=== PATIENT | female | born 1955 | race Caucasian/White ===

== ENCOUNTER 2018-07-23 07:28 | Day surgery (SDC) | payer OTHER, SELFPAY ==
[2018-07-15 13:06] VITALS: BMI 28.9
[2018-07-23 07:45] VITALS: BP 131/91; PULSE 66; RESP 18; TEMP 36.4; O2SAT 100; BMI 28.3
[2018-07-23 08:30] VITALS: BP 131/91; BP 84/48; PULSE 91; RESP 16; TEMP 36.7; O2SAT 98
--- NOTE | 2018-07-23 08:30 | IMM_PTH ---
PATIENT: MANSOOR OSMAN LOC: EN U#:[id number] AGE/SX: 63/F ROOM: RE07/23/[address]: Dr. Theresa Maurice MD : 1955 BED: DIS: 07/23/2018 SPEC #: [id number] RECD: 07/23/18 13:10 STATUS: MYRIAM REQ #: [id number] VITO: 07/23/18 08:[address]: Theresa Maurice DEPT: IMMUNOHISTOCHEMISTRY RECD BY: Rachell Bliss ENTERED: 07/23/18 13:10 SP TYPE: IMMUNO OTHR DR: WOLF Garcia Tissues: A - Stomach, NOS Procedures: H Pylori (initial) PHYSICIAN & INSTITUTION [place] [id number] SPECIMEN INFORMATION: Tissue Source: A - Antral biopsy Clinical Info: Epigastric pain Specimen Number: [id number] CPT code: 38333 METHODOLOGY: Deparaffinized sections of prefer/formalin-fixed tissue or PAP/DQ stained slides are incubated with monoclonal/polyclonal antibodies/oligonucleotide probes. Localization is made via biotin free immunoperoxidase method. Appropriate controls are performed and reacted as expected. Results on target cell population are indicated in the following table: RESULTS: ANTIBODY / CLONE RESULT Block A H Pylori (polyclonal) negative These tests were developed and their performance characteristics determined by [facility]. They may not have been cleared or approved by the [place]. Food and Drug Administration. The FDA has determined that such clearance or approval is not necessary. INTERPRETATION: A. Antral biopsy: Negative for Helicobacter pylori organisms. SJ:bronson 07/24/18
--- NOTE | 2018-07-23 08:30 | OP.ENDO_ITS ---
Patient Name: Evelyn Calle Procedure Date: 07/23/2018 8:05 AM Date of : 1955 Age: 63 Procedure: Upper GI endoscopy Indications: Dyspepsia Providers: Theresa Maurice MD Referring MD: Maddy Yao Medicines: Monitored Anesthesia Care Patient Profile: This is a 63 year old female. Patient has symptoms of chronic dyspepsia. Complications: No immediate complications. Procedure: Pre-Anesthesia Assessment: - Prior to the procedure, a History and Physical was performed, and patient medications and allergies were reviewed. The patient's tolerance of previous anesthesia was also reviewed. The risks and benefits of the procedure and the sedation options and risks were discussed with the patient. All questions were answered, and informed consent was obtained. Prior Anticoagulants: The patient has taken no previous anticoagulant or antiplatelet agents. ASA Grade Assessment: II - A patient with mild systemic disease. After reviewing the risks and benefits, the patient was deemed in satisfactory condition to undergo the procedure. After obtaining informed consent, the endoscope was passed under direct vision. Throughout the procedure, the patient's blood pressure, pulse, and oxygen saturations were monitored continuously. The gastroscope was introduced through the mouth, and advanced to the second part of duodenum. The upper GI endoscopy was accomplished without difficulty. The patient tolerated the procedure well. Scope In: 8:16:38 AM Scope Out: 8:24:18 AM Total Procedure Duration Time 0 hours 7 minutes 40 seconds Findings: The Z-line was irregular. Biopsies were taken with a cold forceps for histology. Mild inflammation characterized by erythema was found in the gastric antrum. Biopsies were taken with a cold forceps for histology. Biopsies were taken with a cold forceps for Helicobacter pylori cultures. The examined duodenum was normal. Impression: - Z-line irregular. Biopsied. - Gastritis. Biopsied. - Normal examined duodenum. Recommendation: - Await pathology results. - Discharge patient to home. - Continue present medications, including protonix 40 mg PO Qday. Procedure Code(s): --- Professional --- 52435, Esophagogastroduodenoscopy, flexible, transoral; with biopsy, single or multiple Diagnosis Code(s): --- Professional --- K22.8, Other specified diseases of esophagus K29.70, Gastritis, unspecified, without bleeding R10.13, Epigastric pain CPT copyright 2017 [employer]. All rights reserved. The codes documented in this report are preliminary and upon hims coder review may be revised to meet current compliance requirements. MD Theresa Costa MD 07/23/2018 8:29:43 AM This report has been signed electronically. Number of Addenda: 0 Note Initiated On: 07/23/2018 8:05 AM
--- NOTE | 2018-07-23 08:30 | EGD_PTH ---
PATIENT: MANSOOR OSMAN LOC: EN U#:[id number] AGE/SX: 63/F ROOM: RE07/23/[address]: Dr. Theresa Maurice MD : 1955 BED: DIS: 07/23/2018 SPEC #: [id number] RECD: 07/23/18 10:42 STATUS: MYRIAM ZEINA #: [id number] VITO: 07/23/18 08:[address]: Theresa Maurice DEPT: SURGICAL PATHOLOGY RECD BY: Michel Velasquez ENTERED: 07/23/18 11:25 SP TYPE: EGD BIOPSY ANIKA DR: WOLF Garcia Tissues: A - Gastric mucous membrane B - Gastric mucous membrane Procedures: Special Stain Group II Surgery Specimen Level IV Alcian Blue/PAS (control) HEADER OPERATION: [place] [place] PRE[place]OP DIAGNOSIS: Epigastric pain TISSUE SUBMITTED: A - Antral biopsy for histo and H. pylori, B - GE junction biopsy MICROSCOPIC DIAGNOSIS A. Antral biopsy: Mild gastritis. See microscopic description and comment. B. GE junction, biopsy: Fragments of gastroesophageal mucosa with chronic inflammation. Intestinal metaplasia (goblet cell metaplasia) is not identified. See comment. SJ:bronson 07/24/18 COMMENT A. The results of immunohistochemistry for Helicobacter pylori will be reported separately ([id number]). B. Alcian blue/PAS stain with matched control is used in the evaluation of the specimen. MICROSCOPIC DESCRIPTION Slides are reviewed. A. The specimen shows fragments of gastric mucosa with chronic inflammatory cell infiltrates in the lamina propria consisting of lymphocytes and plasma cells, consistent with mild chronic gastritis. GROSS DESCRIPTION A - Received in fixative is one container labeled with the patient's name and designated antral biopsy. The specimen consists of one irregular fragment of light carter soft tissue that measures 0.3 x 0.3 x 0.1 cm. The specimen is totally submitted in one cassette. B - Received in fixative is one container labeled with the patient's name and designated GE junction biopsy. The specimen consists of two irregular fragments of light carter soft tissue that in aggregate measure 0.4 x 0.2 x 0.1 cm. The specimen is totally submitted in one cassette. / RUTHY:bronson 07/23/18 TC:3 CPT: 97232 x2, 99929
[2018-07-23 08:35] VITALS: BP 131/91; BP 97/56; PULSE 82; RESP 16; O2SAT 96
[2018-07-23 08:40] VITALS: BP 102/64; BP 131/91; PULSE 75; RESP 16; O2SAT 99
[2018-07-23 08:46] VITALS: BP 112/69; BP 131/91; PULSE 67; RESP 16; TEMP 36.9; O2SAT 99
[2018-07-23 09:24] VITALS: BP 131/91
--- OUTSIDE RECORDS SUMMARY | 2018-09-08 02:32 | XMS RPT_ITS ---
:1955 Author Organization OHIP Support Name Relationship Address Phone [employer] Unavailable [address] + [place] [address] [place] Unavailable [address] + [place] [address] [employer] Unavailable [address] + [place] [address] [place] Unavailable [address] + [place] [address] [employer] Unavailable . + [place] [address] [place] Unavailable [address] + [place], [place] [phone] [place] Unavailable [address] Unavailable [place], [place] [phone] NOT GIVEN Unavailable Unavailable Unavailable [place] Unavailable [address] + [place], [place] [phone] [place] Unavailable [address] Unavailable [place], [place] [phone] NOT GIVEN Unavailable Unavailable Unavailable [place] Unavailable [address] + [place], [place] [phone] [place] Unavailable [address] Unavailable [place], [place] [phone] NOT GIVEN Unavailable Unavailable Unavailable NOT GIVEN Unavailable Unavailable Unavailable NOT GIVEN Unavailable Unavailable Unavailable NOT GIVEN Unavailable Unavailable Unavailable Care Team Providers Name Role Phone Robotham, Theresa Attending Unavailable YAO, SUNNY Referring Unavailable Robotham, Theresa Attending Unavailable Robotham, Theresa Referring Unavailable YAO, SUNNY Primary Care Unavailable Robotham, Theresa Attending Unavailable YAO, SUNNY J Admitting Unavailable YAO, SUNNY J Attending Unavailable YAO, SUNNY J Primary Care Unavailable YAO, SUNNY J Admitting Unavailable YAO, SUNNY J Attending Unavailable YAO, SUNNY J Primary Care Unavailable YAO, SUNNY J Admitting Unavailable YAO, SUNNY J Attending Unavailable YAO, SUNNY J Primary Care Unavailable YAO, SUNNY J Consulting Unavailable PROVIDER, UNKNOWN Consulting Unavailable LOPEZ, PARISH E Admitting Unavailable LOPEZ, PARISH E Attending Unavailable LOPEZ, PARISH E Primary Care Unavailable YAO, SUNNY J Consulting Unavailable PROVIDER, UNKNOWN Consulting Unavailable VILLA GARZA Admitting Unavailable VILLA GARZA Attending Unavailable VILLA GARZA Primary Care Unavailable YAO, SUNNY J Consulting Unavailable PROVIDER, UNKNOWN Consulting Unavailable YAO, SUNNY J Admitting Unavailable YAO, SUNNY J Attending Unavailable YAO, SUNNY J Primary Care Unavailable YAO, SUNNY J Consulting Unavailable PROVIDER, UNKNOWN Consulting Unavailable JOSELUIS RICCI M.D. Attending Unavailable VILLA GARZA Attending Unavailable VILLA GARAZ Attending Unavailable JOSELUIS RICCI M.D. Attending Unavailable PROBLEMS PROBLEMS DATE TYPE CONDITION / CODE ATTENDING STATUS SOURCE 07/31/2018 Unknown R10.13 - Epigastric Robotham, Active [facility] / [facility] R10.13(ICD-10) Hospital Repository 07/31/2018 Unknown K22.8 - Other Robotham, Active Denise specified diseases [facility] of esophagus / Hospital K22.8(ICD-10) Repository 07/31/2018 Unknown K29.70 - Gastritis, Robotham, Active Denise unspecified, without [facility] Community bleeding / Hospital K29.70(ICD-10) Repository 05/22/2018 Admitting Other specified LOPEZ, Active Zack[facility] Diagnosis hypothyroidism / PARISH E [facility] E038(ICD-10) Hospital Repository 05/22/2018 Principle Other specified LOPEZ, Active [facility] Diagnosis hypothyroidism / PARISH E [facility] E038(ICD-10) Hospital Repository 02/27/2018 Principle Unspecified symptoms YAO, Active [facility] Diagnosis and signs involving SUNNY [facility] Rep[facility] R399(ICD-10) 10/08/2017 Admitting Unknown / ORAFU, Active [facility] diagnosis UNK(Unknown) JOSELUIS [facility] Repository PROCEDURES PROCEDURES No Procedure Records FoundRESULTS RESULTS OPERATIVE REPORT - Observed: 07/23/2018 Status: F Source: [place] [facility] 8:30 AM [facility] [place] [facility] Medical Records Department [address] [place] [address] [place] [address] Operative Report - Endoscopy MR#: [id number] Acct: [id number] Name: EVELYN CALLE Rep #: [id number] : 1955 63 From: Theresa Maurice MD PCP: WOLF ARSHAD Status: [facility] Patient Name: Evelyn Calle Procedure Date: 07/23/2018 8:05 AM Date of : 1955 Age: 63 Procedure: Upper GI endoscopy Indications: Dyspepsia Providers: Theresa Maurice MD Referring MD: Sunny Yao Medicines: Monitored Anesthesia Care Patient Profile: This is a 63 year old female. Patient has symptoms of chronic dyspepsia. Complications: No immediate complications. Procedure: Pre-Anesthesia Assessment: - Prior to the procedure, a History and Physical was performed, and patient medications and allergies were reviewed. The patient's tolerance of previous anesthesia was also reviewed. The risks and benefits of the procedure and the sedation options and risks were discussed with the patient. All questions were answered, and informed consent was obtained. Prior Anticoagulants: The patient has taken no previous anticoagulant or antiplatelet agents. ASA Grade Assessment: II - A patient with mild systemic disease. After reviewing the risks and benefits, the patient was deemed in satisfactory condition to undergo the procedure. After obtaining informed consent, the endoscope was passed under direct vision. Throughout the procedure, the patient's blood pressure, pulse, and oxygen saturations were monitored continuously. The gastroscope was introduced through the mouth, and advanced to the second part of duodenum. The upper GI endoscopy was accomplished without difficulty. The patient tolerated the procedure well. Scope In: 8:16:38 AM Scope Out: 8:24:18 AM Total Procedure Duration Time 0 hours 7 minutes 40 seconds Findings: The Z-line was irregular. Biopsies were taken with a cold forceps for histology. Mild inflammation characterized by erythema was found in the gastric antrum. Biopsies were taken with a cold forceps for histology. Biopsies were taken with a cold forceps for Helicobacter pylori cultures. The examined duodenum was normal. Impression: - Z-line irregular. Biopsied. - Gastritis. Biopsied. - Normal examined duodenum. Recommendation: - Await pathology results. - Discharge patient to home. - Continue present medications, including protonix 40 mg PO Qday. Procedure Code(s): --- Professional --- 17468, Esophagogastroduodenoscopy, flexible, transoral; with biopsy, single or multiple Diagnosis Code(s): --- Professional --- K22.8, Other specified diseases of esophagus K29.70, Gastritis, unspecified, without bleeding R10.13, Epigastric pain CPT copyright 2017 [employer]. All rights reserved. The codes documented in this report are preliminary and upon community relations assistant review may be revised to meet current compliance requirements. MD Theresa Costa MD 07/23/2018 8:29:43 AM This report has been signed electronically. Number of Addenda: 0 Note Initiated On: 07/23/2018 8:05 AM 07/23/18828 Date Theresa Maurice MD Cosigner Signature: Date (if indicated) CC: WOLF YAO; Theresa Maurice MD Date Dictated: 07/23/18804 Date Transcribed: Boat Carpenter Mechanic: ALYX Signed EGD ([facility] SITE) Observed: 07/23/2018 Status: F Source: [place] 8:30 AM [facility] [place] Patient: EVELYN CALLE : 1955 (63/F) Acct Num: [id number] Phys: Theresa Maurice MD Unit Num: [id number] Loc: EN Specimen: [id number] Received: 07/23/18 - 1042 Spec Type: EGD BIOPSY TISSUES 1 TISSUES: A. Gastric mucous membrane B. Gastric mucous membrane COMMENT A. The results of immunohistochemistry for Helicobacter pylori will be reported separately ([id number]). B. Alcian blue/PAS stain with matched control is used in the evaluation of the specimen. GROSS DESCRIPTION A - Received in fixative is one container labeled with the patient's name and designated antral biopsy. The specimen consists of one irregular fragment of light cartre soft tissue that measures 0.3 x 0.3 x 0.1 cm. The specimen is totally submitted in one cassette. B - Received in fixative is one container labeled with the patient's name and designated GE junction biopsy. The specimen consists of two irregular fragments of light carter soft tissue that in aggregate measure 0.4 x 0.2 x 0.1 cm. The specimen is totally submitted in one cassette. / RUTHY:bronson 07/23/18 TC:3 CPT: 82315 x2, 48239 HEADER OPERATION: EGD ([facility]) PRE-OP DIAGNOSIS: Epigastric pain TISSUE SUBMITTED: A - Antral biopsy for histo and H. pylori, B - GE junction biopsy MICROSCOPIC DESCRIPTION Slides are reviewed. A. The specimen shows fragments of gastric mucosa with chronic inflammatory cell infiltrates in the lamina propria consisting of lymphocytes and plasma cells, consistent with mild chronic gastritis. MICROSCOPIC DIAGNOSIS A. Antral biopsy: Mild gastritis. See microscopic description and comment. B. GE junction, biopsy: Fragments of gastroesophageal mucosa with chronic inflammation. Intestinal metaplasia (goblet cell metaplasia) is not identified. See comment. SJ:bronson 07/24/18 Signed Alvarez Clements 07/24/18 <signature on file> Performed By: #### PEGD #### [facility] [address] [place] [address]. [place], [address] IMMUNOHISTOCHEMISTRY Observed: 07/23/2018 Status: F Source: [place] 8:30 AM [facility] [place] [place] Patient: EVELYN CALLE : 1955 (63/F) Acct Num: [id number] Phys: Kaylene BERGER,Theresa Unit Num: [id number] Loc: EN Specimen: [id number] Received: 07/23/18 - 1309 Spec Type: IMMUNO TISSUES 1 TISSUES: A. Stomach, NOS SPECIMEN INFORMATION: Tissue Source: A - Antral biopsy Clinical Info: Epigastric pain Specimen Number: [id number] CPT code: 28461 METHODOLOGY: Deparaffinized sections of prefer/formalin-fixed tissue or PAP/DQ stained slides are incubated with monoclonal/polyclonal antibodies/oligonucleotide probes. Localization is made via biotin free immunoperoxidase method. Appropriate controls are performed and reacted as expected. Results on target cell population are indicated in the following table: RESULTS: ANTIBODY / CLONE RESULT Block A H Pylori (polyclonal) negative These tests were developed and their performance characteristics determined by [facility]. They may not have been cleared or approved by the U.S. Food and Drug Administration. The FDA has determined that such clearance or approval is not necessary. INTERPRETATION: A. Antral biopsy: Negative for Helicobacter pylori organisms. SJ:bronson 07/24/18 PHYSICIAN AND INSTITUTION [address] [address] Signed Alvarez Clements 07/24/18 <signature on file> Performed By: #### PIMM #### [facility] [address] [place] [address]. [place], [place], [id number] PAP(LB),RFLX HI Collected: 07/22/2018 Status: F Source: [place] 7:54 AM [facility] [place] [place] Order Comment: Specimen Comment: [id number] Specimen Comment: Source.............Cervix Specimen Comment: Other..............Post Menopausal Specimen Comment: No. of containers..01 ThinPrep Vial TYPE CODE TESTS RESULT OUT OF RANGE REFERENCE UNITS LAB L801.4020 Test Normal Ordered Pap(Lb), rflx HPV LAB L801.4024 Normal DIAGNOSIS Result Comment: NEGATIVE FOR INTRAEPITHELIAL LESION AND MALIGNANCY. LAB L801.4028 Normal Spec Adequacy Result Comment: Satisfactory for evaluation. Endocervical and/or squamous metaplastic cells (endocervical component) are present. LAB L801.4046 Normal Performed By Result Comment: Queta Najera, Director Cardiology (ASCP) LAB L801.4060 . Normal . . LAB L801.4074 Normal Note Result Comment: The Pap smear is a screening test designed to aid in the detection of premalignant and malignant conditions of the uterine cervix. It is not a diagnostic procedure and should not be used as the sole means of detecting cervical cancer. Both false-positive and false-negative reports do occur. LAB L801.4076 Normal . Result Comment: The HPV DNA reflex criteria were not met with this specimen result therefore, no HPV testing was performed. Performed at: [facility] [place] [id number] Green Chainer: Radha Odonnell MD, Phone: [phone] Performed By: #### L801.4000 #### [place] [address] SURGERY VISIT REPORT Observed: 07/15/2018 Status: F Source: [place] 1:50 PM [facility] [place] [place] [facility] [address] [place] [address] OFFICE VISIT Date of Service: 07/15/18 MR#: [id number] Acct: [id number] Name: EVELYN CALLE Rep #: [id number] : 1955 Provider: Theresa Maurice MD Age/Sex: 63/F Location: 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 Required: No Is patient in pain?: No Allergies No Known Allergies Allergy (Unverified 07/15/18 13:07) Medications estradiol 0.01% (0.1 mg/gram) vaginal cream 1 g VAGINAL 2XW 07/15/18 [History Confirmed 07/15/18] levothyroxine 88 mcg capsule 88 mcg PO DAILY 07/15/18 [History Confirmed 07/15/18] omeprazole 20 mg capsule,delayed release 20 mg PO DAILY 07/15/18 [History Confirmed 07/15/18] pantoprazole 40 mg tablet,delayed release 40 mg PO DAILY #30 tab 07/15/18 [Rx Confirmed 07/15/18] PENDING SALE TO [facility] Medical History Acid reflux (Acute) Arthritis (Acute) Nausea (Acute) Thyroid disease (Acute) Surgical History History of esophagogastroduodenoscopy (EGD) (Acute 08/2014) History of laparoscopic cholecystectomy (Acute 2014) history c-scope (Acute 08/2014) Family History Grandfather Diabetes Grandmother Heart disease Mother Hypertension Social History Smoking Status: Former smoker alcohol intake: never substance use type: does not use HPI HPI HPI: EVELYN CALLE, is a 63 F who presents to the office today for nausea and epigastric discomfort. Patient states that she does not really feel like she is going to vomit that she may not really be having nausea and may be more of an upset stomach. She also denies pain at her epigastric region but does feel some discomfort or upset stomach in that region. She states she has had it for about a month. Patient had previously been on Prilosec 20 mg p.o. daily for about 6 years due to heartburn with symptoms of burning in her esophagus. Her EGD was in 2013 which per the report did show some gastritis but no biopsies were done in [place]. Patient states about 7 months ago she came off the Prilosec due to having osteopenia however about a month ago the symptoms began. Patient did initially try to be on Pepcid twice daily for 1 week but denies any changes in her symptoms which she had daily. Currently she is on Prilosec 20 mg p.o. daily and she states that about every other day she may not have the discomfort or she may have it all day. Patient states she is eating okay and her appetite is also okay, and she has bowel movements daily denies any blood. Her last colonoscopy was also in 2013 in June. ROS General General: No weight change, appetite, fatigue, colon cancer, breast cancer or weakness HEENT HEENT: No difficulty swallowing, eye injury, eye surgery, swollen glands or hoarseness Endo Endocrine: Yes thyroid disease; no diabetes mellitus, thyroid cancer, Hair loss, heat intolerance or cold intolerance Skin Skin: No rash or changing moles Breast Breast: No left breast lump, right breast lump, nipple discharge, breast pain, abnormal mammogram, abnormal US or breast enlargement Musc Musculoskeletal: Yes arthritis; no back problems, rheumatoid arthritis, gout or joint pain Cardio Cardiovascular: No murmur, pacemaker, heart disease, atrial fibrillation, high blood pressure, heart attack, heart stent, palpitations, shortness of breat with exertion or chest pain Psych Psychiatric: No depression, anxiety or hearing voices Resp Respiratory: No shortness of breath, No sleep apnea, No cough, No COPD, No asthma, No emphysema, No wheezing Gastro Gastrointestinal: No abdominal pain, Yes nausea or vomiting, No diarrhea, No constipation, No blood in stool, Yes acid reflux, No hemorrhoids, No ulcers, Yes gallbladder problem, No black,tarry stools Franc Hematologic: No blood thinners, No blood disorders, No bleeding, No anemia, No blood clots Neuro Neurologic: No system reviewed and no additional complaints, except as docu, No as per HPI, No abnormal walking, No abnormal hearing, No abnormal movements, No abnormal speech, No behavioral changes, No burning sensations, No confusion, No seizure-like activity, No unsteadiness, No dizziness, No localized weakness, No frequent falls, No headache(s), No lack of coordination, No loss of vision, No memory loss, No numbness, No other visual disturbances, No radiating pain, No restless legs, No sensory deficit, No fainting, No tingling, No tremor(s), No weakness, No other Exam Const General: cooperative, comfortable, no acute distress Chest Breast Palpation: No nipple discharge Resp Effort AND Inspection: normal respiratory effort Cardio Heart Sounds: no murmurs GI Inspection: non-distended, scar (Well-healed infraumbilical, epigastric, bilateral lower quadrant incisions) Palpation: soft, tender (Minimal in the LLQ, none on palp of epigastric/LUQ/RUQ), no guarding Psych Appearance: well kempt Affect: normal affect Assessment AND Plan Problems 1. Epigastric discomfort R10.13 Plan Patient does state that the Prilosec 20 mg p.o. daily did help with her symptoms and she had no symptoms about every other day. Patient did try Pepcid twice daily however she still had symptoms daily. Patient has been on Prilosec for about 6 years however her symptoms previous to this were more heartburn/burning her esophagus. Currently she initially stated it was nausea however she also stated she does not feel like she is going to vomit and may be it is more of an upset stomach/discomfort in her epigastric region. Recommend trying Protonix 40 mg p.o. daily times 1 month to see if that improves and may be she can then cut back to the 20 mg. I also recommended that she get an EGD done as her last one was in June 2014 at that time no biopsies were done but it did show some gastritis. I have discussed the above with the patient. I have offered the patient EGD for evaluation. I have explained the risks/benefits of the procedure and described the procedure. I have discussed the risks with the patient, including but not limited to: infection, bleeding, perforation of the GI tract requiring emergency surgery, inability to complete the procedure, injury to any internal organs, complications of anesthesia, etc. - the patient understands and agrees to proceed. I have answered all the patient's questions to the patient's satisfaction and the patient has no further questions. Theresa Maurice M.D. Pager: [phone] [facility] [address] [place] [address], [facility], [address] [place] [address] Office: [phone] range left message at their office know when he is 1 back number left message for them to ask her to call patient is normal but a slight getting up anxiety this is what she she only she is she has urine biopsies and is no biopsies of like what you know he was out was not was okay Orders Orders: Medications New: Plan Detail Follow Up Will schedule EGD Coding Level of Care Code Off vis,new,level 3 Diagnoses Epigastric discomfort R10.13 07/15/18 1350 <Electronically signed by Theresa Maurice MD> Date Theresa Bernstein Signature: Date (if applicable) CC: WOLF YAO LIPID PROFILE Collected: 06/05/2018 Status: F Source: [facility] 9:09 [facility] REPOSITORY TYPE CODE TESTS RESULT OUT OF REFERENCE UNITS RANGE LAB LIPID PROFILE(LOIN C) LIPID PROFILE Result Comment: LIPID PROFILE LAB TRIGLYCERIDE(LOINC) 0 - 150 mg/dl TRIGLYCERIDE 94 LAB CHOLESTEROL(LOINC) 0 - 200 mg/dl CHOLESTEROL High 239 LAB HDL(LOINC) 40 - 60 mg/dl HDL High 65 LAB CHOL/HDL(LOINC) 0.0 - 5.0 CHOL/HDL 3.7 LAB LDL(LOINC) 0 - 129 mg/dl LDL High 155 Performed By: #### [id number] #### [facility],[address] [place] [address] RUQ (GB/PANCREAS) Observed: 06/05/2018 Status: F [facility] REPOSITORY [place] [address] Patient: EVELYN CALLE Phone#: : 1955 Age: 63 Gender: F Pt. Type: Out Account: [id number] Location: Ordering: VILLA GARZA Exam Date: 06/05/2018/8:02 Family Phys: SUNNY YAO Charge Code: 809848 Physician: Green Order #: [id number] DLP Dose#: PROCEDURE: RUQ (GB) ULTRASOUND COMPARISON: [facility], , RUQ (GB), 07/15/2014, 7:48. INDICATIONS: Abnormal liver enzymes FINDINGS: LIVER: Normal. Normal size and echotexture. No significant masses. BILIARY: The gallbladder is absent. The common bile duct is 6.4 mm. PANCREAS: The pancreas is obscured by bowel gas. RIGHT KIDNEY: Normal. No mass or obstruction. OTHER: Negative. CONCLUSION: 1. Unremarkable right upper quadrant ultrasound post cholecystectomy. DICTATED BY: KENNETH CARRASCO MD ON 06/05/2018 AT 9:11 APPROVED BY: KENNETH CARRASCO MD ON 06/05/2018 AT 9:11 CMP WITH EGFR Collected: 05/22/2018 Status: F Source: [facility] 2:26 PM [facility] REPOSITORY TYPE CODE TESTS RESULT OUT OF RANGE REFERENCE UNITS LAB CMP with eGFR(LOINC) CMP with eGFR Result Comment: COMPREHENSIVE METABOLIC PANEL LAB SODIUM(LOINC) 136 - 145 mmol/l SODIUM 138 LAB POTASSIUM(LOINC) 3.5 - 5.1 mmol/L POTASSIUM 4.1 LAB CHLORIDE(LOINC) 98 - 107 mmol/L CHLORIDE 104 LAB CO2(LOINC) 21.0 - mmol/L 31.0 CO2 26.5 LAB GLUCOSE(LOINC) 74 - 106 mg/dl GLUCOSE 96 LAB BUN(LOINC) 6 - 20 mg/dl BUN 18 LAB CREATININE(LOINC) 0.6 - 1.2 mg/dl CREATININE 1.0 LAB AST/SGOT(LOINC) 13 - 39 U/L AST/SGOT 30 LAB ALK PHOS(LOINC) 38 - 126 U/L ALK PHOS 88 LAB CALCIUM(LOINC) 8.6 - mg/dl 10.2 CALCIUM 10.1 LAB TOTAL 6.4 - 8.3 g/dl PROTEIN(LOINC) TOTAL PROTEIN 7.5 LAB ALBUMIN(LOINC) 3.4 - 4.8 g/dL ALBUMIN 4.6 LAB GLOBULIN(LOINC) 1.5 - 3.8 G/DL GLOBULIN 2.9 LAB A/G RATIO(LOINC) 0.9 - 1.6 A/G RATIO 1.6 LAB TOTAL BILI(LOINC) 0.0 - 1.5 mg/dl TOTAL BILI 0.5 LAB B/C RATIO(LOINC) 0 - 30 ratio B/C RATIO 18 LAB ALT/SGPT(LOINC) 8 - 35 U/L ALT/SGPT High 46 LAB ANION GAP(LOINC) 10 - 20 mmol/L ANION GAP 12 LAB AGE(LOINC) years AGE 63 LAB eGFR(LOINC) 60 - 999 ML/MINUTE eGFR Low 56 LAB eGFR(AA)(LOINC) 60 - 999 ML/MINUTE eGFR(AA) >60 Result Comment: ACCORDING TO THE NATIONAL KIDNEY DISEASE EDUCATION PROGRAM(NKDE), A NORMAL eGFR IS A VALUE GREATER THAN OR EQUAL TO 60 ML/MIN/1.73 SQ METERS. CHRONIC KIDNEY DISEASE: <60mL/MIN/1.73 SQ METERS KIDNEY FAILURE: <15mL/MIN/1.73 SQ METERS THIS TEST SHOULD ONLY BE USED FOR PATIENTS 18 YEARS OF AGE AND OLDER. Performed By: #### [id number] #### [facility],[address] [place], [place] [id number] CMP Collected: 05/13/2018 Status: F Source: [facility] 1:53 PM HOSPITAL REPOSITORY TYPE CODE TESTS RESULT OUT OF RANGE REFERENCE UNITS LAB L100.0060 82-115 mg/dL GLUCOSE Normal 88 LAB L100.0110 8-23 mg/dL BUN Normal 18 LAB L100.0131 0.50-0.90 mg/dL Normal CREATININE 0.81 LAB L100.0140 8.8-10.2 mg/dL High CALCIUM 10.4 LAB L100.0150 135-145 mmol/L SODIUM Normal 141 LAB L100.0160 3.5-5.0 mmol/L Normal POTASSIUM 4.6 LAB L100.0170 98-107 mmol/L CHLORIDE Normal 102 LAB L100.0180 22-29 mmol/L TCO2 Normal 26 LAB L100.0185 15-22 mmol/L ANION Normal GAP 17.6 LAB L100.0200 6.4-8.3 g/dL TOTAL Normal PROTEIN 7.7 LAB L100.0210 3.5-5.2 g/dL ALBUMIN Normal 4.6 LAB L100.0220 0.2-1.2 mg/dL TOTAL Normal BILIRUBIN 0.5 LAB L100.0240 5-32 U/L High AST 47 LAB L100.0250 5-33 U/L High ALT 79 LAB L100.0260 35-105 U/L High ALK. PHOS 111 LAB L100.0262 1.5-4.5 g/dL Normal GLOBULIN,CALC 3.1 LAB L100.0264 1.1-2.5 A:G Normal RATIO 1.48 LAB L100.0274 eGFR Normal nonAFR Edilia > 60 ml/Min/1.73m 2 LAB L100.0275 eGFR if Normal AFR EDILIA > 60 ml/min/1.73m 2 Result Comment: eGFR >= 60 Indicates normal kidney function. * eGFR IS AN ESTIMATE * (AFR EDILIA = ) (non-AFR AM = NON-) MDRD calculation used in the eGFR should not be used to dose medications. For further limitations of the eGFR please refer to the Physician Website or the National Kidney Disease Education Program website (www.nkdep.nih.gov). Performed By: #### L100.0005, L304.0140, L304.0470 #### [facility] [address] [place] [address] 22158 TSH Collected: 05/13/2018 Status: F Source: [facility] 1:53 PM [facility] REPOSITORY TYPE CODE TESTS RESULT OUT OF RANGE REFERENCE UNITS LAB L304.0140 0.45-4.50 uIU/mL Low TSH 0.27 Performed By: #### L100.0005, L304.0140, L304.0470 #### [facility] - [facility] [address] [place] [address] 04993 VITAMIN D Collected: 05/13/2018 Status: F Source: [place] 1:53 [facility] REPOSITORY TYPE CODE TESTS RESULT OUT OF RANGE REFERENCE UNITS LAB L304.0470 30-100 ng/mL Normal VITAMIN D 53.8 Performed By: #### L100.0005, L304.0140, L304.0470 #### [facility] - [facility] [address] [place] [address] 30085 PTH Collected: 05/13/2018 Status: F Source: [facility] 1:53 [facility] REPOSITORY TYPE CODE TESTS RESULT OUT OF RANGE REFERENCE UNITS LAB L304.0135 15-65 pg/mL Normal PTH 36.8 Performed By: #### L304.0135 #### [facility] - [facility] [address] [place] [address] 32121 Observed: 02/27/2018 Status: F Source: [facility] CULTURE URINE 2:16 PM [facility] REPOSITORY CULTURE URINE _URINE CULTURE_ M I C R O B I O L O G Y R E P O R T FINAL Antimicrobial Susceptibility and Organism Identification Report Specimen Number : [id number] Requested : 02/27/18 Specimen Source : URINE Collected : 02/27/18 14:16 [place] : OUTPATIENT Received : 02/27/18 14:16 Requesting Physician : RUFINO Patient/Specimen Tests and Comments Specimen Comments FINAL REPORT: NO GROWTH AT 48 HOURS Tech : Source : URINE ID # : [id number] FINAL Report Date : / / : Collected : 02/27/18 14:16 03/03/18.1100.KLS. 03/02/18.0923.ABELINOO. 03/03/18.1100.KLS.COMPLETE Performed By: #### [id number] #### [facility],[address] [place] [address] Observed: 02/20/2018 Status: F Source: [facility] CULTURE URINE 3:08 PM [facility] REPOSITORY CULTURE URINE _URINE CULTURE_ M I C R O B I O L O G Y R E P O R T FINAL Antimicrobial Susceptibility and Organism Identification Report Specimen Number : [id number] Requested : 02/20/18 Specimen Source : URINE Collected : 02/20/18 15:08 [place] : OUTPATIENT Received : 02/20/18 15:08 Requesting Physician : RUFINO Patient/Specimen Tests and Comments Specimen Comments FINAL REPORT: URINE COLONY COUNT: > THAN 100,000 CFU/CC GRAM NEGATIVE RODS GRAM POSITIVE COCCI Organisms Identified -------- * 01 Klebsiella pneumoniae 02/22/18 Comments <100,000 CFU -------- * 02 Enterococcus faecalis 02/22/18 Comments 10-50,000 CFU Tech : Source : URINE ID # : [id number] FINAL Report Date : / / : Collected : 02/20/18 15:08 Continued on Next Page Taylor Skinner R Klaudia B I O Eric O G Y R E P O R T FINAL Antimicrobial Susceptibility and Organism Identification Report Isolate 01 Klebsiella pneumoniae Isolate 02 Enterococcus faecalis Klebsiella pneumoniae Enterococcus faecalis DRUG MOSES Sys. Urine MOSES Sys. Urine --- ----- ----- --- ----- ----- Amp/Sulbactam <=8/4 S S --- Ampicillin >16 R R <=2 S S Ceftriaxone <=8 S S --- Cephalothin <=8 S --- Ciprofloxacin <=1 S S <=1 S S Cefuroxime <=4 S S --- Ertapenem <=1 S S --- Nitrofurantoin 64 I <=32 S Imipenem <=1 S S --- Levofloxacin <=2 S S <=1 S S Meropenem <=1 S S --- Pip/Tazo <=16 S S --- Trimeth/Sulfa <=2/38 S S --- Tetracycline <=4 S S >8 R R Tobramycin <=4 S S --- Clindamycin --- >4 Daptomycin --- 2 S S Linezolid --- 2 S S Moxifloxacin --- <=0.5 Penicillin --- 2 S S Vancomycin --- 2 S S +, ++, +++, or S = Susceptible N/R = Not Reported Mekhi = Beta Lactamase Positive I = Intermediate CC = Cost Code TFG = Thymidine-dependent Strain R = Resistant MOSES = mcg/ml (mg/L) Blank = Data not available, or drug not advisable or tested For Blood and CSF Isolates, a Beta-Lactamase test is recommended for Enterococus species. IB appears in place of S, I (S), +, ++, or +++ with species known to possess inducible B-lactamases; potentially they may become resistant to all B-lactam drugs. Monitoring of patients during/after therapy is recommended. Avoid other/combined B-lactam drugs. (a) Use maximum doses of drug with an aminoglycoside for P. aeruginosa in patients with granulocytopenia or serious infections. (b) Breakpoints based on parenteral dose. For cefuroxime Axetil (PO) use <8=S, 8-16=I, >16=R. (c) For non-enterococcal streptococci, Micrococcus species, and Listeria species, refer to the Ampicillin interpretation. * Interpretations based on approx. adult attainable systemic/urine levels, except drugs with <3 dilutions, which print NCCLS. Doses are guidelines; consider weight and renal/hepatic function. Urine interpretation for lower UTI only. Interpretations based on NCCLS M7-A2. Ticar/K Clav'ate for gram positives based on stack supervisor's breakpoints. Tech : Source : URINE ID # : [id number] FINAL Report Date : / / : Collected : 02/20/18 15:08 02/22/18.1451.JORDONN. 02/21/18.1415.KLS. 02/22/18.1451.JLN.COMPLETE Performed By: #### [id number] #### [facility],[address] [place] [address] Observed: 01/15/2018 Status: F Source: [facility] CULTURE URINE 10:50 [facility] REPOSITORY CULTURE URINE _URINE CULTURE_ M I C R O B I O L O G Y R E P O R T FINAL Antimicrobial Susceptibility and Organism Identification Report Specimen Number : [id number] Requested : 01/15/18 Specimen Source : URINE Collected : 01/15/18 10:50 [place] [facility] [place] : OUTPATIENT Received : 01/15/18 10:50 Requesting Physician : RUFINO Patient/Specimen Tests and Comments Specimen Comments FINAL REPORT: URINE COLONY COUNT: [id number] CFU/CC GROUP B STREPTOCOCCUS Tech : Source : URINE ID # : [id number] FINAL Report Date : / / : Collected : 01/15/18 10:50 01/17/18.914.DEBK. 01/16/18.1152.KLS. 01/17/18.915.WKK.COMPLETE Performed By: #### [id number] #### [facility]ackery [facility],[address] [place] [address] Collected: 12/10/2017 Status: F Source: [facility] 9:22 AM HOSPITAL REPOSITORY TYPE CODE TESTS RESULT OUT OF RANGE REFERENCE UNITS LAB L100.0060 82-115 mg/dL GLUCOSE Normal 91 LAB L100.0110 8-23 mg/dL BUN Normal 17 LAB L100.0131 0.50-0.90 mg/dL Normal CREATININE 0.84 LAB L100.0140 8.8-10.2 mg/dL CALCIUM Normal 10.0 LAB L100.0150 135-145 mmol/L SODIUM Normal 141 LAB L100.0160 3.5-5.0 mmol/L Normal POTASSIUM 5.0 LAB L100.0170 98-107 mmol/L CHLORIDE Normal 103 LAB L100.0180 22-29 mmol/L TCO2 Normal 25 LAB L100.0185 15-22 mmol/L ANION Normal GAP 18.0 LAB L100.0200 6.4-8.3 g/dL TOTAL Normal PROTEIN 7.7 LAB L100.0210 3.5-5.2 g/dL ALBUMIN Normal 4.5 LAB L100.0220 0.2-1.2 mg/dL TOTAL Normal BILIRUBIN 0.5 LAB L100.0240 5-32 U/L AST Normal 24 LAB L100.0250 5-33 U/L ALT Normal 21 LAB L100.0260 35-105 U/L ALK. Normal PHOS 100 LAB L100.0262 1.5-4.5 g/dL Normal GLOBULIN,CALC 3.2 LAB L100.0264 1.1-2.5 A:G Normal RATIO 1.40 LAB L100.0274 eGFR Normal nonAFR Edilia > 60 ml/Min/1.73m 2 LAB L100.0275 eGFR if Normal AFR EDILIA > 60 ml/min/1.73m 2 Result Comment: eGFR >= 60 Indicates normal kidney function. * eGFR IS AN ESTIMATE * (AFR EDILIA = ) (non-AFR AM = NON-) MDRD calculation used in the eGFR should not be used to dose medications. For further limitations of the eGFR please refer to the Physician Website or the National Kidney Disease Education Program website (www.nkdep.nih.gov). Performed By: #### L100.0005, L304.0140, L304.0470 #### [facility] - [facility] [address] [place] [address] 27599 TSH Collected: 12/10/2017 Status: F Source: [facility] 9:22 AM HOSPITAL REPOSITORY TYPE CODE TESTS RESULT OUT OF RANGE REFERENCE UNITS LAB L304.0140 0.45-4.50 uIU/mL Normal TSH 1.39 Performed By: #### L100.0005, L304.0140, L304.0470 #### [facility] - [facility] [address] [place] [address] 67441 VITAMIN D Collected: 12/10/2017 Status: F Source: [place] 9:22 AM [facility] [place]POSITORY TYPE CODE TESTS RESULT OUT OF RANGE REFERENCE UNITS LAB L304.0470 30-100 ng/mL Normal VITAMIN D 37.0 Performed By: #### L100.0005, L304.0140, L304.0470 #### [facility] - [facility] [address] [place] [address] 81905 ALLERGIES ALLERGIES DATE TYPE / CODE NAME / CODE REACTION SEVERITY SOURCE 07/21/2018 Drug No Known Unknown [place] Allergy/698602614([facility] [place] [address] Repository Miscellaneous No Known Drug Moderate Zackery [place]ome[place] Allergy/458446175(S Allergies (Severity [facility] NOMED CT) Modifier) Hospital (Qualifier Repository Value) ENCOUNTERS ENCOUNTERS ADMIT/DISCHARGE ACCOUNT ADMITTING ENCOUNTER LOCATION SOURCE NUMBER CLASS 07/23/2018/ [id number] Ambulatory [place] 8 6 [facility] ing:ENRoom: Repository AC12 07/23/2018/ [id number] Ambulatory BMSBuilding:B Denise 8 5 [place].CF.[facility] Repository 07/22/2018 [id number] Ambulatory [place] [address] ing:[facility] Repository 07/15/2018/ [id number] Ambulatory BMSBuilding:B [place] 8 1 MS.[facility] Repository 06/05/2018/ [id number] YAO, Ambulatory Zackery [place] 8 [facility] Repository 06/05/2018/ [id number] BHARTICHA, Ambulatory Zackery [place] 8 [facility] Repository 05/22/2018/ [id number] LOPEZ, Ambulatory Zackery [place] 8 [facility] Repository 05/13/2018 [id number] Ambulatory UNIBuilding:L [address] Repository 02/27/2018/ [id number] YAO, Ambulatory Zackery [place] 8 [facility] Repository 02/20/2018/ [id number] YAO, Ambulatory Zackery [place] 8 [facility] Repository 01/15/2018/ [id number] YAO, Ambulatory Zackery [place] 8 [facility] Repository 12/10/2017 [id number] Ambulatory UNIBuilding:L [address] Repository 10/08/2017 [id number] Ambulatory UNIBuilding:R [place] [address] [place] [address] Repository PAYERS PAYERS ENCOUNTER GUARANTOR PAYER SUBSCRIBER SOURCE 07/23/2018 EVELYN A [place] KINGDOB: Denisemariann [id number] ALUTIIQ Insurance:[employer] [id number] [place] Number: [facility] [address]Pkc: [id number] Repository Date:1900-91-73[address] (QC) [address] [address]VL: 07/23/2018 Secondary NOT GIVENUNK [place] Insurance:SELF PAY [facility] Number: Effective Repository Date:2018-07-16 07/23/2018 EVELYN A [place] KINGDOB: Denise [id number] ALUTIIQ Insurance:[employer] [id number] [place] Number: [facility] [address]Oyu: [id number] Repository Date:8400-14-85EF BOX (UH) [address] [address]AP: 07/23/2018 Secondary NOT GIVENUNK [place] Insurance:SELF PAY [facility] Number: Effective Repository Date:2018-07-23 07/22/2018 EVELYN A Primary RIVER Jose Armando MANN [place] [id number] [place] Insurance:[facility] [place] Number: Repository [place] [address]Myy: [id number] Date:2013-12-10 () 07/15/2018 EVELYN A Primary RIVER KINGDOB: [place] [id number] ALUTIIQ Insurance:[facility] [id number] [place] Number: [facility] [address]Eiz: [id number] Repository Date:3531-47-20FK [address] () [address] [address]DL: 07/15/2018 Secondary NOT GIVENUNK [place] Insurance:SELF PAY [facility] Number: Effective Repository Date:2018-07-02 06/05/2018 EVELYN A Primary RIVER A KINGDOB: Zackery [facility] MIFFLINDOB: Insurance:[employer] [id number] [facility] [address] Number: ANNE MARIERADHASCOTT, Repository JUAN MANUEL, [id number] [place] [id number] [place] [address]Uqs: Date:Plan Name:A2 () 06/05/2018 EVELYN A Primary R[place] A KINGDOB: Zackery [facility] MIFFLINDOB: Insurance:[employer] [id number] [facility] [address] Number: JUAN MANUEL, Repository FLJORGE LBANNER, [id number] [place] [id number] [place] [address]Gjz: Date:Plan Name:A2 () 05/22/2018 EVELYN A Primary R[place] A DOB: [facility] DOB: Insurance:[employer] [id number] [facility] OUTPATIENT[address] [place] Number: [facility], Repository [facility], [id number] [place] [id number] [place] [address]Kwc: Date:Plan Name:A2 () 05/13/2018 EVELYN A Primary [place] A [place] [id number] [place] Insurance:[facility] [place] Number: Repository [place] [address]Poz: [id number] Date:2013-12-10 () 02/27/2018 EVELYN A Primary RIVER A [facility] [id number] [facility] cy Number: 2 [facility] [id number] [facility], Repository [facility], Date:7368-57-64[place] [address] [place] [address]Uio: Name:PI () 02/20/2018 EVELYN A Primary RIVER A KINGDOB: [facility]: Insurance:[facility] [id number] [facility] [place] Number: 2 [facility] [id number] [facility], Repository [facility], Date:8020-60-50[place] [address] [place] [address]Fdv: Name:A2 () 01/15/2018 EVELYN A Primary [place] A [facility]INGDOB: [facility]: Insurance:[facility] [id number] [facility] [place] Number: 2 [facility] [id number] [facility], Repository [facility], Date:7874-90-78[place] [address] [place] [address]Qhr: Name:PI () 12/10/2017 EVELYN A Primary RIVER A [facility] [place] Insurance:[facility], [place] Number: Repository [place] [address]Isw: [id number] Date:2013-12-10 () 10/08/2017 EVELYN Suárez [address] Insurance:[facility] Number: [facility] [address]Dqh: [id number] Date:2013-12-10 ()
== END 2018-07-23 09:25 | disposition home or self-care (01) ==
LOC: EN 07:28 → AC 07:30
PROVIDERS: Family Provider Physician Assistant; PCP Physician Assistant; Referring Provider Surgery; Visit Provider Surgery
PROC: 0DJ08ZZ Inspection of Upper Intestinal Tract, Via Natural or Artificial Opening Endoscopic (ICD-10-PCS; CPT 43235; principal; 2018-07-23 08:25)
DX: K29.70 Gastritis, unspecified, without bleeding (principal); K22.8 Other specified diseases of esophagus; K21.9 Gastro-esophageal reflux disease without esophagitis; R10.13 Epigastric pain; E06.9 Thyroiditis, unspecified; M19.90 Unspecified osteoarthritis, unspecified site; Z79.899 Other long term (current) drug therapy; Z87.891 Personal history of nicotine dependence
CPT/HCPCS: 43239; 88305; 88313; 88342; J7120

== ENCOUNTER → 2019-03-26 16:12 | Outpatient (CLI) | payer OTHER, SELFPAY ==
--- NOTE | 2019-03-26 | LES_PTH ---
PATIENT: MANSOOR OSMAN LOC: [facility] U#:[id number] AGE/SX: 70/F ROOM: RE03/26/[address]: Dr. Abundio Luna MD : 1955 BED: DIS: SPEC #: [id number] RECD: 03/26/19 15:40 STATUS: MYRIAM ZEINA #: [id number] VITO: 03/26/19 00:[address]: Abundio Luna DEPT: SURGICAL PATHOLOGY RECD BY: Michel Velasquez ENTERED: 03/27/19 08:59 SP TYPE: Lesion OTHR DR: WOLF Garcia Tissues: Skin of face, NOS Procedures: Surgery Specimen Level IV HEADER OPERATION: Intradermal excision lesion right chin PRE-OP DIAGNOSIS: Enlarging lesion right chin TISSUE SUBMITTED: Right chin MICROSCOPIC DIAGNOSIS Right chin lesion, biopsy: Intradermal nevus. RUTHY:bronson 03/30/19 MICROSCOPIC DESCRIPTION Slides are reviewed. GROSS DESCRIPTION Received in fixative is one container labeled with the patient's name and designated right chin. The specimen consists of a round piece of carter-white skin measuring 0.4 x 0.4 x 0.2 cm. The entire specimen is submitted in one cassette. / SJ:rbonson 03/27/19 TC:1 CPT: 84812
[2019-03-26 14:10] VITALS: BMI 28.3
== END ==
PROVIDERS: Family Provider Physician Assistant; PCP Physician Assistant; Referring Provider Surgery; Visit Provider Surgery
DX: L98.9 Disorder of the skin and subcutaneous tissue, unspecified (principal)
CPT/HCPCS: 88305

== ENCOUNTER 2025-06-23 06:55 | Day surgery (SDC) | payer MEDICARE, OTHER, SELFPAY ==
[2025-06-23] VITALS (8 sets, daily range): BP systolic 97–127; BP diastolic 55–78; PULSE 57–78; RESP 16; TEMP 36–37.2; O2SAT 95–100; BMI 28.3
--- OUTSIDE RECORDS SUMMARY | 2025-06-23 07:01 | XMS RPT_ITS | CCD ---
Author Organization [facility] Care Team Providers Care Professional Organizer Name Role Phone Unavailable Primary Care Provider UnavailJOSELUIS Morales M.D. Attending Unavailable Unavailable Primary Care Provider Unavailabl e Unavailable Primary Care Provider Unavailabl e Maximilian ROWLEY, Maddy Perales Unavailable Maddy Yao PA-C Unavailable ENT Provider Unavailable Unavailable General Surgery Provider Unavailable Unavail able and Reconstructive Surgery, [place] [facility] Unavailable Eldon BREGER, Dr. Stout Unavailable Tracy BERGER, Dr. Rossi Unavailable [phone] Dermatology Provider Unavailable Unavailable Ana Rosa Das MD Unavailable Wendy HOME HEALTH CARE WORKER, Angela Unavailable Suzanne Min PA-C Unavailable Amadeo BERGER, Alvaro Ceballos Unavailable Day HOME HEALTH CARE WORKER, Jenna Unavailable Unavailable Flaco HOME HEALTH CARE WORKER, Jaqui E Unavailable Unavailable Ramón HOME HEALTH CARE WORKER, Desiree Unavailable Unavailable Rashida Voss Unavailable Unavailable Bipin RN, Rossi L Unavailable Unavail able Farzad HOME HEALTH CARE WORKER, Zarina Unavailable Unavailable King RILEY-C, Delta Iverson Unavailable Karlene BRADY, Livia Suárez Unavailable Unavaila ble Jose HOME HEALTH CARE WORKER, Filipe Unavailable Unavailable Margarita Colón RN Unavailable Pablo BRADY, Ambar Thomas Unavailable Unavailable Mutersbaugh HOME HEALTH CARE WORKER, Nichol K Unavailable Unavai javier Casiano, Rhona L Unavailable Sujatha HOME HEALTH CARE WORKER, Ana Rosa M Unavailable Unavailab Zarina Sauceda MA Unavailable Unavailable Vess HOME HEALTH CARE WORKER, Neilee L Unavailable Unavailable Wengerd HOME HEALTH CARE WORKER, Gisella Unavailable Unavailabl e Zamarge HOME HEALTH CARE WORKERLachelle Unavailable Unavailable Unavailable Unavailable Gonzalez HOME HEALTH CARE WORKERNuris Unavailable Unavailabl e BrayanChari Unavailable Unavailable Unavailable Unavailable Brayan Chari PITTS Unavailable Unavailable ALBERTA MARTINEZE Referring Unavailable Physical Therapy Provider Unavailable Unavai javier Molina MD, Dr. Rossi Unavailable Carmela Olivarez Unavailable Unavailabl e YAO, MADDY J Attending Unavailable YAO, MADDY J Consulting Unavailable YAO, MADDY J Primary Care Unavailable YAO, MADDY J Admitting Unavailable PROVIDER, UNKNOWN Consulting Unavailable YAO, MADDY J Attending Unavailable YAO, MADDY J Consulting Unavailable YAO, MADDY J Primary Care Unavailable YAO, MADDY J Admitting Unavailable PROVIDER, UNKNOWN Consulting Unavailable YAO, MADDY J Attending Unavailable YAO, MADDY J Consulting Unavailable YAO, MADDY J Primary Care Unavailable YAO, MADDY J Admitting Unavailable PROVIDER, UNKNOWN Consulting Unavailable YAO, MADDY J Consulting Unavailable YAO, MADDY J Primary Care Unavailable YAO, MADDY J Admitting Unavailable YAO, MADDY J Attending Unavailable PROVIDER, UNKNOWN Consulting Unavailable YAO, MADDY J Consulting Unavailable YAO, MADDY J Primary Care Unavailable YAO, MADDY J Admitting Unavailable YAO, MADDY J Attending Unavailable PROVIDER, UNKNOWN Consulting Unavailable Yao Betty BLOOMissa Primary Care Physician Maddy Corrales Referring Provider Kaylene BERGER, Dr. Cardenas Attending Physician [phone] Maddy Corrales Referring Unavailable Theresa Maurice Attending Unavailable Yao PA, Maddy Primary Care Unavailable Yao Maddy BLOOM Referring Unavailable Theresa Maurice Attending Unavailable Yao WOLF, Maddy Primary Care Unavailable Medications Current Medications Medication Drug Class(es) Dates Sig (Normalized) Sig (Original) ascorbic acid 1000 mg extended release oral tablet (1 source) Vitamin C Start: 07-21-2018 take 1 tablet by mouth once daily calcium carbonate 1250 mg oral tablet (1 source) Start: 07-21-2018 take 1 tablet by mouth once daily cholecalciferol 0.025 mg oral tablet (20 sources) Vitamin D Start: 07-21-2018 take 2 tablets by mouth once daily estrogens, conjugated (care home) 0.3 mg oral tablet (20 sources) Estrogen Start: 05-04-2025 Start: 09-04-2013 End: 04-14-2015 Start: 09-04-2013 End: 04-14-2015 PREMARIN, 0.625MG/GM (Vagina l Cream) ; 1 (one) gram(s) per vagina qhs for 2 weeks, then taper to 1/2 gram 1-3 times per week as tolerated for 0 days Quantity: 42.5 {Gram} Refills: 3 Ordered: 14-Apr-2015 JOSE ANTONIO Soler Start: 04-Sep-2013 End: 14-Apr-2015 Status: Inactive Premarin ; twice a month Comments: pt says 0.5 Comment on above: pt says 0.5 famotidine 20 mg oral tablet (20 sources) Histamine-2 Receptor Antagonist Start: 08-16-2024 Start: 07-08-2023 levothyroxine sodium 0.088 m g oral tablet (20 sources) l-Thyroxine Start: 08-16-2024 Start: 06-18-2024 Start: 07-08-2023 Synthroid 88 m cg tablet ; 1 Tablet daily for 0 days Quantity: 90 {Tablet} Refills: 3 Ordered: 08-Jul-2023 HALLEY Yao Start: 08-Jul-2023 Start: 07-15-2018 take 1 capsule by mo [facility] once daily nitrofurantoin, macrocrystal s 25 mg / nitrofurantoin, monohydrate 75 mg oral capsule (1 source) Nitrofuran Antibacterial Start: 03-17-2025 Start: 03-17-2025 pantoprazole 40 mg delayed release oral tablet (20 sources) Proton Pump Inhibitor Start: 07-15-2018 End: 05-04-2025 take 1 tablet by mouth once daily red yeast rice 600 mg oral capsule (11 sources) Start: 05-04-2025 take 1 capsule by mouth once daily sucralfate 1000 mg oral tablet (20 sources) Aluminum Complex Start: 05-04-2025 take 1 tablet by valdo once at bedtime Start: 11-09-2014 End: 04-14-2015 Start: 11-09-2014 End: 04-14-2015 take 1 tablet by mouth at bedtime CARAFATE, 1GM (Oral Tablet) ; 1 (one) Tablet AC and HS for 0 days Quantity: 40 {Tablet} Refills: 0 Ordered: 14-Apr-2015 JOSE ANTONIO Soler Start: 09-Nov-2014 End: 14-Apr-2015 Status: Inactive Vitamin K2 45 mcg capsule (1 source) Start: 05-04-2025 Completed/Discontinued Medications Medication Drug Class(es) Dates Sig (Normalized) Sig (Original) amoxicillin 500 mg oral tablet (20 sources) Penicillin-class Antibacterial Start: 02-20-2018 End: 02-23-2018 Start: 04-23-2011 End: 05-03-2011 amoxicillin 875 mg / clavula dagoberto 125 mg oral tablet (20 sources) Penicillin-class Antibacterial Start: 11-03-2021 End: 11-13-2021 Start: 11-03-2021 End: 11-13-2021 take 1 tablet by mouth twice daily Amoxicillin-Pot Clavulanate 875-125 MG Oral Tablet ; 1 (one) Tablet bid for 10 days Quantity: 20 {Tablet} Refills: 0 Ordered: 03-Nov-2021 HALLEY Yao Start: 03-Nov-2021 End: 13-Nov-2021 Status: Inactive Start: 10-10-2016 End: 10-20-2016 Start: 10-10-2016 End: 10-20-2016 take 1 tablet by mouth twice daily at mealtime Augmentin 875-125 MG Oral Tablet ; 1 Tab two times daily for 10 days Quantity: 20 {Tablet} Refills: 0 Ordered: 10-Oct-2016 CLAYTON Calle Start: 10-Oct-2016 End: 20-Oct-2016 Status: Inactive Comments: Take with food Start: 05-14-2011 End: 05-24-2011 Start: 05-14-2011 End: 05-24-2011 take 1 tablet by mouth twice daily AMOXICILLIN-POT CLAVULANATE, 875-125MG (Oral Tablet) ; 1 Tablet two times daily for 10 days Quantity: 20 {Tablet} Refills: 0 Ordered: 14-May-2011 MD Ana Rosa Das Start: 14-May-2011 End: 24-May-2011 Status: Inactive Comment on above: Take with food Azithromycin (20 sources) Macrolide Antimicrobial Start: 06-14-2010 End: 08-24-2010 Start: 06-14-2010 End: 08-24-2010 ZITHROMAX Z-ANTHONY, 250MG (Oral Tablet) ; 2 (two) Tabs day one, then one daily for 4 days for 0 days Quantity: 1 {Z-pack} Refills: 0 Ordered: 24-Aug-2010 MD Ana Rosa Das Start: 14-Jun-2010 End: 24-Aug-2010 Status: Inactive Black cohosh root extract (20 sources) Black Cohosh Sta tus: Inactive Calcium Carbonate / Cholecal ciferol / Vitamin K (20 sources) Vitamin D Viactiv ; 2 time s per week Status: Inactive cefuroxime 250 mg oral table t (20 sources) Cephalosporin Antibacterial Start: 03-25-2017 End: 04-01-2017 ciprofloxacin 250 mg oral ta blet (20 sources) Quinolone Antimicrobial Start: 02-27-2018 End: 03-04-2018 Start: 07-31-2012 End: 08-03-2012 Comment on above: take if needed clindamycin 300 mg oral capsule (1 source) Lincosamide Antibacterial Start: 03-26-20 End: 04-16-20 take 1 capsule by mouth three times daily Clindamycin Hcl 300 mg capsule Discontinued 300 mg PO THREE TIMES A DAY 9 March 26, 2019 12:00am April 16, 2019 1:59pm cyclobenzaprine hydrochloride 10 mg oral tablet (20 sources) Muscle Relaxant Start: 08-17-19 End: 08-24-19 Start: 11-21-2022 End: 11-28-2022 Start: 04-14-2015 End: 08-23-2015 Start: 04-14-2015 End: 08-23-2015 take 1 tablet by mouth every eight hours as needed CYCLOBENZAPRINE HCL, 10MG (Oral Tablet) ; 1 (one) Tablet every eight hours as needed for muscle spasms for 0 days Quantity: 15 {Tablet} Refills: 0 Ordered: 23-Aug-2015 JOSE ANTONIO Soler Start: 14-Apr-2015 End: 23-Aug-2015 Status: Inactive Comments: Medication taken as needed. may cause drowsiness Comment on above: Medication taken as needed. may cause drowsiness estradiol 0.1 mg/ml vaginal cream (20 sources) Estrogen Start: 07-15-2018 End: 05-04-2025 Estradiol (Estrace) 0.01 % (0.1 mg/gram) cream Discontinued 1 g VAGINAL TWICE A WEEK July 15, 2018 1:00am May 04, 2025 9:20am Estrace 0.5 MG O ral Tablet ; 3 x a week (0.5 MG) Status: Inactive Estrace 0.1 MG/G M Vaginal Cream ; 1 application twice a wk (0.1 MG/GM) Status: Inactive gabapentin 300 mg oral capsule (20 sources) Anti-epileptic Agent Start: 08-28-2011 End: 07-01-2012 take 1 capsule by mouth three times daily GABAPENTIN, 300MG (Oral Capsule) ; 1 Capsule three times daily for 0 days Quantity: 90 {Capsule} Refills: 5 Ordered: 28-Aug-2011 MD Ana Rosa Das Start: 28-Aug-2011 End: 01-Jul-2012 Status: Discontinued Comment on above: resumed 1 week ago hydrocortisone acetate 25 mg rectal suppository (20 sources) Corticosteroid Start: 12-18-2013 End: 12-24-2013 lansoprazole 30 mg delayed release oral capsule (20 sources) Proton Pump Inhibitor Start: 06-14-2014 End: 11-09-2014 lidocaine hydrochloride 20 mg/ml mucous membrane topical solution (20 sources) Antiarrhythmic, Amide Local Anesthetic Start: 03-26-2016 End: 06-07-2016 Multivitamin preparation (20 sources) take 1 tablet by mouth once marci y MULTIVITAMIN (PO Tab) ; 1 daily Status: Inactive [place]-3 Fatty Acids-Fish Oil 1 EACH capsule (1 source) Start: 07-21-2018 End: 05-04-2025 [place]-3 Fatty Acids-Fish Oil 1 EACH capsule Discontinued 1 NMA PO DAILY July 21, 2018 1:00am May 04, 2025 9:19am omeprazole 40 mg delayed release oral capsule (20 sources) Proton Pump Inhibitor Start: 10-11-2022 End: 07-08-2023 OMEPRAZOLE, 20MG (Oral Tablet Delayed Release) ; as needed (20 MG) Status: Inactive Comments: Medication taken as needed. Comment on above: Medication taken as needed. predniSONE 20 mg oral tablet (20 sources) Start: 05-09-2022 End: 08-24-2022 Comment on above: Take 3tabs qd for 3 days thenTake 2tabs qd for 3 days thenTake 1tab qd for 3 days thenTake 1/2tab qd for 4 days. raloxifene hydrochloride 60 mg oral tablet (20 sources) Estrogen Agonist/Antagonist sulfamethoxazole 800 mg / trimethoprim 160 mg oral tablet (20 sources) Dihydrofolate Reductase Inhibitor Antibacterial, Sulfonamide Antimicrobial Start: 03-30-2020 End: 04-02-2020 Start: 03-30-2020 End: 04-02-2020 take 1 tablet by mouth twice daily Sulfamethoxazole-Trimethoprim 800-160 MG Oral Tablet ; 1 (one) Tablet two times daily for 3 days Quantity: 6 {Tablet} Refills: 0 Ordered: 30-Mar-2020 HALLEY Min Start: 30-Mar-2020 End: 02-Apr-2020 Status: Inactive Start: 01-15-2018 End: 01-20-2018 Start: 01-15-2018 End: 01-20-2018 take 1 tablet by mouth twice daily Bactrim DS 800-160 MG Oral Tablet ; 1 Ta b two times daily for 5 days Quantity: 10 {Tablet} Refills: 0 Ordered: 15-Jan-2018 HALLEY Yao Start: 15-Jan-2018 End: 20-Jan-2018 Status: Inactive Start: 08-28-2013 End: 09-02-2013 Start: 08-28-2013 End: 09-02-2013 take 1 tablet by mouth twice daily SULFAMETHOXAZOLE-TMP DS, 800-160MG (Oral Tablet) ; 1 (one) Tablet two times daily for 5 days Quantity: 10 {Tablet} Refills: 0 Ordered: 28-Aug-2013 MD Ana Rosa Das Start: 28-Aug-2013 End: 02-Sep-2013 Status: Inactive Start: 08-24-2010 End: 08-29-2010 Start: 08-24-2010 End: 08-29-2010 take 1 tablet by mouth twice daily BACTRIM DS, 800-160MG (Oral Tablet) ; 1 Tablet two times daily for 5 days Quantity: 10 {Tablet} Refills: 0 Ordered: 24-Aug-2010 MD Ana Rosa Das Start: 24-Aug-2010 End: 29-Aug-2010 Status: Inactive triamcinolone acetonide 1 mg /ml topical cream (20 sources) Corticosteroid Start: 04-22-2017 End: 01-15-2018 Start: 04-22-2017 End: 01-15-2018 Triamcinolone Acetonide 0.1 % External Cream ; AAA Cream three times daily for up to 2 weeks for 0 days Quantity: 80 {Gram} Refills: 0 Ordered: 15-Jan-2018 DEVEN Olmedo Start: 22-Apr-2017 End: 15-Jan-2018 Status: Inactive Problems Active Problems Problem Classification Problem Date Documented Da te Episodic/Chronic Abdominal pain (20 sources) Epigastric discomfort; Translations: [Epigastric pain] 06-13-2018 Episodic Acute and chronic tonsillitis (20 sources) Cyst of tonsil; Translations: [Other chronic diseases of tonsils and adenoids] 01-29-2019 Chronic Allergic reactions (20 sources) Contact dermatitis and other eczema, unspecified cause 04-15-2012 Episodic Anal and rectal conditions (20 sources) Painful spasm of anus; Translations: [Anal spasm] 04-15-2012 Episodic Bacterial infection; unspecified site (20 sources) Bacteria present; Translations: [Streptococcus, group B, as the cause of diseases classified elsewhere] 03-30-2020 Episodic Cardiac dysrhythmias (20 sources) Cardiac arrhythmia; Translations: [Cardiac arrhythmia, unspecified] 07-08-2023 Chronic Coagulation and hemorrhagic disorders (20 sources) Petechiae; Translations: [Spontaneous ecchymoses] 07-08-2023 Episodic Disorders of lipid metabolism (20 sources) Hyperlipidemia; Translations: [Hyperlipidemia, unspecified] 06-01-2024 Chronic Esophageal disorders (20 sources) Gastroesophageal reflux disease; Translations: [Gastro-esophageal reflux disease without esophagitis] 07-08-2023 Chronic Comment on above: Endoscopy UTD. Gastritis and duodenitis (1 source) Duodenitis without bleeding; Translations: [Duodenitis without bleeding] Onset: Episodic Genitourinary symptoms and ill-defined conditions (20 sources) Dysuria; Translations: [Dysuria] 03-22-2017 Episodic Headache; including migraine (20 sources) Headache; Translations: [Headache] 07-08-2023 Episodic Hemorrhoids (20 sources) Residual hemorrhoidal skin tags; Translations: [Residual hemorrhoidal skin tags] 08-28-2011 Episodic Immunizations and screening for infectious disease (20 sources) Needs influenza immunization; Translations: [Encounter for immunization] 06-07-2016 Episodic Lymphadenitis (20 sources) Lymphadenopathy; Translations: [Enlarged lymph nodes, unspecified] 10-13-2015 Episodic Malaise and fatigue (3 sources) Other fatigue; Translations: [Other fatigue] Onset: 5 Episodic Menopausal disorders (20 sources) Atrophic vaginitis; Translations: [Postmenopausal atrophic vaginitis] 07-08-2023 Chronic Nausea and vomiting (2 sources) Nausea; Translations: [Nausea] Onset: 5 Episodic Neoplasms of unspecified nature or uncertain behavior (1 source) Neoplasm of skin of chin; Translations: [Neoplasm of unspecified behavior of bone, soft tissue, and skin] 03-26-2019 Episodic Comment on above: 5 mm lesion right ch in Nonspecific chest pain (20 sources) Chest wall pain; Translations: [Other chest pain] 07-08-2023 Episodic Nutritional deficiencies (20 sources) Vitamin D deficiency; Translations: [Vitamin D deficiency, unspecified] 07-08-2023 Chronic Osteoporosis (20 sources) Osteoporosis; Translations: [Age-related osteoporosis without current pathological fracture] 07-08-2023 Chronic Other aftercare (20 sources) Long-term (current) use of other medications 05-14-2011 Episodic Other and unspecified benign neoplasm (1 source) Dermal cellular nevus ; Translations: [Other benign neoplasm of skin of unspecified part of face] 04-18-2019 Episodic Comment on above: 5 mm intradermal nev us chin Other bone disease and musculoskeletal deformities (20 sources) Osteopenia; Translations: [Other specified disorders of bone density and structure, unspecified site] 03-30-2020 Episodic Comment on above: started Boniva this past winter and didn't tolerate; now on Evista Other connective tissue disease (20 sources) Muscle spasm of cervical muscle of neck; Translations: [Other muscle spasm] 07-08-2023 Episodic Other connective tissue disease (20 sources) Pain in upper limb; Translations: [Pain in right arm] 08-23-2015 Episodic Other endocrine disorders (20 sources) Disorder of parathyroid gland; Translations: [Disorder of parathyroid gland, unspecified] 03-30-2020 Chronic Other gastrointestinal disorders (20 sources) Constipation; Translations: [Constipation, unspecified] 07-01-2012 Episodic Other liver diseases (20 sources) Elevated liver enzymes level; Translations: [Abnormal levels of other serum enzymes] 07-08-2023 Episodic Other lower respiratory disease (20 sources) Rib pain; Translations: [Pleurodynia] 08-17-2024 Episodic Other non-traumatic joint disorders (20 sources) Pain in left knee; Translations: [Pain in joint, lower leg] 08-23-2015 Episodic Other non-traumatic joint disorders (20 sources) Pain in right knee; Translations: [Pain in joint, lower leg] 07-22-2024 Episodic Other nutritional; endocrine; and metabolic disorders (20 sources) Overweight in adulthood with body mass index of 25 or more but less than 30; Translations: [Body mass index (BMI) 29.0-29.9, adult] 01-15-2018 Episodic Other screening for suspected conditions (not mental disorders or infectious disease) (20 sources) Patient encounter status; Translations: [Encounter for other screening for malignant neoplasm of breast] Onset: 05-07-2022 Episodic Other skin disorders (20 sources) Lesion of skin of face; Translations: [Disorder of the skin and subcutaneous tissue, unspecified] 03-09-2020 Episodic Other skin disorders (20 sources) Mass of skin of right lower limb; Translations: [Disorder of the skin and subcutaneous tissue, unspecified] 03-30-2020 Episodic Other skin disorders (20 sources) Skin lesion; Translations: [Disorder of the skin and subcutaneous tissue, unspecified] 05-24-2022 Episodic Other skin disorders (20 sources) Actinic keratosis; Translations: [Actinic keratosis] 02-27-2018 Episodic Other skin disorders (20 sources) Skin tag; Translations: [Other hypertrophic disorders of the skin] 08-23-2015 Episodic Other skin disorders (20 sources) Papule of skin; Translations: [Other skin changes] 08-23-2015 Episodic Other upper respiratory disease (20 sources) Hoarse; Translations: [Dysphonia] 03-30-2020 Episodic Other upper respiratory disease (20 sources) Pain of nose; Translations: [Other specified disorders of nose and nasal sinuses] 10-10-2016 Episodic Other upper respiratory infections (20 sources) Pharyngitis; Translations: [Acute pharyngitis, unspecified] 03-26-2016 Episodic Residual codes; unclassified (20 sources) Throat symptom; Translations: [Other general symptoms and signs] 11-03-2021 Episodic Residual codes; unclassified (20 sources) Influenza vaccination declined; Translations: [Immunization not carried out because of patient refusal] 05-31-2018 Episodic Residual codes; unclassified (20 sources) Other specified conditions influencing health status 12-11-2012 Episodic Spondylosis; intervertebral disc disorders; other back problems (20 sources) Low back pain; Translations: [Radiculopathy, lumbar region] 07-08-2023 Episodic Sprains and strains (20 sources) Strain of neck muscle; Translations: [Strain of muscle, fascia and tendon at neck level, initial encounter] 01-28-2019 Episodic Thyroid disorders (20 sources) Hypothyroidism; Translations: [Other specified hypothyroidism] 06-01-2024 Chronic Unclassified (3 sources) Number of Children 07-08-2023 Comment on above: 2. Unclassified (3 sources) Number of Pregnancies 07-08-2023 Comment on above: 2. Unclassified (3 sources) Vaginal deliveries 07-08-2023 Comment on above: 2. Unclassified (1 source) Well adult female - The patient feels well with no complaints, has good energy level and is sleeping well. The first day of the last menstrual period was : (10 yrs ago- around 53 yrs of age). The current method of contraception is: partner had vasectomy. The patient has a balanced diet and takes supplemental vitamins. The patient exercises 3 - 4 times per week. The patient sleeps 6 hours per night. 03-10-2020 Unclassified (1 source) [ADDITIONAL REASON] Follow up for multiple chronic conditions - The patient is here for follow-up of GERD (well), hyperlipidemia, hypothyroidism and other condition(s) (Vitamin D deficiency, porosis, elevated liver enzymes). The patient always takes the prescribed medications. No side effects noted. The patient engages in regular exercise program 3-5 times per week. The patient's dietary compliance is fairly good usually adhering to recommendations. The patient states that breathing effort is stable, there is no recent angina or dyspnea, there are no vision changes or weakness (Last eye appointment was 2018.), pain is generally stable (none), sleep patterns have improved and they do not have headaches. Note for "Multiple chronic conditions follow-up": No concerns today. 03-10-2020 Unclassified (3 sources) dry and scratchy throat - Patient is here with complaints that she has a dry and scratchy throat. Said she was sick (cold symptoms about a month ago x 2-3 days) and got better but then started with the scratchy throat. Feels like she has to clear her throat all the time now. No fever or cough. No medications taken. Worse after talks a lot. Hoarseness. Some PND. No pain but raw feeling. No trouble swallowing. No heartburn. She also wants to discuss a breast reduction referral. Chronic neck pain and questioning if it could be related. Has been going to chiro which helps some. Has never done PT. 04-14-2019 Unclassified (3 sources) Follow up for multiple chronic conditions - The patient is here for follow-up of GERD, hyperlipidemia, hypothyroidism and other condition(s) (vit D deficiency, osteoporosis, elevated liver enzymes). The patient always takes the prescribed medications. No side effects noted. The patient has an active lifestyle but no regular exercise program. The patient's dietary compliance is fairly good usually adhering to recommendations. The patient states that breathing effort is stable, there is no recent angina or dyspnea, there are no vision changes or weakness (last eye appointment about 2 yrs ago.), pain is generally stable (none), they are still having trouble sleeping (depends on day) and they do not have headaches. Note for "Multiple chronic conditions follow-up": Last office visit 10/23/18.Has a spot on right lower leg that needs checked. 01-29-2019 Unclassified (3 sources) Abdominal pain - The onset of the abdominal pain has been sudden and has been occurring in a persistent pattern for 1 week. The course has been constant. The pain is described as a moderate dull ache. The pain is located in the epigastrium and does not radiate. The symptoms have no aggravating factors but are relieved by antacids (has taken occasional pepcid which does help temporarily). The symptoms have been associated with nausea, while the symptoms have not been associated with constipation, diarrhea or vomiting. Note for "Abdominal pain": Patient states she suffered from acid reflux previously and was on Omeprazole but has been off of that since February.She had labs done by endocrinology in early May and liver enzymes were elevated. They had her repeat them last week - they had improved and only one was still elevated. They ordered a liver US to be done next week.She has been burping some. Does sometimes feel something in her thoat.Had changed to ketogenic diet. 05-31-2018 Unclassified (3 sources) UTI Chronic/Recurrent - The last clinic visit was 2 week(s) ago. Management changes made at the last visit include adding medication. The patient is not currently being treated for this problem. Symptoms include dysuria, but do not include abdominal pain or back pain. Associated symptoms do not include fever, chills or nausea. Note for UTI Chronic/Recurrent": Pt was seen 2wks ago and put on antibiotics. Culture was negative, she states sx never really went away. Currently notes two set of sx: burning tingling after urination; then at other times feels like there is something there (pressure). Had been improved for a few days but now is recurring, not as bad as last visit. Better at night. Doesn't keep her awake. Has some vaginal dryness and some perineal itching (some relief with vagisil). No discharge. 09-07-2010 Unclassified (2 sources) Follow up for multiple chronic conditions - The patient is here for follow-up of GERD (well), hyperlipidemia, hypothyroidism and other condition(s) (Vitamin D deficiency, porosis, elevated liver enzymes). The patient always takes the prescribed medications. No side effects noted. The patient engages in regular exercise program 3-5 times per week. The patient's dietary compliance is fairly good usually adhering to recommendations. The patient states that breathing effort is stable, there is no recent angina or dyspnea, there are no vision changes or weakness (Last eye appointment was 2018.), pain is generally stable (none), sleep patterns have improved and they do not have headaches. Note for "Multiple chronic conditions follow-up": No concerns today. 03-10-2020 Unclassified (2 sources) [ADDITIONAL REASON] Well adult female - The patient feels well with no complaints, has good energy level and is sleeping well. The first day of the last menstrual period was : (10 yrs ago- around 53 yrs of age). The current method of contraception is: partner had vasectomy. The patient has a balanced diet and takes supplemental vitamins. The patient exercises 3 - 4 times per week. The patient sleeps 6 hours per night. 03-10-2020 Unclassified (20 sources) 07-08-2023 Unclassified (20 sources) 07-08-2023 Unclassified (20 sources) 07-08-2023 Urinary tract infections (20 sources) Urinary tract infectious disease; Translations: [Urinary tract infection, site not specified] 03-30-2020 Episodic Past or Other Problems Problem Classification Problem Date Documented Date Episodic/Chronic Unclassified (3 sources) MCR Well Adult - In general the patient feels well with minor complaints (pt has been having trouble with her eyes, is seeing eye doctor for that and is having some headaches - twice a month just above her eyes - no other symptoms with it; dull and doesn't require medication to resolve), has decreased energy level (has had a lot of stress this year) and is sleeping well. The patient has a balanced diet and takes supplemental vitamins. The patient exercises 3 - 4 times per week and sleeps 6 hours per night. The patient denies having trouble with bathing, dressing/grooming, toileting, preparing meals and ambulating. The patient denies having trouble with grocery shopping, driving, use of telephone, housework, laundry, preparing/taking medications and finances. 07-08-2023 Unclassified (3 sources) Breast pain - The breast pain is in the left breast. The onset of the breast pain has been acute and has been occurring in a persistent pattern for 2 weeks. The course has been increasing. The breast pain is described as moderate. Note for "Breast pain": Pt felt it when she was laying on her stomach at chiro to get adjusted, now it is a constant ache.Has been going to the chiropractor and then one time she noticed she had the pain when she leaned forward.Feels it all the time but is worse when she hiccups, when lying flat on back and goes to sit up, if takes a really deep breath, and when lying on chest.Woke up in the middle of the night coughing last night and almost went to the ER. Doesn't have a cold. No exertional symptoms.No SOB or dizziness.Did ibuprofen and heat x 4 days last week - no improvement with that.Did push mow the yard twice yesterday.Mammograms are UTD - last was March 2022 and normal per patient. 12-21-2022 Unclassified (3 sources) Neck pain - The onset of the neck pain has been acute and has been occurring in a persistent pattern for 4 days. The course has been constant. The neck pain is described as a moderate dull aching and shooting (when she turns her head). The neck pain is described as being located in the right lateral neck and left lateral neck and radiating no where. The pain is relieved by medication. Associated features include neck stiffness. There have been no previous diagnostic tests. There have been no previous evaluations. Note for "Neck pain": No improvement. Woke up with it on Saturday morning. Alternates between left and right side. Has tried ibuprofen and a pain cream. Doing stretches. Did go to chiropractor but hasn't since this started. 11-21-2022 Unclassified (3 sources) Re check throat - Saw RICHARD in August. Was changed from pepcid to PPI and symptoms resolved at that time when on the PPI --- although after 2 weeks she did start to have some mild symptoms again. Did take the med x 4 weeks and then started taking pepcid again. Can go a couple of days without symptoms. Taking pepcid BID recently. + late night eating. Has been under a lot of stress the past 3 months. C/O "thickness" feeling in back of throat that comes and goes. Lots of throat clearing. No c/o burning in throat or feeling palpitations. No exertional or other symptoms.Wants rash checked on chest, area is red/purple in color, unraised. Just noticed it this morning. 10-11-2022 Unclassified (3 sources) Chest pain - The onset of the pain has been acute and has been occurring in a recurrent pattern for 3 weeks (Was previously taking Famotidine as needed and was doing well. Her has had multiple surgeries lately and she has been under more stress lately, she has not been eating as well as usual. Around , she started to have epigastric pain, this went away but then she ate pasta with red sauce and drank wine and the pain returned and she has the pain for a few days. She will have the epigastric pain for a few days then will get better and come back. Since , she has been taking the famotidine two times daily and she does not feel this medication is helping. She fell about 2 months ago, has taken more ibuprofen (took for about 4-5 days) and Aleve more than she usually does.). The pain is described as a mild to moderate burning (at times, she will feel like something is stuck in her throat, also her throat will feel thick). The pain is described as being located in the epigastrium and does not radiate. The pain is precipitated by eating (spicy or acidic foods). The symptoms are relieved by nothing (did take Tums but did not help when she was having the pain). The symptoms have been associated with nausea, but have not been associated with abdominal pain, blurred vision, breast pain, cough, dizziness, dyspnea, fever, headache, neck pain, palpitations, shoulder pain, syncope or vomiting. 08-24-2022 Unclassified (3 sources) MCR Well Adult - In general the patient feels well with no complaints, has good energy level and is sleeping well. The patient has a balanced diet and takes supplemental vitamins. The patient does not exercise and sleeps 6 hours per night. The patient denies having trouble with bathing, dressing/grooming, toileting, preparing meals and ambulating. The patient denies having trouble with grocery shopping, driving, use of telephone, housework, laundry, preparing/taking medications and finances. Note for "MCR Well Adult": Back is doing much better. 05-24-2022 Unclassified (3 sources) Back pain - The onset of the back pain has been acute and has been occurring in a persistent pattern for 2 weeks. The pain is characterized as a dull ache and stabbing. The pain is located in the lower back and does not radiate. There are no precipitating factors. Note for "Back pain": Pt will sometimes get tingling in her right ankle - intermittent.No history of injury - was walking and took a step and felt a pull in right low back.Hasn't done any consistent treatment but has done some ice/heat application and took ibuprofen x 2 days. Has been applying oils. 05-07-2022 Unclassified (3 sources) UTI - Symptoms include dysuria. Onset was gradual 1 week(s) ago. There is no known event that preceded symptom onset. The symptoms occur constantly. The patient describes this as moderate in severity and worsening. Associated symptoms do not include fever or nausea. Note for "UTI": Burning is more after urinating. Took AZO which has been helping.Does have some suprapubic bloating/pain.BMs have been regular - maybe a little softer. Some urine odor but no blood or cloudiness.No vaginal discharge or sores. 11-03-2021 Unclassified (3 sources) bump on tonsil - Pt has a bump on her left tonsil that she noticed 2 weeks ago. Pt denies any pain.No recent illness.Taking pepcid regularly and no heartburn. 10-20-2021 Unclassified (3 sources) Well adult female - The patient feels well with no complaints, has good energy level and is sleeping poorly (not always; trouble falling asleep and staying asleep). The patient has a balanced diet. The patient exercises 3 - 4 times per week (walking a few times a week). The patient sleeps 5 (4-5) hours per night. Note for "Well adult female": No concerns today. 04-21-2021 Unclassified (3 sources) buttocks pain - pt fell January 26 and she went to put the mower away and tripped over something laying on the ground and fell backwards, and landed on her lower back/ buttocks areanot bruised, not swollendoes not bug her when laying downachy pain, and when it hits a certain spot it radiates out to her whole buttocks-- does not go up back or down legs bending is the worst, when she goes forward it is not bad, but when she comes back up it hurtshad tried ice and heat and ibuprofen--this helped someDenies any numbness, tingling, weakness, or incontinence. 02-14-2021 Unclassified (3 sources) UTI - Symptoms include dysuria, urinary frequency, urinary urgency and abdominal pain, but do not include hematuria, dark urine, flank pain or back pain. The pain is located in the suprapubic area. There is no radiation. The patient describes the pain as aching. Onset was 6 day(s) ago. There is no known event that preceded symptom onset. The symptoms occur constantly. The patient describes this as worsening. Symptoms are not relieved by phenazopyridine, urinary anesthetics or cranberry juice. Associated symptoms do not include fever, chills, nausea, vomiting, urinary incontinence, urinary retention, urinary hesitancy or vaginal discharge. Note for "UTI": Patient states that she hasn't had a UTI in the past few years, but she has been taking baths lately and she knows that she gets UTIs after taking baths. She describes a burning at the end of urination. 03-30-2020 Unclassified (3 sources) lesion removal - Patient is here to have a lesion removed on right posterior leg that has been for 1 month; persistent. Not painful or itchy. 02-05-2019 Unclassified (3 sources) Back pain - The onset of the back pain has been gradual and has been occurring in an intermittent pattern for 2 weeks. The course has been recurrent. The pain is characterized as a dull ache. The pain is located in the lower back (right) and does not radiate. There are no precipitating factors. The symptoms are aggravated by prolonged sitting and are relieved by stretching. There has been no associated abdominal pain, dysuria or fever. Note for "Back pain": Woke up with the pain one morning.No history of injury. Notices the pain with movements - feels like a pulling.No leg pain, numbness, tingling. Normal bowel/bladder function. Is wondering if she could come here instead for manage for thyroid condition, etc rather than going to [facility]. Saw general surgeon - EGD done and was started on protonix 40mg. Did well on it - has been out for a bit and doing well - has taken some OTC nexium/prilosec here and there. 10-23-2018 Unclassified (3 sources) Well adult female - The patient feels well with minor complaints (still is having some buring and tingling from her uti; finished cipro (3 days worth)), has good energy level and is sleeping well. The first day of the last menstrual period was : (2011). The patient has a balanced diet and takes supplemental vitamins. The patient does not exercise. The patient sleeps 7 hours per night. 02-27-2018 Unclassified (3 sources) UTI - Symptoms include dysuria, urinary frequency and urinary urgency, but do not include hematuria, abdominal pain or back pain. Onset was sudden 1 day(s) ago. The symptoms occur constantly. The patient describes this as unchanged. Associated symptoms do not include fever, chills, nausea or vomiting. Note for "UTI": Was trying a natural product - uline.Has been taking a probiotic and using premarin regularly since end of January.Was treated in January for UTI - symptoms resolved with augmentin. 02-20-2018 Unclassified (3 sources) UTI - Symptoms include dysuria (after she urinates), urinary frequency and urinary urgency, but do not include hematuria, abdominal pain or back pain. There is no assiciated pain. Onset was gradual (week and half; not improving; tried OTC AZO). The symptoms occur constantly. The patient describes this as moderate in severity and unchanged. Symptoms are not relieved by phenazopyridine. Associated symptoms do not include fever, chills, nausea or vomiting. 01-15-2018 Unclassified (3 sources) New skin lesions - The onset of the skin lesions has been rapid and they have been occurring for 1 week (first noticed 1 week ago, unsure on when it started). The skin lesions have been unchanging in size. The skin lesions are characterized as red, brown and raised above the skin and are located in the lower extremity (posterior left leg (calf)). There has been associated pain (a little sore at times), while there has been no associated chills, fever or itching. 04-04-2017 Unclassified (3 sources) UTI - Symptoms include dysuria, but do not include urinary frequency, urinary urgency, abdominal pain or back pain. Onset was gradual 2 week(s) ago. The symptoms occur constantly (hurts in area of urethra all the time but is worse around urination). The patient describes this as unchanged. Symptoms are not relieved by phenazopyridine. Associated symptoms do not include fever, chills, nausea or vomiting. Note for "UTI": Did see [facility] last week and was told there was some mild erythema around the urethra but no other abnormalities. Apparently testing for yeast, etc was normal. She was given premarin sample and then rx for estrace which she was been using - no improvement noted yet with this. Had been taking baths a lot so quit doing that yesterday. 03-22-2017 Unclassified (3 sources) Facial pain - The facial pain is located in the right nasal region. The pain radiates to the right forehead (headaches). Symptoms are exacerbated by direct pressure. Symptoms include facial pain. The patient describes the pain as dull. Onset was gradual 1 week(s) ago. The symptoms occur constantly. The patient describes this as moderate in severity and worsening. Associated symptoms include headaches. Note for "Facial pain": Reviewed by ARTUR. 10-10-2016 Unclassified (3 sources) Neck pain - The onset of the neck pain has been gradual (was seen October of this year for a neck strain. Her neck pain resolved and returned about 6 weeks ago. Is not increasing in frequency. This time appears to have started after working in her garden. ) and has been occurring in an intermittent pattern for 6 weeks. The course has been constant. The neck pain is described as a catching (when turning her neck sometimes, will feel it pull) and dull aching. The neck pain is described as being located in the right lateral neck (will radiate down her right shoulder blade, does not happen very often). Aggravating factors include rotating to the left and flexion. The pain is relieved by medication (ibuprofen). There are no associated features neck stiffness. There have been no previous diagnostic tests. There has been no previous physical therapy. There has been no previous neck surgery. Note for "Neck pain": Reports that she had a terrible headache yesterday when she woke up as well as the neck pain and the headache did not resolve until 6pm last night. Is fasting this morning and would like to have bloodwork done. Reviewed by ARTUR. 06-07-2016 Unclassified (3 sources) Cold Symptoms - Symptoms include nasal congestion, sore throat and scratchy throat, but do not include ear pain, dry cough or fever. The onset was sudden 1 day(s) ago. The symptoms occur constantly. The patient describes this as moderate in severity and worsening. The patient is not currently being treated for this problem. Risk factors do not include child in daycare or smoking. The patient has not been exposed to an individual with a cough, an individual with an upper respiratory infection, an individual with similar symptoms or an individual with strep. Note for Upper respiratory infection": leaving for [place] tomorrow morning and wants to be feeling better before then. Reviewed by ARTUR. 03-26-2016 Unclassified (3 sources) Neck pain - The neck pain has been occurring for 2 weeks. Note for "Neck pain": -Neck stiffness with no known cause. She notes a "knot" on the right side of the neck for a week. Started after she started lifiting weights. It is slightly improved today. Does also have cold symptoms (these started after she noticed area); she also had some skin tags removed from her right posterior neck a few weeks ago and they were mildly inflammed as they healed. 10-13-2015 Unclassified (3 sources) Complaint - Patient is here today with multiple complaints. Would like to have two skin tags removed on posterior neck. Is also having pain of her left knee that is describing as being a sharp pain. Been occurring for about 4-5 months. Will only have the pain when kneeling on both knees then she sits back on legs (pain pulls medially). Is not in this position much. No recent or remote trauma. No AM stiffness.Is having pain of the right upper arm between her elbow and shoulder. Occurs when lifting, pushing, pulling or raising her arm up. Been occurring for about 4-5 months. Is a sharp pain. Tried applying Ice that did not help. Applied a Muscle cream that did help some to relieve. No numbness, tingling, or burning. 08-23-2015 Unclassified (3 sources) Back pain - The onset of the back pain has been sudden and has been occurring in an intermittent pattern for 6 days. The course has been constant. The pain is characterized as stabbing (sharp). The pain is located in the lower back (on the left side and sometimes will be in the middle of the lower back) and does not radiate. There are no precipitating factors. The symptoms are aggravated by weight lifting (and when turning, getting up from a chair or a sitting position) and are relieved by ice (relieved some). There has been no associated back stiffness, flank pain, hip pain, history of back surgery, history of disc prolapse, leg weakness, paresthesias in leg or trauma. Note for "Back pain": Has been taking ibprofen 600mg every 6 hours, applied aspercreme, and a pain patch that did not help relieve the pain. Denies having any injury to cause the back pain. First noticed a slight pain in her back. Back pain worsened with lifting with weight (putting boxes away at home).No radicular painIs able to function but is slower at her tasks and tries to protect back. No night pain. Has had flares in the past but none that persist like this. 04-14-2015 Unclassified (3 sources) Cold Symptoms - Symptoms include nasal congestion, runny nose, ear fullness, sore throat (left side on occasion.), hoarseness, dry cough and headache, but do not include ear pain, fever, chills or general malaise. The onset was sudden 4 day(s) ago. The symptoms occur constantly. The patient describes this as moderate in severity and improving. The patient is not currently being treated for this problem. Note for Upper respiratory infection": Also complains of epigastric pain and nausea. Was awake most of the night due to pain.She has had colonosocpy, EGD and GB out within the past 6 months. She is on 40mg omperazole 11-09-2014 Unclassified (3 sources) follow up gerd - Patient is currently taking lansoprazole 30mg daily. She states that this has helped her pain/symptoms immensely (estimates >50% improvement). She still has some pain in her middle chest, right chest and middle of her back. Not exertional. Exercises regularly without symptoms. It comes and goes, at different places at different times. She does not have left sided chest pain, no headache, no shortness of breath. Sometimes has a feeling of something being in her throat when she eats. No dysphagia, altho at times feels food going down). No hoarseness. 06-14-2014 Unclassified (3 sources) Abdominal pain - The onset of the abdominal pain has been gradual and has been occurring in a persistent pattern for 3 weeks. The course has been increasing. The pain is described as a moderate burning, dull ache and pressure sensation. The pain is located in the epigastrium and radiates to the back. The symptoms have no relieving factors. Note for "Abdominal pain": -Started herself on OTC Zantac. It was not effective and when she noted a cough and more burning, she bought Nexium. She has been on Nexium for 14 days and is not improving. Eating does not change symptoms. She did recently start a diet plan that includes drinking water with lemon juice. Occ uses NSAIDs but has not been taking regularly.Symptoms startes as heartburn but this is worse. Has little appetite this AM. Normal BMs. No dysphagiaHas been to ER twice in past for similar sx; one ER visit for GERD and the other was deemed anxiety; has been under stress and wonders if that could contribute; has had normal cardiac stress test in the last 3 years.Willing to have flu vaccine. 05-11-2014 Unclassified (3 sources) Heartburn - The onset of the heartburn has been acute and has been occurring in an intermittent pattern for months. The course has been recurrent. The heartburn is characterized as burning and pain. The heartburn is described as being located in the epigastrium and xiphisternum. The heartburn does not radiate. The symptoms are aggravated by large meals, lying down and stooping. The symptoms have been associated with abdominal pain, flatulence and indigestion. Note for "Heartburn": Patient has not had any nausea or vomiting, no fever. She has tried prilosec and zantac. Zantac seems to help the best, but as soon as she stops taking it, the symptoms return. Notes a sour stomach and then occ GERD. Not using NSAIDs regularly. No melena or hematochezia. Appetite is ok but she only really wants bland CHO foods that don't upset her stomach. Sx started when she tried to eat a higher protein diet. Occ feels food go all the way down; no dysphagia. 10-02-2013 Unclassified (3 sources) continued symptoms - Patient was here on 08/28/13 and treated with bactrim for acute cystitis. She finished antibiotic and is still having symptoms. She complains of a tingling sensation, not really pain (vaginal area). No dysuria, frequency or urgency. No vagina d/c or itching. No fever, no abdominal pain or back pain. Symtoms occur randomly thru the day.No culture done for recent UTI. 09-04-2013 Unclassified (3 sources) UTI - Symptoms include dysuria (tingling and pressure when has to pee), urinary frequency and abdominal pain (describes as a pressure), but do not include urinary urgency, hematuria or back pain. The pain is located in the suprapubic area. There is no radiation. Onset was sudden 5 day(s) ago (started saturday, was better saturday, returned Sat and has had ever since). There is no known event that preceded symptom onset. The symptoms occur constantly. The patient describes this as moderate in severity and worsening. Symptoms are relieved by urinary anesthetics. Associated symptoms do not include fever, chills, nausea or vomiting. Note for "UTI": tried azo with some relief 08-28-2013 Unclassified (3 sources) Leg swelling - The onset of the leg swelling has been gradual and has been occurring in a persistent pattern for 1 month. The course has been constant. The leg swelling is described as moderate. The leg swelling is described as being located in the right calf. The symptoms have been associated with pain (dull ache), while the symptoms have not been associated with erythema or decreased range of motion. Note for "Leg swelling": -Reports similar swelling last fall that resolved spontaneously.Descri bes a tingly tight feeling in calf; intermittent and not progressing; often worse as day goes on (on feet). Did travel by plane to [facility] a few weeks ago (2 hour flight) but had sx prior to that.Is using a natural estrogen product prescribed per a physician in [place] but was on this prior to sx starting.Has been doing some exercises recently (including jumping)Reports remote h/o blood clot in when injured her leg but does not remember details of how it was treated. 12-11-2012 Unclassified (3 sources) several things - -1) In August planning mission trip to [facility]. Plans to stay in hot. Asking about possibility of taking cipro along incase of food poisoning. Asked about tdap, she had one in 2010. For mission trip, will be feeding kids and playing/interacting with kids. Will also meet a child they have sponsored.2) Has some new onset low back pain on left side. Planning to travel out of state tomorrow and wants to know what to expect. Started 4 days ago; worse with moving or sitting on alejandro surface. No dysuria or urinary frequency/urgency. No radiation of pain. No apparent trigger or injury. Tried ibuprofen. Symptoms are worse with position changes.3) Asking for flu vaccine. 07-31-2012 Unclassified (3 sources) Constipation - The onset of the constipation has been gradual and has been occurring in a persistent pattern for 2 weeks. The amount of stool per bowel movement is small (hard stool). The frequency of bowel movements has been 1 per day. Note for "Constipation": Took one laxative and one stool softener.No change in diet or exercise pattern. Did start melatonin recently. Was recently taking a magnesium supplement; limits calcium use since it tends to constipate her. Was taking Tums more recently and eating more bananas. 07-01-2012 Unclassified (3 sources) hemorrhoids - Patient states for the last several months she has noticed that she has hemorrhoids. Has tag that she feels. They are not painful and are not bleeding but they itch terribly. She has tried preparation h, and several other otc remedies but nothing really seems to help. Bowels are moving okay, did also try otc oral witch richardson, which didn't really help either. States sometimes she will go several days and have no sx and then they will return. Also has perineal itching as well. 04-15-2012 Unclassified (3 sources) Follow up consultation - The patient is here to follow-up after Emergency Room/Urgent Care (Was seen in ER for upper chest heaviness she had since Saturday. She did start a new job, has been under alot of stress and had been trying to just tell herself it was that. Some shortness of breath noted. Was given 4 baby aspirin, 2mg IV morphine and 1 sublingual nitroglycerin which completely alleviated her sx. Then was transferred to [place] via squad. At [place] had cxr, stress test and bloodwork all of which was normal. ) on : (10/20/11). Current symptoms include chest pain (pt states that she is feeling much better than when she went into the ER. She still has some chest discomfort, states it is completely midline and that it almost feels like a heaviness rather than a pain. Has the symptoms more than she doesn't but not exertional. Started when she started her new job last week, she subsequently resigned. Has had GERD before and tried some antacid helped lower pain but she continued to have chest pressure.). 10-23-2011 Unclassified (3 sources) Cold Symptoms - Symptoms include nasal congestion (watery drainage), sore throat (worse in evenings, some PND), general malaise, headache and facial pain (bilateral), but do not include ear pain, dry cough or fever. The onset was sudden 5 day(s) ago. The symptoms occur constantly. The patient describes this as moderate in severity and worsening. Current treatment includes non-prescription cold medication. Risk factors do not include smoking. The patient has not been exposed to an individual with similar symptoms. 10-12-2011 Unclassified (3 sources) f/u urinary frequency - Pt last seen 08/28/11 and put on gabapentin 300mg for her rectal pain and frequency of stools. She states that the sx are not completely gone and still flare sometimes but overall is much better. Symptoms only noticeable if sitting for prolonged period. Did have some dizziness after initially on gabapentin but that has resolved. Normal BMs. 09-25-2011 Unclassified (3 sources) rectal pain - History of nerve injury 5 or 6 years ago that happened after landing hard on a saddle while riding a horse. She had testing done and saw neurosurgeon who gave her gabapentin. That helped for awhile. She was seen here in for pain and had a course of gabapentin which seemed to help pain resolve. She had not taken anything for about 2 years. Approximately 4 weeks ago, pain began to return (after long car trip). She had one bottle of gabapentin left from old rx and began taking it again. It is not as effective as it was the other times. She would like to confirm that she is having the same problem again; symptoms are exactly the same (rectal pressure and fecal urgency, no pain yet but has progressed to that in past). 08-28-2011 Unclassified (3 sources) Well Adult, female - The patient feels well with minor complaints (tightness in her right leg (now resolved) and an itchy spot on her back that started [place] being in the [place]. Wonders if its ok to use premarin as needed with the evista? ), has good energy level and is sleeping well. Most recent Pap smear: : (03/2010). The patient has a balanced diet and takes no supplemental vitamins & iron. Patient exercises weekly. 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 05-08-2011 Unclassified (3 sources) Cold Symptoms - Symptoms include nasal congestion, purulent discharge, sore throat, dry cough (slight in the last day), general malaise, headache and facial pain (especially over her teeth, bilateral), but do not include ear pain or fever. The onset was sudden 4 day(s) ago. The patient describes this as moderate in severity and worsening. Current treatment includes non-prescription cold medication, NSAIDs and saline nasal spray/drops. The patient has not been exposed to an individual with similar symptoms. Medical History dose not include seasonal allergies or recurrent sinusitis. 04-23-2011 Unclassified (3 sources) UTI - Symptoms include dysuria. The pain is located in the suprapubic area. The patient describes the pain as dull. Onset was sudden 4 day(s) ago. The patient describes this as unchanged (intermittent). Associated symptoms do not include fever or chills. Note for "UTI": also has a skin tag on her back she wants checked 08-24-2010 Unclassified (3 sources) Cold Symptoms - Symptoms include fever (Saturday night 100.2), chills, general malaise, headache and facial pain, but do not include nasal congestion. The onset was sudden 3 day(s) ago. The symptoms occur constantly. The patient describes this as moderate in severity and unchanged. Current treatment includes NSAIDs. Note for "Cold Symptoms": c/o nausea 06-14-2010 Unclassified (3 sources) Skin Lesion - The skin lesion appeared gradually and has been occurring for 2 weeks. It has been unchanging in size. The skin lesion is located on the back. 05-18-2010 Unclassified (1 source) history c-scope Onset: 08-12-2014 03-12-2022 Results Test Name Value Interpretation Reference Range Facility Surgery Visit Reporton 05-04 Surgery Visit Report [facility] [address] [place] [address] OFFICE VISIT Date of Service: 05/04/25 MR#: [id number] Acct: [id number] Name: VEELYN CALLE Rep #: [id number] : 1955 Provider: Dr. Theresa johnson MD Age/Sex: 70/F Location: [facility] Status: Signed Intake Vital Signs 03/26/19 14:02 05/04/25 09:17 Height 5 ft 1 in 5 ft 1 in Weight: 156 lb BMI 29.5 BP 148/79 H Blood Pressure Location Rt brachial Position Sitting Respiration 17 Pulse 69 Pulse Source Monitor Pulse Oximetry (%) 100 Oxygen Delivery Method room air Intake Visit Reasons: Esophagogastroduodenoscopy Chief Complaint: egd Is patient in pain?: No Allergies No Known Allergies Allergy (Unverified 05/04/25 09:19) Medications ???Medication ???Instructions ???Recorded ???Confirmed ???Type levothyroxine 88 mcg capsule 88 mcg PO DAILY 07/15/18 05/04/25 History ascorbic acid (vitamin C) 1,000 mg 1,000 mg PO DAILY 07/21/1805/04 History tablet,extended release calcium carbonate 500 mg PO DAILY@0800 07/21/1804/13 History cholecalciferol (vitamin D3) 25 2,000 unit PO DAILY 07/21/1805/04 History mcg (1,000 unit) tablet conjugated estrogens 0.3 mg tablet 0.05 mg PO .2x/w 05/04/25 History (Premarin) pantoprazole 40 mg tablet,delayed 40 mg PO QDAY #30 tabs 05/04/25 0 05/04/25 Rx release red yeast rice 600 mg capsule 600 mg PO QDAY 05/04/25 05/04/25 H istory sucralfate 1 gram tablet 1 g PO QACHS #21 tabs 05/04/25 Rx vitamin K2 45 mcg capsule 45 mcg PO QDAY 05/04/25 05/04/25 H istory Have you fallen in the past year?: No PFSH Medical History (Updated 05/04/25 @ 09:17 by Larisa Wolfe) Osteoporosis IBS (irritable bowel syndrome) Arthritis Thyroid disease Acid reflux Nausea Surgical History history c-scope ( 08/2014) History of esophagogastroduodenoscopy (EGD) ( 08/2014) History of laparoscopic cholecystectomy ( 2014) Family History Grandfather Diabetes Heart disease Grandmother Heart disease Mother Hypertension Cancer lung Social History Smoking Status: Former smoker alcohol intake: never substance use type: does not use additional social history: DOES NOT USE ASPIRIN DOES NOT USE IBUPROFEN HPI HPI HPI: 70-year-old female presents due to worsening reflux symptoms. Patient states she was on Prevacid but she was having a lot more nausea on and off throughout the day patient has been on Protonix 40 mg p.o. daily for the last 2 weeks states that it is much improved but does still have occasional nausea that is tolerable. Patient states she can get this on and off throughout the day. It did get worse over the last 3 weeks. Patient denies any abdominal pain with this. Patient's last colonoscopy was in 2014 negative per patient. Patient has bowel movements daily denies any blood denies any family history of colon cancer. Patient did have EGD previously with me July 2018???biopsy showed mild gastritis and some chronic inflammation of the GE junction, the patient was on pantoprazole for about a month around this time. ROS General General: Yes fatigue; No weight change, appetite, colon cancer, breast cancer or weakness HEENT HEENT: No difficulty swallowing, eye injury, eye surgery, swollen glands or hoarseness Endo Endocrine: Yes thyroid disease; No diabetes mellitus, thyroid cancer, Hair loss, heat intolerance or cold intolerance Skin Skin: No rash or changing moles Musc Musculoskeletal: No back problems, arthritis, rheumatoid arthritis, gout or joint pain Cardio Cardiovascular: No murmur, pacemaker, heart disease, atrial fibrillation, high blood pressure, heart attack, heart stent, palpitations, shortness of breath with exertion or chest pain Psych Psychiatric: No depression, anxiety or hearing voices Resp Respiratory: No shortness of breath, No sleep apnea, No cough, No COPD, No asthma, No emphysema and No wheezing Gastro Gastrointestinal: No abdominal pain, Yes nausea or vomiting, No diarrhea, No constipation, No blood in stool, Yes acid reflux, No hemorrhoids, No ulcers, No gallbladder problem and No black,tarry stools Franc Hematologic: No blood thinners, No blood disorders, No bleeding, No anemia and No blood clots Neuro Neurologic: No system reviewed and no additional complaints, except as documented, No as per HPI, No abnormal gait, No abnormal hearing, No abnormal movements, No abnormal speech, No behavioral changes, No burning sensations, No confusion, No convulsions, No disequilibrium, No dizziness, No localized weakness, No frequent falls, (more content not included)... Normal [facility] H PYLORI AG BY EIA, STOOL [C CL]on 04-28-2025 EIA Test See Below Normal Negative for H. Pylori an [facility] Comment on above: Result Comment: H.PY SHAINA EIA RESULT Negative for Helicobacter pylori antigen by EIA SOURCE: Stool [facility] [employer] [address] [place] [id number] Theron Rodriguez III, M.D. [id number] Performed By: #### 2 [id number] #### [facility],[address] [place] [id number] ABDOMEN/PELVIS [facility] [address] CT ABDOMEN/PELVIS [address] [address] Patient: EVELYN CALLE Phone#: : 1955 Age: 70 Gender: F Pt. Type: Out Account: [id number] Location: Ordering: [facility] Exam Date: 04/22/2025/8:35 Family Phys: Charge Code: [id number] Physician: Kerr Order #: [id number] Dose#: 12.00 mGy PROCEDURE: CT ABDOMEN/PELVIS WITH CONTRAST COMPARISON: None. INDICATIONS: Nausea. TECHNIQUE: After obtaining the patient's consent, CT images were created with non-ionic intravenous contrast and oral contrast material. All CT scans at this facility use dose modulation, iterative reconstruction, and/or weight based dosing when appropriate to reduce radiation dose to as low as reasonably achievable. IV CONTRAST: Omnipaque 350,80ml TOTAL DOSE: 12.00 CTDIvol(mGy) FINDINGS: LIVER: Normal. No enlargement, atrophy, abnormal density, or significant focal lesion. BILIARY: Normal. No visible dilatation or calcification. PANCREAS: Normal. No lesion, fluid collection, ductal dilatation, or atrophy. SPLEEN: Normal. No enlargement or focal lesion. KIDNEYS: Normal. No mass, obstruction, or calcification. ADRENALS: Normal. No mass or enlargement. AORTA/VASCULAR: Normal. No aneurysm or dissection. RETROPERITONEUM: Normal. No mass or adenopathy. BOWEL/MESENTERY: There is thickening of the mucosa at the duodenum consistent with duodenitis. Projecting posteriorly is accumulation of barium. Etiologies include diverticulum versus ulcer. There is moderate stool retention. ABDOMINAL WALL: Normal. No mass or hernia. URINARY BLADDER: Normal. No visible focal wall thickening, lesion, or calculus. PELVIC NODES: Normal. No adenopathy. PELVIC ORGANS: Normal. No visible mass. Pelvic organs appropriate for patient age. BONES: Normal. No bony lesion or fracture. LUNG BASES: Normal. No visible pulmonary or pleural disease. OTHER: Negative. Continued Report - Page 2 of 2 Patient: EVELYN CALLE Phone#: : 1955 Age: 70 Gender: F Pt. Type: Out Account: [id number] Location: Ordering: [facility] Exam Date: 04/22/2025/8:35 Family Phys: Charge Code: [id number] Physician: Kerr Order #: [id number] Dose#: 12.00 mGy CONCLUSION: 1. Thickening of the duodenum consistent with duodenitis. There is a posteriorly projection with barium is raising possibility of diverticulum versus ulcer. No other acute abdominal or pelvic abnormality is identified. Dictated by: Sammi Harrison MD on 04/22/2025 at 10:36 Approved by: Sammi Harrison MD on 04/22/2025 at 10:57 Normal [facility] C-REACTIVE PROTEINon 025 CRP [Mass/Vol] mg/L Normal <8.0 [facility] Comment on above: Performed By: #### 1 0231, 6399, 06162, 23718, 606, 927 #### [facility] [place] [address] Clinical Trials Assistant: Prieto Bass MD CBC (INCLUDES DIFF/PLT)on Basophils (Bld) [#/Vol] 0.05 10*3/uL Normal 0-200 [facility] Comment on above: Performed By: #### 1 0231, 6399, 70542, 03480, 606, 927 #### [facility] [place] [address] Clinical Trials Assistant: Prieto Bass MD Basophils/100 WBC (Bld) 0.9 % Normal [facility] Comment on above: Performed By: #### 1 0231, 6399, 49135, 58471, 606, 927 #### [facility] [place] [address] Clinical Trials Assistant: Prieto Bass MD Eosinophils (Bld) [#/Vol] 0.05 10*3/uL Normal 15-500 [facility] Comment on above: Performed By: #### 1 0231, 6399, 61578, 06036, 606, 927 #### [facility] of [place] [address] Clinical Trials Assistant: Prieto Bass MD Eosinophils/100 WBC (Bld) 0.9 % Normal [facility] Comment on above: Performed By: #### 1 0231, 6399, 31637, 37583, 606, 927 #### [facility] of [place] [address] Clinical Trials Assistant: Prieto Bass MD Erythrocyte distribution width (RBC) [Ratio] 12.5 % Normal 11.0-15.0 [facility] Comment on above: Performed By: #### 1 0231, 6399, 63367, 77852, 606, 927 #### [facility] of [place] [address] Clinical Trials Assistant: Prieto Bass MD Hematocrit (Bld) [Volume fraction] 45.9 % High 35.0-45.0 [facility] Comment on above: Performed By: #### 1 0231, 6399, 20513, 35295, 606, 927 #### [facility] of [place] [address] Clinical Trials Assistant: Prieto Bass MD Hemoglobin (Bld) [Mass/Vol] 15.5 g/dL Normal 11.7-15.5 [facility] Comment on above: Performed By: #### 1 0231, 6399, 61808, 16626, 606, 927 #### [facility] [place] [address] Clinical Trials Assistant: Prieto Bass MD Lymphocytes (Bld) [#/Vol] 1.618 10*3/uL Normal 850-3900 [facility] Comment on above: Performed By: #### 1 0231, 63, 20854, 75875, 60, 927 #### [facility] [place] [address] Clinical Trials Assistant: Prieto Bass MD Lymphocytes/100 WBC (Bld) 28.9 % Normal [facility] Comment on above: Performed By: #### 1 0231, 63, 36438, , 60, 927 #### [facility] [place] [address] Clinical Trials Assistant: Prieto Bass MD MCH (RBC) [Entitic mass] 31.8 pg Normal 27.0-33.0 [facility] Comment on above: Performed By: #### 1 0231, 63, 31881, , 60, 927 #### [facility] [place] [address] Clinical Trials Assistant: Prieto Bass MD MCHC (RBC) [Mass/Vol] 33.8 g/dL Normal 32.0-36.0 [facility] Comment on above: Result Comment: For adults, a slight decrease in the calculated MCHC value (in the range of 30 to 32 g/dL) is most likely not clinically significant; however, it should be interpreted with caution in correlation with other red cell parameters and the patient's clinical condition. Performed By: #### 1 0231, 63, 31847, , 60, 927 #### [facility] [place] [address] Clinical Trials Assistant: Prieto Bass MD MCV (RBC) [Entitic vol] 94.3 fL Normal 80.0-100.0 [facility] Comment on above: Performed By: #### 1 0231, 63, 83568, 01447, 60, 927 #### [facility] [place] [address] Clinical Trials Assistant: Prieto Bass MD Monocytes (Bld) [#/Vol] 0.358 10*3/uL Normal 200-950 [facility] Comment on above: Performed By: #### 1 0231, 6399, 44993, 78364, 606, 927 #### [facility] of [place] [address] Clinical Trials Assistant: Prieto Bass MD Monocytes/100 WBC (Bld) 6.4 % Normal [facility] Comment on above: Performed By: #### 1 0231, 6399, 23141, 14491, 606, 927 #### [facility] of [place] [address] Clinical Trials Assistant: Prieto Bass MD Neutrophils (Bld) [#/Vol] 3.522 10*3/uL Normal 8183-7962 [facility] Comment on above: Performed By: #### 1 0231, 6399, 68908, 29510, 606, 927 #### [facility] of [place] [address] Clinical Trials Assistant: Prieto Bass MD Neutrophils/100 WBC (Bld) 62.9 % Normal [facility] Comment on above: Performed By: #### 1 0231, 6399, 54825, 29673, 606, 927 #### [facility] [place] [address] Clinical Trials Assistant: Prieto Bass MD Platelet mean volume (Bld) [Entitic vol] 9.8 fL Normal 7.5-12.5 [facility] Comment on above: Performed By: #### 1 0231, 6399, 91918, 18287, 606, 927 #### [facility] [place] [address] Clinical Trials Assistant: Prieto Bass MD Platelets (Bld) [#/Vol] 280 10*3/uL Normal 140-400 [facility] Comment on above: Performed By: #### 1 0231, 6399, 01198, 01028, 606, 927 #### [facility] [place] [address] Clinical Trials Assistant: Prieto Bass MD RBC (Bld) [#/Vol] 4.87 10*6/uL Normal 3.80-5.10 [facility] Comment on above: Performed By: #### 1 0231, 6399, 99074, 67597, 606, 927 #### [facility] of [place] [address] Clinical Trials Assistant: Prieto Bass MD WBC (Bld) [#/Vol] 5.6 10*3/uL Normal 3.8-10.8 [facility] Comment on above: Performed By: #### 1 0231, 6399, 49474, 31742, 606, 927 #### [facility] of [place] [address] Clinical Trials Assistant: Prieto Bass MD [facility] [facility] 04-21-2025 Albumin [Mass/Vol] 4.8 g/dL Normal 3.6-5.1 [facility] Comment on above: Performed By: #### 1 0231, 6399, 92938, 55315, 606, 927 #### [facility] [place] [address] Clinical Trials Assistant: Prieto Bass MD Albumin/Globulin [Mass ratio] 1.7 {ratio} Normal 1.0-2.5 [facility] Comment on above: Performed By: #### 1 0231, 6399, 15780, 56485, 606, 927 #### [facility] [place] [address] Clinical Trials Assistant: Prieto Bass MD ALP [Catalytic activity/Vol] 93 U/L Normal 37-153 [facility] Comment on above: Performed By: #### 1 0231, 6399, 36744, 86245, 606, 927 #### [facility] [place] [address] Clinical Trials Assistant: Prieto Bass MD ALT [Catalytic activity/Vol] 22 U/L Normal 6-29 [facility] Comment on above: Performed By: #### 1 0231, 6399, 35056, 80855, 606, 927 #### [facility] [place] [address] Clinical Trials Assistant: Prieto Bass MD AST [Catalytic activity/Vol] 22 U/L Normal 10-35 [facility] Comment on above: Performed By: #### 1 0231, 6399, 00769, 40064, 606, 927 #### [facility] [place] [address] Clinical Trials Assistant: Prieto Bass MD Bilirubin [Mass/Vol] 0.7 mg/dL Normal 0.2-1.2 [facility] Comment on above: Performed By: #### 1 0231, 6399, 92945, 96491, 606, 927 #### [facility] [place] [address] Clinical Trials Assistant: Prieto Bass MD BUN/CREATININE RATIO SEE NOTE: Normal 6-22 [facility] Comment on above: Result Comment: Not Reported: BUN and Creatinine are within reference range. Performed By: #### 1 0231, 6399, 69520, 57252, 606, 927 #### [facility] [place] [address] Clinical Trials Assistant: Prieto Bass MD Calcium [Mass/Vol] 9.9 mg/dL Normal 8.6-10.4 [facility] Comment on above: Performed By: #### 1 0231, 6399, 51671, 97181, 606, 927 #### [facility] [place] [address] Clinical Trials Assistant: Prieto Bass MD Chloride [Moles/Vol] 103 mmol/L Normal 98-110 [facility] Comment on above: Performed By: #### 1 0231, 6399, 95784, 96881, 606, 927 #### [facility] [place] [address] Clinical Trials Assistant: Prieto Bass MD CO2 [Moles/Vol] 26 mmol/L Normal 20-32 [facility] Comment on above: Performed By: #### 1 0231, 63, 31223, 13378, 606, 927 #### [facility] [place] [address] Clinical Trials Assistant: Prieto Bass MD Creatinine [Mass/Vol] 0.92 mg/dL Normal 0.50-1.05 [facility] Comment on above: Performed By: #### 1 0231, 63, 18731, 62776, 606, 927 #### [facility] [place] [address] Clinical Trials Assistant: Preito Bass MD GFR/1.73 sq M.predicted among non-blacks MDRD (S/P/Bld) [Vol rate/Area] 68 mL/min/{1.73_m2} Normal > OR = 60 [facility] Comment on above: Performed By: #### 1 0231, 63, 59272, 32559, 606, 927 #### [facility] [place] [address] Clinical Trials Assistant: Prieto Bass MD Globulin (S) [Mass/Vol] 2.9 g/dL Normal 1.9-3.7 [facility] Comment on above: Performed By: #### 1 0231, 63, 07207, 38239, 60, 927 #### [facility] [place] [address] Clinical Trials Assistant: Prieto Bass MD Glucose [Mass/Vol] 94 mg/dL Normal 65-99 [facility] Comment on above: Result Comment: Fasting reference interval Performed By: #### 1 0231, 6399, 21653, 02534, 606, 927 #### [facility] [place] [address] Clinical Trials Assistant: Prieto Bass MD Potassium [Moles/Vol] 4.2 mmol/L Normal 3.5-5.3 [facility] Comment on above: Performed By: #### 1 0231, 6399, 66418, 17700, 606, 927 #### [facility] [place] [address] Clinical Trials Assistant: Prieto Bass MD Protein [Mass/Vol] 7.7 g/dL Normal 6.1-8.1 [facility] Comment on above: Performed By: #### 1 0231, 6399, 94505, 87007, 606, 927 #### [facility] [place] [address] Clinical Trials Assistant: Prieto Bass MD Sodium [Moles/Vol] 139 mmol/L Normal 135-146 [facility] Comment on above: Performed By: #### 1 0231, 6399, 89790, 30369, 606, 927 #### [facility] of [place] [address] Clinical Trials Assistant: Prieto Bass MD Urea nitrogen [Mass/Vol] 16 mg/dL Normal 7-25 [facility] Comment on above: Performed By: #### 1 0231, 6399, 44455, 83245, 606, 927 #### [facility] [place] [address] Clinical Trials Assistant: Prieto Bass MD LIPASEon 04-21-2025 Lipase [Catalytic activity/Vol] 25 U/L Normal 7-60 [facility] Comment on above: Performed By: #### 1 023, 760 #### [facility] of [place] [address] Clinical Trials Assistant: Prieto Bass MD TSH W/REFLEX TO FT4on 2024 TSH W/REFLEX TO FT4 1.44 mIU/L Normal 0.40-4.50 [facility] Comment on above: Performed By: #### 1 0231, 760 #### [facility] of [place] [address] Clinical Trials Assistant: Prieto Bass MD VITAMIN B12on 04-21-2025 Cobalamin (Vitamin B12) [Mass/Vol] 447 pg/mL Normal 200-1100 [facility] Comment on above: Performed By: #### 1 0231, 7600 #### [facility] [address], [address] [place] [address] Clinical Trials Assistant: Prieto Bass MD VITAMIN D,25-OH,TOTAL,IAon 0 04-21-2025 VITAMIN D,25-OH,TOTAL,IA 45 ng/mL Normal 30-100 [facility] Comment on above: Result Comment: Estefany min D Status 25-OH Vitamin D: Deficiency: <20 ng/mL Insufficiency: 20 - 29 ng/mL Optimal: > or = 30 ng/mL For 25-OH Vitamin D testing on patients on D2-supplementation and patients for whom quantitation of D2 and D3 fractions is required, the QuestAssureD(TM) 25-OH VIT D, (D2,D3), LC/MS/MS is recommended: order code 72856 (patients >2yrs). See Note 1 Note 1 For additional information, please refer to http://education.[employer]/faq/IOY636 (This link is being provided for informational/ educational purposes only.) Performed By: #### 1 0231, 7600 #### [facility] [address], [address] [place], [place] [id number] Clinical Trials Assistant: Prieto Bass MD CHEST 2 VIEWSon 04-20-2025 CHEST 2 VIEWS [place] [address] Patient: EVELYN CALLE Phone#: : 1955 Age: 70 Gender: F Pt. Type: Out Account: [id number] Location: Ordering: MADDY YAO Exam Date: 04/20/2025/12:44 Family Phys: Charge Code: [id number] Physician: Kerr Order #: [id number] Dose#: PROCEDURE: X-RAY CHEST 2 VIEWS COMPARISON: [facility], XR, CHEST 2 VIEWS, 12/21/2022, 10:27. INDICATIONS: Fatigue. FINDINGS: LUNGS: Normal. No significant pulmonary parenchymal abnormalities. VASCULATURE: Normal. Unremarkable pulmonary vasculature. CARDIAC: Normal. No cardiac silhouette abnormality or cardiomegaly. MEDIASTINUM: Normal. No visible mass or adenopathy. PLEURA: Normal. No effusion or pleural thickening. BONES: Normal. No fracture or visible bony lesion. OTHER: Negative. CONCLUSION: No acute disease. No significant change has occurred. Dictated by: Sammi Harrison MD on 04/20/2025 at 13:00 Approved by: Sammi Harrison MD on 04/20/2025 at 13:00 Normal [facility] CULTURE, URINE, ROUTINEon CULTURE, URINE, ROUTINE SEE NOTE Normal [facility] Comment on above: Result Comment: CULTURE, URINE, ROUTINE Micro Number: [id number] Test Status: Final Specimen Source: Urine Specimen Quality: Adequate Result: No Growth Performed By: #### 3 95 #### [facility] [address], [address] [place] [phone] Clinical Trials Assistant: Prieto Bass MD Laboratory - Chemistry and C hemistry - challengeon 03-17-2025 Bilirubin Ql (U) Negative Normal [employer]. Ketones Ql (U) Negative Normal [employer]. pH (U) 7.5 [pH] Normal [employer]. Specific gravity (U) [Rel density] 1.015 Normal [employer]. Urobilinogen Qn (U) 0.2 mg/dL Normal [employer]. Laboratory - Hematology and Cell countson 03-17-2025 Hemoglobin Ql (U) Negative Normal [employer], [employer]. Laboratory - Specimen inform ationon 03-17-2025 Appearance (U) clear Normal [employer]. Color (U) yellow Normal [employer]. Laboratory - Urinalysison Glucose Test strip (U) [Mass/Vol] Negative Normal [employer] [facility] Leukocyte esterase Test strip Ql (U) small Abnormal [facility] [employer].; [employer] Nitrite Ql (U) Negative Normal [facility] Protein Ql (U) Negative Normal [facility] [employer] KNEE COMPLETE RT MIN 4 VIEWS on 01-22-2025 KNEE COMPLETE RT MIN 4 VIEWS [place] [address] Patient: EVELYN CALLE Phone#: : 1955 Age: 69 Gender: F Pt. Type: Out Account: [id number] Location: Ordering: [facility] Exam Date: 01/22/2025/11:11 Family Phys: Charge Code: [id number] Physician: Kerr Order #: [id number] Dose#: PROCEDURE: X-RAY KNEE RT COMPLETE 4 VIEWS COMPARISON: None. INDICATIONS: Right knee pain. FINDINGS: BONES: Mild degenerative changes of knee are present. There is narrowing compartment and patellofemoral joint space. SOFT TISSUES: Prepatellar soft tissue swelling is present. EFFUSION: None visible. OTHER: Negative. CONCLUSION: 1. There is no evidence of acute abnormality. Mild degenerative changes present. Dictated by: Sammi Harrison MD on 01/22/2025 at 13:05 Approved by: Sammi Harrison MD on 01/22/2025 at 13:06 Normal [facility] COMPREHENSIVE METABOLIC PANE Masoud 01-12-2025 Albumin [Mass/Vol] 4.7 g/dL Normal 3.6-5.1 [facility] Comment on above: Performed By: #### 1 1112, 7617 #### [facility] [address], [address] [place] [phone] Clinical Trials Assistant: Prieto Bass MD Albumin/Globulin [Mass ratio] 1.7 {ratio} Normal 1.0-2.5 [facility] Comment on above: Performed By: #### 1 0231, 1360 #### [facility] of [address], [address] [place] [address] Clinical Trials Assistant: Prieto Bass MD ALP [Catalytic activity/Vol] 100 U/L Normal 37-153 [facility] Comment on above: Performed By: #### 1 0231, 7600 #### [facility] of [address], [address] [place] [address] Clinical Trials Assistant: Prieto Bass MD ALT [Catalytic activity/Vol] 25 U/L Normal 6-29 [facility] Comment on above: Performed By: #### 1 0231, 7600 #### [facility] of [address], [address] [place] [address] Clinical Trials Assistant: Prieto Bass MD AST [Catalytic activity/Vol] 25 U/L Normal 10-35 [facility] Comment on above: Performed By: #### 1 0231, 7600 #### [facility] of [address], [address] [place] [address] Clinical Trials Assistant: Prieto Bass MD Bilirubin [Mass/Vol] 0.6 mg/dL Normal 0.2-1.2 [facility] Comment on above: Performed By: #### 1 0231, 7600 #### [facility] of [place] [address] Clinical Trials Assistant: Prieto Bass MD BUN/CREATININE RATIO SEE NOTE: Normal 6-22 [facility] Comment on above: Result Comment: Not Reported: BUN and Creatinine are within reference range. Performed By: #### 1 0231, 7600 #### [facility] of [address], [address] [place] [address] Clinical Trials Assistant: Prieto Bass MD Calcium [Mass/Vol] 9.7 mg/dL Normal 8.6-10.4 [facility] Comment on above: Performed By: #### 1 0231, 7600 #### [facility] of [address], [address] [place] [address] Clinical Trials Assistant: Prieto Bass MD Chloride [Moles/Vol] 105 mmol/L Normal 98-110 [facility] Comment on above: Performed By: #### 1 023, 7600 #### [facility] [place] [address] Clinical Trials Assistant: Prieto Bass MD CO2 [Moles/Vol] 27 mmol/L Normal 20-32 [facility] Comment on above: Performed By: #### 1 023, 7600 #### [facility] [place] [address] Clinical Trials Assistant: Prieto Bass MD Creatinine [Mass/Vol] 0.93 mg/dL Normal 0.50-1.05 [facility] Comment on above: Performed By: #### 1 023, 7600 #### [facility] [place] [address] Clinical Trials Assistant: Prieto Bass MD GFR/1.73 sq M.predicted among non-blacks MDRD (S/P/Bld) [Vol rate/Area] 67 mL/min/{1.73_m2} Normal > OR = 60 [facility] Comment on above: Performed By: #### 1 023, 0 #### [facility] [place] [address] Clinical Trials Assistant: Prieto Bass MD Globulin (S) [Mass/Vol] 2.8 g/dL Normal 1.9-3.7 [facility] Comment on above: Performed By: #### 1 023, 7600 #### [facility] [place] [address] Clinical Trials Assistant: Prieto Bass MD Glucose [Mass/Vol] 91 mg/dL Normal 65-99 [facility] Comment on above: Result Comment: Fasting reference interval Performed By: #### 1 023, 7600 #### [facility] of [place] [address] Clinical Trials Assistant: Prieto Bass MD Potassium [Moles/Vol] 4.3 mmol/L Normal 3.5-5.3 [facility] Comment on above: Performed By: #### 1 0231, 7600 #### [facility] of [address], [address] [place] [address] Clinical Trials Assistant: Prieto Bass MD Protein [Mass/Vol] 7.5 g/dL Normal 6.1-8.1 [facility] Comment on above: Performed By: #### 1 0231, 7600 #### [facility] of [place] [address] Clinical Trials Assistant: Prieto Bass MD Sodium [Moles/Vol] 140 mmol/L Normal 135-146 [facility] Comment on above: Performed By: #### 1 0231, 7600 #### [facility] [place] [address] Clinical Trials Assistant: Prieto Bass MD Urea nitrogen [Mass/Vol] 15 mg/dL Normal 7-25 [facility] Comment on above: Performed By: #### 1 0231, 7600 #### [facility] [place] [address] Clinical Trials Assistant: Prieto Bass MD LIPID PANEL, [facility] 06-0 Cholesterol [Mass/Vol] 202 mg/dL High <200 [facility] Comment on above: Performed By: #### 1 0231, 7600 #### [facility] [place] [address] Clinical Trials Assistant: Prieto Bass MD Cholesterol in HDL [Mass/Vol] 66 mg/dL Normal > OR = 50 [facility] Comment on above: Performed By: #### 1 0231, 7600 #### [facility] [place] [address] Clinical Trials Assistant: Prieto Bass MD Cholesterol in LDL [Mass/Vol] 113 mg/dL High [facility] Comment on above: Result Comment: Refe rence range: <100 Desirable range <100 mg/dL for primary prevention; <70 mg/dL for patients with CHD or diabetic patients with > or = 2 CHD risk factors. LDL-C is now calculated using the Kyree-Deleon calculation, which is a validated novel method providing better accuracy than the Friedewald equation in the estimation of LDL-C. Kyree LEHMAN et al. SHELLEY. 2013;310(19): 5129-3533 (http://education.[employer]/faq/YRL862) Performed By: #### 1 0231, 7600 #### [facility] [place] [address] Clinical Trials Assistant: Prieto Bass MD Cholesterol.total/Ch olesterol in HDL [Mass ratio] 3.1 {ratio} Normal <5.0 [facility] Comment on above: Performed By: #### 1 0231, 7600 #### [facility] [place] [address] Clinical Trials Assistant: Prieto Bass MD NON HDL CHOLESTEROL 136 mg/dL (calc) High <130 [facility] Comment on above: Result Comment: For patients with diabetes plus 1 major ASCVD risk factor, treating to a non-HDL-C goal of <100 mg/dL (LDL-C of <70 mg/dL) is considered a therapeutic option. Performed By: #### 1 0231, 7600 #### [facility] [place] [address] Clinical Trials Assistant: Prieto Bass MD Triglyceride [Mass/Vol] 122 mg/dL Normal <150 [facility] Comment on above: Performed By: #### 1 0231, 7600 #### [facility] [place] [address] Clinical Trials Assistant: Prieto Bass MD No Panel Informationon 01-11 202 mg/dL Abnormal [facility] 66 mg/dL Normal [facility] 122 mg/dL Normal [facility] [address] [facility] 3.1 Normal [facility] [address] [facility] 91 mg/dL Normal 65 - 99 mg/dL [facility] 15 mg/dL Normal 7 - 25 mg/dL [facility] 0.93 mg/dL Normal 0.50 - 1.05 mg/dL [facility] [employer] 67 Normal [facility] [employer] [facility] [employer] SEE NOTE: Normal 6 - 22 [facility] [employer] [facility] [employer] 140 mmol/L Normal 135 - 146 mmol/L [facility] [employer] [facility] [employer] 4.3 mmol/L Normal 3.5 - 5.3 mmol/L [place] [facility] [employer] 105 mmol/L Normal 98 - 110 mmol/L [facility] [employer] 27 mmol/L Normal 20 - 32 mmol/L [place] [facility] [employer] 9.7 mg/dL Normal 8.6 - 10.4 mg/dL [facility] [employer] [facility] [employer] 7.5 g/dL Normal 6.1 - 8.1 g/dL [place] [facility] [employer] 4.7 g/dL Normal 3.6 - 5.1 g/dL [place] [facility] [employer] 2.8 Normal 1.9 - 3.7 [place] [facility] [employer] 1.7 Normal 1.0 - 2.5 [facility] [employer] [facility] [employer] 0.6 mg/dL Normal 0.2 - 1.2 mg/dL [facility] [employer] 100 U/L Normal 37 - 153 U/L [facility] [employer] [facility] [employer] 25 U/L Normal 6 - 29 U/L [facility] [employer] DBT Breast - bilateral mack bacon 11-17-2024 IMPRESSION: There is no mammographic evidence of malignancy in either breast. Routine screening mammogram is recommended. Annual mammogram will be due in 1 year. BI-RADS Category 1: Negative RISK: Based on the Tyrer-Cuzick (TC) risk assessment model, this patient has a 2.7% lifetime risk of developing breast cancer, meaning they are at average risk for developing breast cancer. However, this is only an estimate based on available history provided on the patient's questionnaire. We encourage all patients to talk with their providers about these results, further recommendations for managing breast health, and appropriate supplemental screening options if the patient has dense breast tissue. Interpreting Radiologist: Mike Acevedo M.D. Electronically signed on: 11/17/2024 Bale Opener: RBUCE Transcribe Date/Time: Nov 17 2024 11:21A Dictated by : MIKE ACEVEDO MD This examination was interpreted and the report reviewed and electronically signed by: MIKE ACEVEDO MD on Nov 17 2024 5:55PM EST [facility] * * *Final Report* * * DATE OF EXAM: Nov 17 2024 11:30AM W [id number] - [facility] SCREENING W BATSHEVA / PROCEDURE REASON: SCREENING * * * * Physician Interpretation * * * * [place] [address] #[id number] - [facility] SCREENING W BATSHEVA HISTORY: 69 year-old patient seen for screening. No current complaints. Patient states no personal history of breast cancer. COMPARISON STUDIES: The present examination has been compared to prior imaging studies dated 11/20/2018 (mammogram), 01/21/2020 (mammogram), 01/26/2021 (mammogram), 02/15/2022 (mammogram) and 03/14/2023 (mammogram). MAMMOGRAM TECHNIQUE: The study was acquired using full field digital technology and interpreted from soft copy. Digital Breast Tomosynthesis (DBT) images were obtained and used to assist in the interpretation of this examination. MAMMOGRAM FINDINGS: The breasts are almost entirely fatty. No suspicious masses, calcifications or other abnormalities are seen in either breast. There are no significant interval changes. [facility] Provider, Pete Ramirez [facility] - 11/17/2024 * * *Final Report* * * DATE OF EXAM: Nov 17 2024 11:30AM UDW 0582 - [place] SCREENING W BATSHEVA / PROCEDURE REASON: SCREENING * * * * Physician Interpretation * * * * [facility] [place] [address] #[id number] - [place] SCREENING W BATSHEVA HISTORY: 69 year-old patient seen for screening. No current complaints. Patient states no personal history of breast cancer. COMPARISON STUDIES: The present examination has been compared to prior imaging studies dated 11/20/2018 (mammogram), 01/21/2020 (mammogram), 01/26/2021 (mammogram), 02/15/2022 (mammogram) and 03/14/2023 (mammogram). MAMMOGRAM TECHNIQUE: The study was acquired using full field digital technology and interpreted from soft copy. Digital Breast Tomosynthesis (DBT) images were obtained and used to assist in the interpretation of this examination. MAMMOGRAM FINDINGS: The breasts are almost entirely fatty. No suspicious masses, calcifications or other abnormalities are seen in either breast. There are no significant interval changes. IMPRESSION IMPRESSION: There is no mammographic evidence of malignancy in either breast. Routine screening mammogram is recommended. Annual mammogram will be due in 1 year. BI-RADS Category 1: Negative RISK: Based on the Tyrer-Cuzick (TC) risk assessment model, this patient has a 2.7% lifetime risk of developing breast cancer, meaning they are at average risk for developing breast cancer. However, this is only an estimate based on available history provided on the patient's questionnaire. We encourage all patients to talk with their providers about these results, further recommendations for managing breast health, and appropriate supplemental screening options if the patient has dense breast tissue. Interpreting Radiologist: Mike Acevedo M.D. Electronically signed on: 11/17/2024 Bale Opener: BRUCE Transcrijennifer Date/Time: Nov 17 2024 11:21A Dictated by : MIKE ACEVEDO MD This examination was interpreted and the report reviewed and electronically signed by: MIKE ACEVEDO MD on Nov 17 2024 5:55PM EST [facility] Radiology Study observation (narrative) [facility] DBT Breast - bilateral scree ningOrdered By: [facility] Provider on 11-17-2024 [facility] [place] SCREENING W TOMOon 11-17 [facility] SCREENING W BATSHEVA * * *Final Report* * * DATE OF EXAM: Nov 17 2024 11:30AM UDW 0582 - [place] SCREENING W BATSHEVA / PROCEDURE REASON: SCREENING * * * * Physician Interpretation * * * * [place] [address] [place] [id number] #[id number] - [place] SCREENING W BATSHEVA HISTORY: 69 year-old patient seen for screening. No current complaints. Patient states no personal history of breast cancer. COMPARISON STUDIES: The present examination has been compared to prior imaging studies dated 11/20/2018 (mammogram), 01/21/2020 (mammogram), 01/26/2021 (mammogram), 02/15/2022 (mammogram) and 03/14/2023 (mammogram). MAMMOGRAM TECHNIQUE: The study was acquired using full field digital technology and interpreted from soft copy. Digital Breast Tomosynthesis (DBT) images were obtained and used to assist in the interpretation of this examination. MAMMOGRAM FINDINGS: The breasts are almost entirely fatty. No suspicious masses, calcifications or other abnormalities are seen in either breast. There are no significant interval changes. IMPRESSION: There is no mammographic evidence of malignancy in either breast. Routine screening mammogram is recommended. Annual mammogram will be due in 1 year. BI-RADS Category 1: Negative RISK: Based on the Tyrer-Cuzick (TC) risk assessment model, this patient has a 2.7% lifetime risk of developing breast cancer, meaning they are at average risk for developing breast cancer. However, this is only an estimate based on available history provided on the patient's questionnaire. We encourage all patients to talk with their providers about these results, further recommendations for managing breast health, and appropriate supplemental screening options if the patient has dense breast tissue. Interpreting Radiologist: Mike Acevedo M.D. Electronically signed on: 11/17/2024 Bale Opener: BRUCE Transcribe Date/Time: Nov 17 2024 11:21A Dictated by : MIKE ACEVEDO MD This examination was interpreted and the report reviewed and electronically signed by: MIKE ACEVEDO MD on Nov 17 2024 5:55PM EST [id number] Normal [facility] RIBS BILAT W/ CHEST EXPIRATI ONon 08-17-2024 RIBS BILAT W/ CHEST EXPIRATION [address] [address] Patient: EVELYN CALLE Phone#: : 1955 Age: 69 Gender: F Pt. Type: Out Account: [id number] Location: Ordering: [facility] Exam Date: 08/17/2024/9:09 Family Phys: Charge Code: [id number] Physician: Kerr Order #: [id number] Dose#: PROCEDURE: X-RAY RIBS BILAT WITH EXPIRATION CHEST COMPARISON: [facility], XR, CHEST 2 VIEWS, 12/21/2022, 10:27. INDICATIONS: Costochondral pain. FINDINGS: LUNGS: Normal. No significant pulmonary parenchymal abnormalities. VASCULATURE: Normal. Unremarkable pulmonary vasculature. CARDIAC: Normal. No cardiac silhouette abnormality or cardiomegaly. MEDIASTINUM: Normal. No visible mass or adenopathy. PLEURA: Normal. No effusion or pleural thickening. BONES: Stable remote healed left posterior 4th, 5th, and 6th rib fractures. Diffuse bony demineralization. No appreciable acute osseous abnormality. OTHER: Negative. CONCLUSION: 1. No appreciable acute rib fracture. Note: Nondisplaced fracture may not be evident in the setting of diffuse bony demineralization. Dictated by: Lurdes Sotelo MD on 08/17/2024 at 9:30 Approved by: Lurdes Sotelo MD on 08/17/2024 at 9:39 Normal [facility] CBC (INCLUDES DIFF/PLT)on Basophils (Bld) [#/Vol] 0.052 10*3/uL Normal 0-200 [facility] Comment on above: Performed By: #### 7 360, 4622, 76387 #### [facility] [address], [address] [place] [phone] Clinical Trials Assistant: Prieto Bass MD Basophils/100 WBC (Bld) 1.0 % Normal [facility] Comment on above: Performed By: #### 7 600, 6399, [address]70 #### [facility] of [address], [address] [place] [address] Clinical Trials Assistant: Prieto Bass MD Eosinophils (Bld) [#/Vol] 0.14 10*3/uL Normal 15-500 [facility] Comment on above: Performed By: #### 7 600, 6399, [address] #### [facility] of [address], [address] [place] [address] Clinical Trials Assistant: Prieto Bass MD Eosinophils/100 WBC (Bld) 2.7 % Normal [facility] Comment on above: Performed By: #### 7 600, 6399, 985[address] #### [facility] of [place] [address] Clinical Trials Assistant: Prieto Bass MD Erythrocyte distribution width (RBC) [Ratio] 12.4 % Normal 11.0-15.0 [facility] Comment on above: Performed By: #### 7 600, 6399, [address] #### [facility] [place] [address] Clinical Trials Assistant: Prieto Bass MD Hematocrit (Bld) [Volume fraction] 43.0 % Normal 35.0-45.0 [facility] Comment on above: Performed By: #### 7 600, 6399, [address]49[address] #### [facility] [place] [address] Clinical Trials Assistant: Prieto Bass MD Hemoglobin (Bld) [Mass/Vol] 14.7 g/dL Normal 11.7-15.5 [facility] Comment on above: Performed By: #### 7 600, 6399, 29280 #### [facility] [place] [address] Clinical Trials Assistant: Prieto Bass MD Lymphocytes (Bld) [#/Vol] 1.425 10*3/uL Normal 850-3900 [facility] Comment on above: Performed By: #### 7 600, 6399, [address]3733 #### [facility] of [place] [address], [address] [place] [address] Clinical Trials Assistant: Prieto Bass MD Lymphocytes/100 WBC (Bld) 27.4 % Normal [facility] Comment on above: Performed By: #### 7 600, 6399, [address] #### [facility] [place] [address] Clinical Trials Assistant: Prieto Bass MD MCH (RBC) [Entitic mass] 32.0 pg Normal 27.0-33.0 [facility] Comment on above: Performed By: #### 7 600, 6399, [id number] #### [facility] [place] [address] Clinical Trials Assistant: Prieto Bass MD MCHC (RBC) [Mass/Vol] 34.2 g/dL Normal 32.0-36.0 [facility] Comment on above: Result Comment: For adults, a slight decrease in the calculated MCHC value (in the range of 30 to 32 g/dL) is most likely not clinically significant; however, it should be interpreted with caution in correlation with other red cell parameters and the patient's clinical condition. Performed By: #### 7 600, 6399, 20807 #### [facility] [place] [address] Clinical Trials Assistant: Prieto Bass MD MCV (RBC) [Entitic vol] 93.7 fL Normal 80.0-100.0 [facility] Comment on above: Performed By: #### 7 600, 6399, 99024 #### [facility] [place] [address] Clinical Trials Assistant: Prieto Bass MD Monocytes (Bld) [#/Vol] 0.312 10*3/uL Normal 200-950 [facility] Comment on above: Performed By: #### 7 600, 6399, 98433 #### [facility] [place] [address] Clinical Trials Assistant: Prieto Bass MD Monocytes/100 WBC (Bld) 6.0 % Normal [facility] Comment on above: Performed By: #### 7 600, 6399, 17125 #### [facility] of [place] [address] Clinical Trials Assistant: Prieto Bass MD Neutrophils (Bld) [#/Vol] 3.271 10*3/uL Normal 2061-7482 [facility] Comment on above: Performed By: #### 7 600, 6399, 44928 #### [facility] of [place] [address] Clinical Trials Assistant: Prieto Bass MD Neutrophils/100 WBC (Bld) 62.9 % Normal [facility] Comment on above: Performed By: #### 7 600, 63, 07524 #### [facility] of [place] [address] Clinical Trials Assistant: Prieto Bass MD Platelet mean volume (Bld) [Entitic vol] 10.2 fL Normal 7.5-12.5 [facility] Comment on above: Performed By: #### 7 600, 6399, 12466 #### [facility] of [place] [address] Clinical Trials Assistant: Prieto Bass MD Platelets (Bld) [#/Vol] 287 10*3/uL Normal 140-400 [facility] Comment on above: Performed By: #### 7 600, 6399, 32280 #### [facility] of [place] [address] Clinical Trials Assistant: Prieto Bass MD RBC (Bld) [#/Vol] 4.59 10*6/uL Normal 3.80-5.10 [facility] Comment on above: Performed By: #### 7 600, 6399, 20307 #### [facility] of [place] [address] Clinical Trials Assistant: Prieto Bass MD WBC (Bld) [#/Vol] 5.2 10*3/uL Normal 3.8-10.8 [facility] Comment on above: Performed By: #### 7 600, 6399, 46742 #### [facility] of [address], [address] [place] [address] Clinical Trials Assistant: Prieto Bass MD [facility] 07-17-2024 Albumin [Mass/Vol] 4.9 g/dL Normal 3.6-5.1 [facility] Comment on above: Performed By: #### 7 600, 6399, 91168 #### [facility] of [address], [address] [place] [address] Clinical Trials Assistant: Prieto Bass MD Albumin/Globulin [Mass ratio] 1.8 {ratio} Normal 1.0-2.5 [facility] Comment on above: Performed By: #### 7 600, 6399, 33207 #### [facility] of [address], [address] [place] [address] Clinical Trials Assistant: Prieto Bass MD ALP [Catalytic activity/Vol] 91 U/L Normal 37-153 [facility] Comment on above: Performed By: #### 7 600, 6399, 23899 #### [facility] of [address], [address] [place] [address] Clinical Trials Assistant: Prieto Bass MD ALT [Catalytic activity/Vol] 19 U/L Normal 6-29 [facility] Comment on above: Performed By: #### 7 600, 6399, 22681 #### [facility] of [address], [address] [place] [address] Clinical Trials Assistant: Prieto Bass MD AST [Catalytic activity/Vol] 23 U/L Normal 10-35 [facility] Comment on above: Performed By: #### 7 600, 6399, 73330 #### [facility] of [place] [address] Clinical Trials Assistant: Prieto Bass MD Bilirubin [Mass/Vol] 0.6 mg/dL Normal 0.2-1.2 [facility] Comment on above: Performed By: #### 7 600, 6399, 72863 #### [facility] of [address], [address] [place] [address] Clinical Trials Assistant: Prieto Bass MD BUN/CREATININE RATIO SEE NOTE: Normal 6-22 [facility] Comment on above: Result Comment: Not Reported: BUN and Creatinine are within reference range. Performed By: #### 7 600, 6399, 95563 #### [facility] [address], [address] [place] [address] Clinical Trials Assistant: Prieto Bass MD Calcium [Mass/Vol] 9.9 mg/dL Normal 8.6-10.4 [facility] Comment on above: Performed By: #### 7 600, 6399, 58243 #### [facility] of [address], [address] [place] [address] Clinical Trials Assistant: Prieto Bass MD Chloride [Moles/Vol] 102 mmol/L Normal 98-110 [facility] Comment on above: Performed By: #### 7 600, 6399, 57134 #### [facility] of [address], [address] [place] [address] Clinical Trials Assistant: Prieto Bass MD CO2 [Moles/Vol] 26 mmol/L Normal 20-32 [facility] Comment on above: Performed By: #### 7 600, 6399, 73002 #### [facility] of [place] [address] Clinical Trials Assistant: Prieto Bass MD Creatinine [Mass/Vol] 0.96 mg/dL Normal 0.50-1.05 [facility] Comment on above: Performed By: #### 7 600, 6399, 99052 #### [facility] of [address], [address] [place] [address] Clinical Trials Assistant: Prieto Bass MD GFR/1.73 sq M.predicted among non-blacks MDRD (S/P/Bld) [Vol rate/Area] 65 mL/min/{1.73_m2} Normal > OR = 60 [facility] Comment on above: Performed By: #### 7 600, 6399, 21443 #### [facility] of [address], [address] [place] [address] Clinical Trials Assistant: Prieto Bass MD Globulin (S) [Mass/Vol] 2.8 g/dL Normal 1.9-3.7 [facility] Comment on above: Performed By: #### 7 600, 6399, 47251 #### [facility] [place] [address] Clinical Trials Assistant: Prieto Bass MD Glucose [Mass/Vol] 83 mg/dL Normal 65-99 [facility] Comment on above: Result Comment: Fasting reference interval Performed By: #### 7 600, 6399, 13725 #### [facility] of [place] [address] Clinical Trials Assistant: Prieto Bass MD Potassium [Moles/Vol] 4.4 mmol/L Normal 3.5-5.3 [facility] Comment on above: Performed By: #### 7 600, 6399, 95969 #### [facility] of [place] [address] Clinical Trials Assistant: Prieto Bass MD Protein [Mass/Vol] 7.7 g/dL Normal 6.1-8.1 [facility] Comment on above: Performed By: #### 7 600, 6399, 46390 #### [facility] [place] [address] Clinical Trials Assistant: Prieto Bass MD Sodium [Moles/Vol] 139 mmol/L Normal 135-146 [facility] Comment on above: Performed By: #### 7 600, 6399, 04137 #### [facility] of [place] [address] Clinical Trials Assistant: Prieto Bass MD Urea nitrogen [Mass/Vol] 17 mg/dL Normal 7-25 [facility] Comment on above: Performed By: #### 7 600, 6399, 78017 #### [facility] of [place] [address] Clinical Trials Assistant: Prieto Bass MD LIPID PANEL, [address] Cholesterol [Mass/Vol] 274 mg/dL High <200 [facility] Comment on above: Performed By: #### 7 600, 6399, 78774 #### [facility] [place] [address] Clinical Trials Assistant: Prieto Bass MD Cholesterol in HDL [Mass/Vol] 73 mg/dL Normal > OR = 50 [facility] Comment on above: Performed By: #### 7 600, 6399, 37764 #### [facility] [address], [address] [place] [address] Clinical Trials Assistant: Prieto Bass MD Cholesterol in LDL [Mass/Vol] 181 mg/dL High [facility] Comment on above: Result Comment: Refe rence range: <100 Desirable range <100 mg/dL for primary prevention; <70 mg/dL for patients with CHD or diabetic patients with > or = 2 CHD risk factors. LDL-C is now calculated using the [place] calculation, which is a validated novel method providing better accuracy than the Friedewald equation in the estimation of LDL-C. Kyree LEHMAN et al. SHELLEY. 2013;310(19): 8819-3103 (http://education.Undesk.Freshtake Media/faq/WFU142) Performed By: #### 7 600, 6399, 95546 #### [facility] [place] [address] Clinical Trials Assistant: Prieto Bass MD Cholesterol.total/Ch olesterol in HDL [Mass ratio] 3.8 {ratio} Normal <5.0 [facility] Comment on above: Performed By: #### 7 600, 6399, 44153 #### [facility] [address], [address] [place] [address] Clinical Trials Assistant: Prieto Bass MD NON HDL CHOLESTEROL 201 mg/dL (calc) High <130 [facility] Comment on above: Result Comment: For patients with diabetes plus 1 major ASCVD risk factor, treating to a non-HDL-C goal of <100 mg/dL (LDL-C of <70 mg/dL) is considered a therapeutic option. Performed By: #### 7 600, 6399, 81555 #### [facility] of [facility] [address], [address] [place] [address] Clinical Trials Assistant: Prieto Bass MD Triglyceride [Mass/Vol] 89 mg/dL Normal <150 [facility] Comment on above: Performed By: #### 7 600, 6399, 13765 #### [facility] [address] [place], [place] [address]e Rd, [address] [place] [address] Clinical Trials Assistant: Prieto Bass MD TSHon 07-17-2024 TSH Qn 2.08 m[IU]/L Normal 0.40-4.50 [facility] Comment on above: Performed By: #### 7 600, 6399, 26567 #### [facility] [address], [address] [place] [address] Clinical Trials Assistant: Prieto Bass MD No Panel Informationon 07-16 274 mg/dL Abnormal [facility] 73 mg/dL Normal [facility] 89 mg/dL Normal [facility] 181 Abnormal [facility] 3.8 Normal [facility] 201 Abnormal [facility] 83 mg/dL Normal 65 - 99 mg/dL [facility] 17 mg/dL Normal 7 - 25 mg/dL [facility] 0.96 mg/dL Normal 0.50 - 1.05 mg/dL [facility] 65 Normal [facility] SEE NOTE: Normal 6 - [address] [facility] 139 mmol/L Normal 135 - 146 mmol/L [facility] 4.4 mmol/L Normal 3.5 - 5.3 mmol/L [facility] 102 mmol/L Normal 98 - 110 mmol/L [facility] 26 mmol/L Normal 20 - 32 mmol/L [facility], [facility] 9.9 mg/dL Normal 8.6 - 10.4 mg/dL [facility], [facility] 7.7 g/dL Normal 6.1 - 8.1 g/dL [facility], [facility] 4.9 g/dL Normal 3.6 - 5.1 g/dL [facility], [facility] 2.8 Normal 1.9 - 3.7 [facility] 1.8 Normal 1.0 - 2.5 [facility] 0.6 mg/dL Normal 0.2 - 1.2 mg/dL [facility], [facility] 91 U/L Normal 37 - 153 U/L [facility], [facility] 23 U/L Normal 10 - 35 U/L [facility] 19 U/L Normal 6 - 29 U/L [facility], [facility] 5.2 Normal 3.8 - 10.8 [facility], [facility] 4.59 {Million/uL} Normal 3.80 - 5.10 {Million/u L} [facility] 14.7 g/dL Normal 11.7 - 15.5 g/dL [facility], [facility] 43.0 % Normal 35.0 - 45.0 % [facility] 93.7 fL Normal 80.0 - 100.0 fL [facility], [facility] 32.0 pg Normal 27.0 - 33.0 pg [facility], [facility] 34.2 g/dL Normal 32.0 - 36.0 g/dL [employer] 12.4 % Normal 11.0 - 15.0 % [employer] [employer] 287 Normal 140 - 400 [employer] [employer] 10.2 fL Normal 7.5 - 12.5 fL [employer] [employer] 3271 {cells/uL} Normal 1500 - 7800 {cells/uL} [employer] 1425 {cells/uL} Normal 850 - 3900 {cells/uL} [employer] 312 {cells/uL} Normal 200 - 950 {cells/uL} [employer] 140 {cells/uL} Normal 15 - 500 {cells/uL} [employer] 52 {cells/uL} Normal 0 - 200 {cells/uL} [employer] 62.9 % Normal [employer] 27.4 % Normal [employer] 6.0 % Normal [employer] 2.7 % Normal [employer] 1.0 % Normal [employer] 2.08 {mIU/L} Normal 0.40 - 4.50 {mIU/L} [employer] DXA Skeletal system.axial Vi ews for bone densityon 07-16-2023 IMPRESSION: Osteopenia by WHO criteria. World Health Organization criteria: (Comparing with young normal sex matched population) - Normal: T-score at or above -1 SD (standard deviation) - Osteopenia: T-score between -1 and -2.5 SD - Osteoporosis: T-score at or below -2.5 SD The NOF recommends that FDA-approved medical therapies be considered in post-menopausal women and men age >/= 50 years with a: * Hip or vertebral fracture, or * T-score of * Ten-year fracture probability by FRAX of: * >/= 20% for major osteoporotic fractures or * >/= 3% for hip fractures All treatment decisions require clinical judgement and consideration of individual patient factors, including patient preferences, comorbidities, previous drug use, risk factors not captured in the FRAX registered model (e.g., frailty, falls, vitamin D deficiency, increased bone turnover, interval significant decline in bone density) and possible under- or over-estimation of fracture risk by FRAX. Electronically signed By Zena Perez DO 07/16/2023 3:01:18 PM [facility] Workstation ID : [id number] Bale Opener: CHITRA Transcribe Date/Time: Jul 16 2023 3:01P Dictated by : ZENA PEREZ, This examination was interpreted and the report reviewed and electronically signed by: ZENA PEREZ, on Jul 16 2023 3:01PM [facility] * * *Final Report* * * DATE OF EXAM: Jul 16 2023 11:09AM [facility] 0804 - BD DXA - AXIAL SKELETON / PROCEDURE REASON: SPEC DISORDER OF BONE DENSITY * * * * Physician Interpretation * * * * EXAMINATION: BONE DENSITOMETRY 07/16/2023 11:09 am TECHNIQUE: A bone density dual x-ray absorptiometry (DEXA) scan was performed of the axial (e.g. hips, spine) and/or appendicular (e.g. radius) skeleton as appropriate. COMPARISON: 03/08/2020 HISTORY: ORDERING SYSTEM PROVIDED HISTORY: TECHNOLOGIST PROVIDED HISTORY: Reason for Exam: SPEC DISORDER OF BONE DENSITY FINDINGS: BMD (g/cm2) Lumbar Spine: 0.895. T Score Lumbar Spine: BMD Change from previous 2.8% BMD (g/cm2) Left Femoral Neck: 0.788. T Score Left Femoral Neck: -1.8 BMD (g/cm2) Left Hip: 0.834. T Score Left Hip: -1.4 BMD Change from previous -2% BMD (g/cm2) Right Femoral Neck: 0.719. T Score Right Femoral Neck: -2.3 BMD (g/cm2) Right Hip: 0.747. T Score Right Hip: -2.1 BMD change from previous -4.1% [facility] Provider, Pete Roman - 07/16/2023 * * *Final Report* * * DATE OF EXAM: Jul 16 2023 11:09AM [facility] 0804 - BD DXA - AXIAL SKELETON / PROCEDURE REASON: SPEC DISORDER OF BONE DENSITY * * * * Physician Interpretation * * * * EXAMINATION: BONE DENSITOMETRY 07/16/2023 11:09 am TECHNIQUE: A bone density dual x-ray absorptiometry (DEXA) scan was performed of the axial (e.g. hips, spine) and/or appendicular (e.g. radius) skeleton as appropriate. COMPARISON: 03/08/2020 HISTORY: ORDERING SYSTEM PROVIDED HISTORY: TECHNOLOGIST PROVIDED HISTORY: Reason for Exam: SPEC DISORDER OF BONE DENSITY FINDINGS: BMD (g/cm2) Lumbar Spine: 0.895. T Score Lumbar Spine: BMD Change from previous 2.8% BMD (g/cm2) Left Femoral Neck: 0.788. T Score Left Femoral Neck: -1.8 BMD (g/cm2) Left Hip: 0.834. T Score Left Hip: -1.4 BMD Change from previous -2% BMD (g/cm2) Right Femoral Neck: 0.719. T Score Right Femoral Neck: -2.3 BMD (g/cm2) Right Hip: 0.747. T Score Right Hip: -2.1 BMD change from previous -4.1% IMPRESSION IMPRESSION: Osteopenia by WHO criteria. World Health Organization criteria: (Comparing with young normal sex matched population) - Normal: T-score at or above -1 SD (standard deviation) - Osteopenia: T-score between -1 and -2.5 SD - Osteoporosis: T-score at or below -2.5 SD The NOF recommends that FDA-approved medical therapies be considered in post-menopausal women and men age >/= 50 years with a: * Hip or vertebral fracture, or * T-score of * Ten-year fracture probability by FRAX of: * >/= 20% for major osteoporotic fractures or * >/= 3% for hip fractures All treatment decisions require clinical judgement and consideration of individual patient factors, including patient preferences, comorbidities, previous drug use, risk factors not captured in the FRAX registered model (e.g., frailty, falls, vitamin D deficiency, increased bone turnover, interval significant decline in bone density) and possible under- or over-estimation of fracture risk by FRAX. Electronically signed By Zena Perez DO 07/16/2023 3:01:18 PM EST Workstation ID : [id number] Bale Opener: CHITRA Transcribe Date/Time: Jul 16 2023 3:01P Dictated by : ZENA PEREZ, This examination was interpreted and the report reviewed and electronically signed by: ZENA PEREZ, on Jul 16 2023 3:01PM [facility] Radiology Study observation (narrative) [facility] DXA Skeletal system.axial Vi ews for bone densityOrdered By: [facility] Provider on 07-16-2023 [facility] Laboratory - Chemistry and C hemistry - challengeon 07-01-2023 Albumin [Mass/Vol] 4.8 g/dL Normal 3.6 - 5.1 g/dL [facility], [facility].; [facility], [employer]. Albumin/Globulin [Mass ratio] 1.7 {ratio} Normal 1.0 - 2.5 [facility] [employer] [employer] [facility], [employer]. ALP [Catalytic activity/Vol] 96 U/L Normal 37 - 153 U/L [place] [employer], [facility].; [employer] ALT [Catalytic activity/Vol] 33 U/L Abnormal 6 - 29 U/L [employer], [facility].; [employer] [employer] AST [Catalytic activity/Vol] 28 U/L Normal 10 - 35 U/L [employer], [facility].; [employer], [employer]. Bilirubin [Mass/Vol] 0.7 mg/dL Normal 0.2 - 1 .2 mg/dL [employer], [facility].; [employer], [employer]. Calcium [Mass/Vol] 10.1 mg/dL Normal 8.6 - 10. 4 mg/dL [facility], [employer], [employer]. Chloride [Moles/Vol] 105 mmol/L Normal 98 - 11 0 mmol/L [employer], [facility].; [employer] [employer] Cholesterol [Mass/Vol] 254 mg/dL Abnormal [employer], [employer], [employer]. Cholesterol in HDL [Mass/Vol] 70 mg/dL Normal [facility].; [facility] [employer] [employer]. Cholesterol in LDL [Mass/Vol] 160 mg/dL Abnormal [facility].; [place] [employer] [employer]. CO2 [Moles/Vol] 26 mmol/L Normal 20 - 32 mmol/L [facility], [facility].; [place] [employer], [employer]. Creatinine [Mass/Vol] 0.90 mg/dL Normal 0.50 - 1.05 mg/dL [facility].; [place], [facility]. GFR/1.73 sq M.predicted among non-blacks MDRD (S/P/Bld) [Vol rate/Area] 71 mL/min/{1.73_m2} Normal [facility], [facility].; [place] [employer], [employer]. Glucose [Mass/Vol] 94 mg/dL Normal 65 - 99 mg/dL [facility], [facility].; [employer], [employer]. Potassium [Moles/Vol] 4.5 mmol/L Normal 3.5 - 5.3 mmol/L [facility].; [facility] [employer], [employer]. Protein [Mass/Vol] 7.6 g/dL Normal 6.1 - 8.1 g/dL [place] [facility], [facility].; [employer], [employer]. Sodium [Moles/Vol] 141 mmol/L Normal 135 - 146 mmol/L [facility].; [employer], [employer]. Triglyceride [Mass/Vol] 119 mg/dL Normal [place] [employer], [facility].; [employer], [employer]. TSH Qn 1.86 m[IU]/L Normal 0.40 - 4.50 {mIU/L} [facility].; [employer], [employer]. Urea nitrogen [Mass/Vol] 17 mg/dL Normal 7 - 25 mg/dL [place] [employer], [employer]. No Panel Informationon 07-01 BUN/CREATININE RATIO SEE NOTE: Normal 6 - 22 [facility] [employer] CHOL/HDLC RATIO 3.6 Normal [place] [employer] [facility].; [employer], [employer]. GLOBULIN 2.8 Normal 1.9 - 3.7 [place] [facility] [employer] [employer] NON HDL CHOLESTEROL 184 Abnormal [facility], [facility].; [facility], Inc[employer] VITAMIN D,25-OH,TOTAL,IA 39 ng/mL Normal 30 - 100 ng/mL [facility], [facility].; [place] [facility], [employer] 254 mg/dL Abnormal [facility], [facility] [employer] 70 mg/dL Normal [place] [facility], [facility] [place] [employer] 119 mg/dL Normal [place] [facility], [facility].; [facility] [employer] 160 Abnormal [place] [facility], [facility].; [place] [employer] 3.6 Normal [place] [facility], [facility].; [place] [employer] 184 Abnormal [place] [facility], [facility].; [facility] [employer] 94 mg/dL Normal 65 - 99 mg/dL [facility], [facility] [employer] 17 mg/dL Normal 7 - 25 mg/dL [place] [facility], [facility].; [facility] [employer] 0.90 mg/dL Normal 0.50 - 1.05 mg/dL [place] [facility], [facility].; [employer] 71 Normal [place] [employer], [employer] SEE NOTE: Normal 6 - 22 [place] [employer] [employer] 141 mmol/L Normal 135 - 146 mmol/L [place] [facility], [facility].; [facility] [employer] 4.5 mmol/L Normal 3.5 - 5.3 mmol/L [place] [facility], [facility].; [facility] [employer] 105 mmol/L Normal 98 - 110 mmol/L [place] [employer] [employer] [employer], [employer] 26 mmol/L Normal 20 - 32 mmol/L [place] [employer] [employer] [employer] 10.1 mg/dL Normal 8.6 - 10.4 mg/dL [place] [facility], Inc.; [employer] 7.6 g/dL Normal 6.1 - 8.1 g/dL [place] [facility], Inc.; [employer] 4.8 g/dL Normal 3.6 - 5.1 g/dL [facility] [employer] [employer] 2.8 Normal 1.9 - 3.7 [employer], [employer] 1.7 Normal 1.0 - 2.5 [facility], [employer] [employer] 0.7 mg/dL Normal 0.2 - 1.2 mg/dL [employer], [employer] [employer] 96 U/L Normal 37 - 153 U/L [employer], [employer] [employer] 28 U/L Normal 10 - 35 U/L [employer], [employer] [employer] 33 U/L Abnormal 6 - 29 U/L [employer], [employer] [employer] 1.86 {mIU/L} Normal 0.40 - 4.50 {mIU/L} [employer], [employer] 39 ng/mL Normal 30 - 100 ng/mL [employer] [employer] [employer] AKOSUA SCREENING W TOMOon 03-14 [facility] HPV,CtNg Age Gdon 10-10-2022 . . Normal [facility] Comment on above: Order Comment: Speci men Comment: [id number] Specimen Comment: No. of containers..01 ThinPrep Vial Performed By: #### L 801.8800 #### [place] [address] Age Gdln ACOG 30-65 Normal . [facility] Comment on above: Order Comment: Speci men Comment: [id number] Specimen Comment: No. of containers..01 ThinPrep Vial Performed By: #### L 801.8800 #### [place] [address] Diagnosis: Normal [facility] Comment on above: Order Comment: Speci men Comment: [id number] Specimen Comment: No. of containers..01 ThinPrep Vial Result Comment: NEGA TIVE FOR INTRAEPITHELIAL LESION OR MALIGNANCY. Performed By: #### L 801.8800 #### [place] [address] HPV Aptima Negative Normal Negative [facility] Comment on above: Order Comment: Speci men Comment: [id number] Specimen Comment: No. of containers..01 ThinPrep Vial Result Comment: This nucleic acid amplification test detects fourteen high- risk HPV types (16,18,31,33,35,39,45,51,52,56,58,59,66,68) without differentiation. Performed By: #### L 801.8800 #### [place] [address] HPV Radha Reflex [facility] Comment on above: Order Comment: Speci men Comment: [id number] Specimen Comment: No. of containers..01 ThinPrep Vial Result Comment: Crit eria not met, HPV Genotype not performed. Performed at: = - [address] [id number] Modeling Analyst: Radha Odonnell MD, Phone: [phone] Performed at: [address] [id number] Modeling Analyst: Radha Odonnell MD, Phone: [phone] Performed By: #### L [id number] #### [place] [address] Note: [facility] Comment on above: Order Comment: Speci men Comment: [id number] Specimen Comment: No. of containers..01 ThinPrep Vial Result Comment: The Pap smear is a screening test designed to aid in the detection of premalignant and malignant conditions of the uterine cervix. It is not a diagnostic procedure and should not be used as the sole means of detecting cervical cancer. Both false-positive and false-negative reports do occur. Performed By: #### L 801.8800 #### [place] [address] Performed by: [facility] Comment on above: Order Comment: Speci men Comment: [id number] Specimen Comment: No. of containers..01 ThinPrep Vial Result Comment: Mariajose Najera, Auxiliary Equipment Tender (ASCP) Performed By: #### L [id number] #### [place] [address] Spec adequacy: [facility] Comment on above: Order Comment: Speci men Comment: [id number] Specimen Comment: No. of containers..01 ThinPrep Vial Result Comment: Sati sfactory for evaluation. Endocervical and/or squamous metaplastic cells (endocervical component) are present. Performed By: #### L 801.8800 #### [place] [address] Test Methodlogy Normal [facility] Comment on above: Order Comment: Speci men Comment: [id number] Specimen Comment: No. of containers..01 ThinPrep Vial Result Comment: This liquid based ThinPrep(R) pap test was screened with the use of an image guided system. Performed By: #### L 801.8800 #### [place] [address] Laboratory - Chemistry and C hemistry - challengeon 05-16-2022 Albumin [Mass/Vol] 4.7 g/dL Normal 3.6 - 5.1 g/dL [place] [facility], [facility].; [employer], [employer]. Albumin/Globulin [Mass ratio] 1.9 {ratio} Normal 1.0 - 2.5 [place] [employer], [facility].; [employer], [employer]. ALP [Catalytic activity/Vol] 102 U/L Normal 37 - 153 U/L [employer], [employer].; [employer], [employer]. ALT [Catalytic activity/Vol] 33 U/L Abnormal 6 - 29 U/L [employer], [employer].; [employer] AST [Catalytic activity/Vol] 24 U/L Normal 10 - 35 U/L [employer], [employer].; [employer], [employer]. Bilirubin [Mass/Vol] 0.7 mg/dL Normal 0.2 - 1 .2 mg/dL [employer], [employer].; [employer], [employer] Calcium [Mass/Vol] 9.7 mg/dL Normal 8.6 - 10. 4 mg/dL [employer], [employer].; [employer], [employer] Chloride [Moles/Vol] 103 mmol/L Normal 98 - 11 0 mmol/L [employer], Inc.; [employer], [employer] Cholesterol [Mass/Vol] 244 mg/dL Abnormal [employer], [employer].; [employer], [employer] Cholesterol in HDL [Mass/Vol] 72 mg/dL Normal [facility], [facility].; [facility]. Cholesterol in LDL [Mass/Vol] 153 mg/dL Abnormal [facility], [facility]. CO2 [Moles/Vol] 26 mmol/L Normal 20 - 32 mmol/L [facility], [facility].; [facility], [facility]. Creatinine [Mass/Vol] 1.01 mg/dL Normal 0.50 - 1.05 mg/dL [facility], [facility].; [facility], [facility]. GFR/1.73 sq M.predicted among non-blacks MDRD (S/P/Bld) [Vol rate/Area] 62 mL/min/{1.73_m2} Normal [facility], [facility].; [facility], [facility]. Glucose [Mass/Vol] 92 mg/dL Normal 65 - 99 mg/dL [facility], [facility].; [place] [facility], [facility]. Potassium [Moles/Vol] 4.0 mmol/L Normal 3.5 - 5.3 mmol/L [facility].; [place] [facility], [facility]. Protein [Mass/Vol] 7.2 g/dL Normal 6.1 - 8.1 g/dL [facility], [facility].; [place] [facility], [facility]. Sodium [Moles/Vol] 139 mmol/L Normal 135 - 146 mmol/L [facility].; [place] [facility], [facility]. Triglyceride [Mass/Vol] 82 mg/dL Normal [facility], [facility].; [place] [facility], [facility]. TSH Qn 2.04 m[IU]/L Normal 0.40 - 4.50 {mIU/L} [facility], [facility].; [place] [facility], [facility]. Urea nitrogen [Mass/Vol] 18 mg/dL Normal 7 - 25 mg/dL [facility], [facility].; [place] [facility], [facility]. No Panel Informationon 05-16 BUN/CREATININE RATIO NOT APPLICABLE Normal 6 - 22 [facility].; [place] [employer], [employer] CHOL/HDLC RATIO 3.4 Normal [facility], [facility].; [place] [employer], [employer]. GLOBULIN 2.5 Normal 1.9 - 3.7 [facility].; [place] [facility], [facility] NON HDL CHOLESTEROL 172 Abnormal [facility], Inc.; [employer], [employer]. 244 mg/dL Abnormal [place] [facility], Inc.; [employer], [employer] 72 mg/dL Normal [facility], Inc.; [facility], Inc. 82 mg/dL Normal [facility] [employer], Inc.; [employer], Inc[employer] 153 Abnormal [facility] [employer], Inc.; [employer], [employer] 3.4 Normal [place] [employer], Inc.; [employer], [employer]. 172 Abnormal [place] [employer], Inc.; [employer], [employer] 2.04 {mIU/L} Normal 0.40 - 4.50 {mIU/L} [place] [facility], Inc.; [employer], [employer] 92 mg/dL Normal 65 - 99 mg/dL [place] [facility], Inc.; [employer], [employer]. 18 mg/dL Normal 7 - 25 mg/dL [facility] [employer], Inc.; [employer], [employer]. 1.01 mg/dL Normal 0.50 - 1.05 mg/dL [facility] [employer], Inc.; [employer], [employer] 62 Normal [facility] [employer], Inc.; [employer], [employer] NOT APPLICABLE Normal 6 - 22 [place] [employer], Inc.; [employer], [employer] 139 mmol/L Normal 135 - 146 mmol/L [place] [employer], Inc.; [employer], [employer]. 4.0 mmol/L Normal 3.5 - 5.3 mmol/L [place] [employer], Inc.; [employer], [employer] 103 mmol/L Normal 98 - 110 mmol/L [facility] [employer], Inc.; [employer], Inc. 26 mmol/L Normal 20 - 32 mmol/L [facility] [employer], Inc.; [employer], [employer]. 9.7 mg/dL Normal 8.6 - 10.4 mg/dL Harris [employer], Inc.; [employer], Inc[employer] 7.2 g/dL Normal 6.1 - 8.1 g/dL Harris [employer], Inc.; [employer] 4.7 g/dL Normal 3.6 - 5.1 g/dL Harris [employer], Inc.; [employer], Inc[employer] 2.5 Normal 1.9 - 3.7 [facility], Inc.; [facility], Inc. 1.9 Normal 1.0 - 2.5 [facility], Inc.; [facility], Inc. 0.7 mg/dL Normal 0.2 - 1.2 mg/dL [facility], Inc.; [facility], Inc. 102 U/L Normal 37 - 153 U/L [facility], Inc.; [facility], Inc. 24 U/L Normal 10 - 35 U/L [facility], Inc.; [place] [facility], Inc. 33 U/L Abnormal 6 - 29 U/L [facility], Inc.; [place] [facility], Inc. AKOSUA SCREENING W TOMOon 02-15 [facility] SCREEN DIGITAL BREAST TOMOon 02-15-2022 SCREEN DIGITAL BREAST [place] [address] Name: EVELYN CALLE Phys: JOSELUIS MARTINEZ M.D. : 59 Age: 66 Sex: F Acct: [id number] Loc: RAD MAMM Exam Date: 02/15/22 Status: REG CLI Radiology No.: Unit Number: [id number] Exam # Type/Exam [id number] MAMMO / SCREEN DIGITAL BREAST [place] #[id number] - SCREEN DIGITAL BREAST [place] BILATERAL DIGITAL SCREENING MAMMOGRAM 3D/2D WITH CAD: 02/15/2022 CLINICAL: Annual Screening. Comparison is made to exams dated: 01/26/2021 mammogram - [facility] and 01/21/2020 mammogram - [facility]. There are scattered fibroglandular elements in both breasts. Current study was also evaluated with a Computer Aided Detection (CAD) system. No significant masses, calcifications, or other findings are seen in either breast. There has been no significant interval change. IMPRESSION: NEGATIVE There is no mammographic evidence of malignancy. A 1 year return mammogram is recommended.(02/16/2023) The patient was notified of the results. Electronically signed by: Rhoda buchanan/[email or web address]:02/15/2022 11:28:57 Hi Lift Operator(s): Reena Landry, RT(R)(M), [facility] BI-RADS: 1 Negative REPORT SIGNATURE ON FILE Reported By: RHODA ALLEN M.D. << Signature on File>> Reported By: RHODA ALLEN M.D. Signed By: RHODA ALLEN M.D. Tests performed at: [address] [address] Normal [facility] Laboratory - Chemistry and C hemistry - challengeon 11-03-2021 Bilirubin Ql (U) Negative Normal [employer].; [employer]. Ketones Ql (U) Negative Normal [employer].; [employer], [employer]. pH (U) 6.5 [pH] Normal [employer].; [employer], [employer]. Specific gravity (U) [Rel density] <1.005 Normal [employer].; [employer]. Urobilinogen Qn (U) 0.2 mg/dL Normal [employer].; [employer]. Laboratory - Hematology and Cell countson 11-03-2021 Hemoglobin Ql (U) Negative Normal [employer].; [employer], [employer]. Laboratory - Specimen inform ationon 11-03-2021 Appearance (U) clear Normal [employer].; [employer], [employer]. Color (U) yellow Normal [employer].; [employer], [employer]. Laboratory - Urinalysison Glucose Test strip (U) [Mass/Vol] Negative Normal [employer].; [employer], [employer] Leukocyte esterase Test strip Ql (U) Negative Normal [employer].; [employer], [employer]. Nitrite Ql (U) Negative Normal [employer].; [employer], [employer]. Protein Ql (U) Negative Normal [employer].; [employer], [employer]. No Panel Informationon 11-03 CULTURE, URINE, ROUTINE SEE NOTE Normal [employer].; [employer], [employer]. SEE NOTE Normal [employer], [employer].; [facility]. Laboratory - Chemistry and C hemistry - challengeon 04-04-2021 Albumin [Mass/Vol] 4.6 g/dL Normal 3.6 - 5.1 g/dL [facility], [facility].; [facility], [facility]. Albumin/Globulin [Mass ratio] 1.8 {ratio} Normal 1.0 - 2.5 [facility], [facility]. ALP [Catalytic activity/Vol] 91 U/L Normal 37 - 153 U/L [facility].; [facility], [facility]. ALT [Catalytic activity/Vol] 30 U/L Abnormal 6 - 29 U/L [facility].; [facility], [facility]. AST [Catalytic activity/Vol] 23 U/L Normal 10 - 35 U/L [facility], [facility].; [place] [facility], [facility]. Bilirubin [Mass/Vol] 0.8 mg/dL Normal 0.2 - 1 .2 mg/dL [facility].; [place] [facility], [employer]. Calcium [Mass/Vol] 9.8 mg/dL Normal 8.6 - 10. 4 mg/dL [facility].; [place] [facility], [facility]. Chloride [Moles/Vol] 105 mmol/L Normal 98 - 11 0 mmol/L [facility].; [place] [facility], [employer]. Cholesterol [Mass/Vol] 256 mg/dL Abnormal [facility].; [place] [facility], [facility]. Cholesterol in HDL [Mass/Vol] 67 mg/dL Normal [facility].; [place] [facility], [facility]. Cholesterol in LDL [Mass/Vol] 169 mg/dL Abnormal [facility].; [place] [facility], [facility]. CO2 [Moles/Vol] 24 mmol/L Normal 20 - 32 mmol/L [facility].; [place] [facility], [facility]. Creatinine [Mass/Vol] 0.88 mg/dL Normal 0.50 - 0.99 mg/dL [facility], [facility].; [place] [facility], [facility]. GFR/1.73 sq M.predicted among blacks MDRD (S/P/Bld) [Vol rate/Area] 80 mL/min/{1.73_m2} Normal [facility], [facility].; [place] [facility], [facility]. Glucose [Mass/Vol] 89 mg/dL Normal 65 - 99 mg/dL [facility].; [place] [facility], [facility]. Potassium [Moles/Vol] 4.2 mmol/L Normal 3.5 - 5.3 mmol/L [facility], [facility].; [place] [facility], [facility]. Protein [Mass/Vol] 7.1 g/dL Normal 6.1 - 8.1 g/dL [place] [facility], [facility].; [employer], [employer] Sodium [Moles/Vol] 140 mmol/L Normal 135 - 146 mmol/L [facility], [facility].; [place] [facility], [facility]. Triglyceride [Mass/Vol] 93 mg/dL Normal [place] [facility], [facility].; [place] [facility], [employer]. TSH Qn 0.93 m[IU]/L Normal 0.40 - 4.50 {mIU/L} [place] [facility], [facility].; [place] [employer], [employer]. Urea nitrogen [Mass/Vol] 16 mg/dL Normal 7 - 25 mg/dL [facility].; [employer], [facility]. No Panel Informationon 04-04 BUN/CREATININE RATIO NOT APPLICABLE Normal - [facility].; [place] [employer], [employer]. CHOL/HDLC RATIO 3.8 Normal [place] [facility].; [employer], [employer] eGFR NON-AFR. ALGERIAN 69 Normal [place] [facility].; [employer]. GLOBULIN 2.5 Normal 1.9 - 3.7 [place] [facility].; [employer], Inc[employer] NON HDL CHOLESTEROL 189 Abnormal [facility], [facility].; [employer], [employer] 256 mg/dL Abnormal [place] [employer] [facility].; [employer], [employer] 67 mg/dL Normal [place] [employer] [facility].; [place] [employer], [employer] 93 mg/dL Normal [facility] [employer], [facility].; [employer], [employer] 169 Abnormal [employer], Inc.; [employer], Inc[employer] 3.8 Normal [place] [employer].; [employer], [employer] 189 Abnormal [employer].; [facility], Inc[employer] 89 mg/dL Normal 65 - 99 mg/dL [facility], Inc.; [employer], [employer] 16 mg/dL Normal 7 - 25 mg/dL [facility], Inc.; [place] [employer], [employer] 0.88 mg/dL Normal 0.50 - 0.99 mg/dL [facility], Inc.; [employer], [employer] 69 Normal [facility], Inc.; [employer], [employer] 80 Normal [place] [facility], Inc.; [employer], [employer]. NOT APPLICABLE Normal 6 - 22 [place] [facility], Inc.; [employer], [employer] 140 mmol/L Normal 135 - 146 mmol/L [place] [facility], Inc.; [employer], [employer]. 4.2 mmol/L Normal 3.5 - 5.3 mmol/L [place] [facility], Inc.; [employer], [employer]. 105 mmol/L Normal 98 - 110 mmol/L [facility], Inc.; [employer], [employer]. 24 mmol/L Normal 20 - 32 mmol/L [place] [facility], Inc.; [employer], [employer] 9.8 mg/dL Normal 8.6 - 10.4 mg/dL [place] [facility], Inc.; [employer], [employer] 7.1 g/dL Normal 6.1 - 8.1 g/dL [facility], Inc.; [employer] 4.6 g/dL Normal 3.6 - 5.1 g/dL [place] [facility], Inc.; [employer], [employer] 2.5 Normal 1.9 - 3.7 [place] [facility], Inc.; [employer] 1.8 Normal 1.0 - 2.5 [place] [employer], [employer].; [employer], [employer] 0.8 mg/dL Normal 0.2 - 1.2 mg/dL [place] [facility], Inc.; [employer], [employer] 91 U/L Normal 37 - 153 U/L [place] [facility], Inc.; [employer], [employer] 23 U/L Normal 10 - 35 U/L [place] [facility], Inc.; [employer], [employer] 30 U/L Abnormal 6 - 29 U/L [employer].; [employer]. 0.93 {mIU/L} Normal 0.40 - 4.50 {mIU/L} [employer].; [employer]. No Panel Informationon 01-26 [facility] Laboratory - Chemistry and C hemistry - challengeon 03-30-2020 Bilirubin Ql (U) Negative Normal [employer].; [employer]. Ketones Ql (U) Negative Normal [employer].; [employer]. pH (U) 6.0 [pH] Normal [employer].; [employer]. Specific gravity (U) [Rel density] 1.020 Normal [employer], Inc.; [employer] Urobilinogen Qn (U) 0.2 mg/dL Normal [facility].; [employer]. Laboratory - Hematology and Cell countson 03-30-2020 Hemoglobin Ql (U) Moderate Abnormal [employer].; [employer]. Laboratory - Specimen inform ationon 03-30-2020 Appearance (U) Clear Normal [employer], Inc.; [employer]. Color (U) Yellow Normal [employer].; [employer]. Laboratory - Urinalysison Glucose Test strip (U) [Mass/Vol] Negative Normal [employer].; [employer]. Leukocyte esterase Test strip Ql (U) Small Abnormal [employer].; [employer]. Nitrite Ql (U) Positive Abnormal [employer].; [employer]. Protein Ql (U) 30 mg/dL Abnormal [employer].; [employer]. No Panel Informationon 03-30 CULTURE, URINE, ROUTINE SEE NOTE Abnormal [employer].; [employer]. SEE NOTE Abnormal [employer].; [employer]. Laboratory - Chemistry and C hemistry - challengeon 02-29-2020 Albumin [Mass/Vol] 5.0 g/dL Normal 3.6 - 5.1 g/dL [facility].; [facility], [facility]. Albumin/Globulin [Mass ratio] 1.9 {ratio} Normal 1.0 - 2.5 [facility].; [facility], [facility]. ALP [Catalytic activity/Vol] 102 U/L Normal 37 - 153 U/L [facility], [facility].; [facility], [facility]. ALT [Catalytic activity/Vol] 29 U/L Normal 6 - 29 U/L [facility].; [facility], [facility]. AST [Catalytic activity/Vol] 24 U/L Normal 10 - 35 U/L [facility], [facility].; [facility], [facility]. Bilirubin [Mass/Vol] 0.6 mg/dL Normal 0.2 - 1 .2 mg/dL [facility].; [place] [facility], [facility]. Calcium [Mass/Vol] 10.2 mg/dL Normal 8.6 - 10. 4 mg/dL [facility], [facility].; [place] [facility], [facility]. Chloride [Moles/Vol] 104 mmol/L Normal 98 - 11 0 mmol/L [facility].; [place] [facility], [facility]. Cholesterol [Mass/Vol] 253 mg/dL Abnormal [facility].; [facility], [facility]. Cholesterol in HDL [Mass/Vol] 67 mg/dL Normal [facility].; [place] [facility], [facility]. Cholesterol in LDL [Mass/Vol] 159 mg/dL Abnormal [facility], [facility].; [place] [facility], [facility]. CO2 [Moles/Vol] 28 mmol/L Normal 20 - 32 mmol/L [facility].; [place] [employer], [facility]. Creatinine [Mass/Vol] 1.01 mg/dL Abnormal 0.50 - 0.99 mg/dL [facility], [facility].; [place] [facility], [facility]. GFR/1.73 sq M.predicted among blacks MDRD (S/P/Bld) [Vol rate/Area] 69 mL/min/{1.73_m2} Normal [facility], [facility].; [place] [employer] Glucose [Mass/Vol] 89 mg/dL Normal 65 - 99 mg/dL [facility], [facility].; [facility], [facility]. Potassium [Moles/Vol] 4.0 mmol/L Normal 3.5 - 5.3 mmol/L [facility].; [place] [facility]. Protein [Mass/Vol] 7.7 g/dL Normal 6.1 - 8.1 g/dL [facility].; [place] [facility], [employer]. Sodium [Moles/Vol] 140 mmol/L Normal 135 - 146 mmol/L [facility].; [place] [facility], [employer]. Triglyceride [Mass/Vol] 144 mg/dL Normal [place] [facility].; [place] [facility], [facility]. TSH Qn 2.26 m[IU]/L Normal 0.40 - 4.50 {mIU/L} [place] [facility].; [place] [facility], [employer]. Urea nitrogen [Mass/Vol] 18 mg/dL Normal 7 - 25 mg/dL [place] [facility] Health Care.; [place] [employer], [employer]. Urea nitrogen/Creatinine [Mass ratio] 18 mg/mg Normal 6 - 22 [place] [facility].; [place] [facility]. No Panel Informationon 02-28 CHOL/HDLC RATIO 3.8 Normal [place] [facility].; [facility] [employer], [employer]. eGFR NON-AFR. ALGERIAN 60 Normal [place] [facility].; [place] [employer]. GLOBULIN 2.7 Normal 1.9 - 3.7 [place] [facility].; [facility] [employer], [employer]. NON HDL CHOLESTEROL 186 Abnormal [facility].; [place] [employer]. 253 mg/dL Abnormal [place] [employer] [facility].; [employer]. 67 mg/dL Normal [place] [employer] [facility].; [employer]. 144 mg/dL Normal [place] [employer].; [employer]. 159 Abnormal [facility] [employer].; [facility] [employer], [employer]. 3.8 Normal [place] [employer].; [facility] [employer], [employer] 186 Abnormal [place] [employer].; [place] [employer], [employer] 2.26 {mIU/L} Normal 0.40 - 4.50 {mIU/L} [place] [employer].; [facility] 89 mg/dL Normal 65 - 99 mg/dL [place] [facility], [facility].; [facility] 18 mg/dL Normal 7 - 25 mg/dL [place] [facility], [facility].; [facility] 1.01 mg/dL Abnormal 0.50 - 0.99 mg/dL [place] [facility], [facility].; [facility] [facility] 60 Normal [place] [employer], [employer].; [facility] 69 Normal [place] [employer], [employer].; [facility]. 18 Normal 6 - 22 [place] [facility], [facility].; [employer], [employer] 140 mmol/L Normal 135 - 146 mmol/L [place] [facility], [facility].; [employer], [employer] 4.0 mmol/L Normal 3.5 - 5.3 mmol/L [place] [facility], Inc.; [employer], [employer] 104 mmol/L Normal 98 - 110 mmol/L [place] [facility], [facility].; [employer], [employer] 28 mmol/L Normal 20 - 32 mmol/L [place] [facility], Inc.; [employer], [employer] 10.2 mg/dL Normal 8.6 - 10.4 mg/dL [place] [facility], [facility].; [facility] 7.7 g/dL Normal 6.1 - 8.1 g/dL [place] [facility], [facility].; [facility] 5.0 g/dL Normal 3.6 - 5.1 g/dL [place] [facility], Inc.; [facility] [facility] 2.7 Normal 1.9 - 3.7 [place] [facility], Inc.; [facility] 1.9 Normal 1.0 - 2.5 [place] [employer], [employer].; [facility] 0.6 mg/dL Normal 0.2 - 1.2 mg/dL [place] [employer], [employer].; [facility] [employer], [employer] 102 U/L Normal 37 - 153 U/L [place] [facility], Inc.; [facility] Inc[employer] 24 U/L Normal 10 - 35 U/L [place] [employer], [employer].; [employer], [employer] 29 U/L Normal 6 - 29 U/L [place] [facility], Inc.; [employer], Inc. Otheron 01-21-2020 [facility] Laboratory - Cytologyon 01-11 Microscopic observation Cyto stain Nom (Cvx) SEE NOTE Normal HarrisArd[employer]x.; [employer], [employer]. Laboratory - Chemistry and C hemistry - challengeon 01-20-2019 25-hydroxyvitamin D3 [Mass/Vol] 47 ng/mL Normal 30 - 100 ng/mL HarrisIntransa, [employer].; [employer], [employer]. Albumin [Mass/Vol] 4.6 g/dL Normal 3.6 - 5.1 g/dL HarrisArdelyx.; [employer], [employer]. Albumin/Globulin [Mass ratio] 1.7 {ratio} Normal 1.0 - 2.5 [employer].; [employer], [employer]. ALP [Catalytic activity/Vol] 95 U/L Normal 33 - 130 U/L HarrisIntransa, [employer].; [employer], [employer]. ALT [Catalytic activity/Vol] 23 U/L Normal 6 - 29 U/L [employer].; [employer], [employer]. AST [Catalytic activity/Vol] 22 U/L Normal 10 - 35 U/L HarrisIntransa, [employer].; [employer], [employer]. Bilirubin [Mass/Vol] 0.6 mg/dL Normal 0.2 - 1 .2 mg/dL HarrisIntransa, [employer].; [employer], [employer]. Calcium [Mass/Vol] 9.7 mg/dL Normal 8.6 - 10. 4 mg/dL HarrisIntransa, [employer].; [employer], [employer]. Calcium [Mass/Vol] 9.8 mg/dL Normal 8.6 - 10. 4 mg/dL HarrisIntransa, [employer].; [employer], [employer]. Chloride [Moles/Vol] 104 mmol/L Normal 98 - 11 0 mmol/L HarrisIntransa, [employer].; [employer], [employer]. Cholesterol [Mass/Vol] 230 mg/dL Abnormal HarrisIntransa, Inc.; [employer], Inc. Cholesterol in HDL [Mass/Vol] 70 mg/dL Normal HarrisIn[employer]a, [employer].; [employer], [employer]. Cholesterol in LDL [Mass/Vol] 137 mg/dL Abnormal 0 - 100 mg/dL [employer].; [facility]. Cholesterol non HDL [Mass/Vol] 161 mg/dL Abnormal [facility].; [facility], [facility]. Cholesterol.total/Ch olesterol in HDL [Mass ratio] 3.3 {ratio} Normal [facility], [facility]. CO2 [Moles/Vol] 25 mmol/L Normal 20 - 32 mmol/L [facility].; [facility], [facility]. Creatinine [Mass/Vol] 0.95 mg/dL Normal 0.50 - 0.99 mg/dL [facility], [facility].; [facility], [facility]. GFR/1.73 sq M.predicted among blacks MDRD (S/P/Bld) [Vol rate/Area] 75 {ML/MIN/1.73M2} Normal [facility].; [facility], [facility]. GFR/1.73 sq M.predicted MDRD (S/P/Bld) [Vol rate/Area] 65 {ML/MIN/1.73M2} Normal [facility].; [facility], [facility]. Globulin (S) [Mass/Vol] 2.7 g/dL Normal 1.9 - 3.7 g/dL [facility].; [facility], [facility]. Glucose [Mass/Vol] 83 mg/dL Normal 65 - 99 mg/dL [facility], [facility].; [facility], [facility]. Parathyrin.intact [Mass/Vol] 50 pg/mL Normal 14 - 64 pg/mL [facility].; [facility], [facility]. Potassium [Moles/Vol] 3.9 mmol/L Normal 3.5 - 5.3 mmol/L [facility], [facility].; [facility], [facility]. Protein [Mass/Vol] 7.3 g/dL Normal 6.1 - 8.1 g/dL [facility], [facility].; [facility], [facility]. Sodium [Moles/Vol] 138 mmol/L Normal 135 - 146 mmol/L [facility], [facility].; [facility], [facility]. Triglyceride [Mass/Vol] 117 mg/dL Normal [facility].; [facility]. TSH Qn 1.67 m[IU]/L Normal 0.40 - 4.50 {mIU/L} [employer].; [employer]. Urea nitrogen [Mass/Vol] 16 mg/dL Normal 7 - 25 mg/dL HarrisArdelyx.; [employer]. Urea nitrogen/Creatinine [Mass ratio] 16.3 mg/mg Normal 6 - 22 [employer].; [employer]. Laboratory - Chemistry and C hemistry - challengeon 10-23-2018 Bilirubin Ql (U) Negative Normal [employer]elyx.; [employer]. Ketones Ql (U) Negative Normal Harris[employer]elyx.; [employer]. pH (U) 6.0 [pH] Normal Harris[employer]x.; [employer]. Specific gravity (U) [Rel density] 1.015 Normal HarrisBrainpark; [employer] Urobilinogen Qn (U) 0.2 mg/dL Normal [facility] [employer]; [employer]. Laboratory - Hematology and Cell countson 10-23-2018 Hemoglobin Ql (U) Negative Normal [employer].; [employer]. Laboratory - Specimen inform ationon 10-23-2018 Appearance (U) clear Normal [employer]park; [employer]. Color (U) yellow Normal [employer]; [employer]. Laboratory - Urinalysison Glucose Test strip (U) [Mass/Vol] Negative Normal [employer]x.; [employer]. Leukocyte esterase Test strip Ql (U) Negative Normal [employer].; [employer]. Nitrite Ql (U) Negative Normal Harris[employer]x.; [employer]. Protein Ql (U) Negative Normal HarirsArdelyx.; [employer]. Laboratory - Chemistry and C hemistry - challengeon 06-05-2018 Cholesterol [Mass/Vol] 239 mg/dL Abnormal 0 - 200 mg/dL [employer]; [employer]. Cholesterol in HDL [Mass or moles/Vol] 65 mg/dL Abnormal 40 - 60 mg/dL [facility].; [employer]x Cholesterol in LDL [Mass/Vol] 155 mg/dL Abnormal 0 - 129 mg/dL [facility].; [facility]. Cholesterol.total/Ch olesterol in HDL [Mass ratio] 3.7 {ratio} Normal 0.0 - 5.0 [facility].; HarrisArdelyx Lipid 1996 panel LIPID PROFILE Normal [facility].; [employer]. Triglyceride [Mass/Vol] 94 mg/dL Normal 0 - 150 mg/dL [place] [facility].; [employer]. Laboratory - Chemistry and C hemistry - challengeon 02-27-2018 Bilirubin Ql (U) Negative Normal [place] [employer]; [employer]. Ketones Ql (U) Negative Normal [place] [facility].; [employer]. pH (U) 6.5 [pH] Normal Harris[employer]elyx.; [employer]. Specific gravity (U) [Rel density] 1.010 Normal [facility] [employer]; [employer] Urobilinogen Qn (U) 0.2 mg/dL Normal [facility]; [employer]. Laboratory - Hematology and Cell countson 02-27-2018 Hemoglobin Ql (U) Negative Normal [place] [facility].; HarrisAr[employer]x Laboratory - Microbiology an d Antimicrobial susceptibilityon 02-27-2018 Bacteria identified Cx Nom (U) CULTURE URINE Normal [employer]; [employer]. Laboratory - Specimen inform ationon 02-27-2018 Appearance (U) clear Normal [employer]; [employer]. Color (U) yellow Normal Harris[employer].; [employer]. Laboratory - Urinalysison Glucose Test strip (U) [Mass/Vol] Negative Normal [facility] [employer].; [employer]. Leukocyte esterase Test strip Ql (U) Negative Normal [employer].; [employer]. Nitrite Ql (U) Negative Normal [place] [employer].; [employer]. Protein Ql (U) Negative Normal [place] [employer].; [employer]. Laboratory - Chemistry and C hemistry - challengeon 02-20-2018 Bilirubin Ql (U) Negative Normal [place] [facility].; [employer]. Ketones Ql (U) Negative Normal [place] [employer].; [employer]. pH (U) 5.5 [pH] Normal [facility] [employer].; [employer]. Specific gravity (U) [Rel density] 1.020 Normal [facility] [employer]; [employer]. Urobilinogen Qn (U) 0.2 mg/dL Normal [facility].; Harris[employer]. Laboratory - Hematology and Cell countson 02-20-2018 Hemoglobin Ql (U) moderate Abnormal [place] [employer].; [employer]. Laboratory - Microbiology an d Antimicrobial susceptibilityon 02-20-2018 Bacteria identified Cx Nom (U) CULTURE URINE Normal [place] [facility] HospitalAmerican [facility] [employer]; [employer]. Laboratory - Specimen inform ationon 02-20-2018 Appearance (U) cloudy Abnormal [place] [employer]; [employer]. Color (U) yellow Normal [facility].; [employer]. Laboratory - Urinalysison Glucose Test strip (U) [Mass/Vol] Negative Normal [place] [employer].; [employer]. Leukocyte esterase Test strip Ql (U) moderate Abnormal [place] [employer].; [employer]. Nitrite Ql (U) Negative Normal Harris[employer].; [employer]. Protein Ql (U) 30 mg/dL Abnormal Harris[employer].; [employer]. Laboratory - Chemistry and C hemistry - challengeon 01-15-2018 Bilirubin Ql (U) Negative Normal [facility] [employer].; [employer]. Ketones Ql (U) Negative Normal [facility] [employer].; [employer]. pH (U) 6.0 [pH] Normal [facility].; [employer]. Specific gravity (U) [Rel density] 1.010 Normal [facility] [employer]; HarrisArdelyx Urobilinogen Qn (U) 0.2 mg/dL Normal [facility].; [employer]. Laboratory - Hematology and Cell countson 01-15-2018 Hemoglobin Ql (U) Negative Normal [facility].; HarrisAr[employer]x Laboratory - Microbiology an d Antimicrobial susceptibilityon 01-15-2018 Bacteria identified Cx Nom (U) CULTURE URINE Normal [facility].; HarrisAr[employer]x Laboratory - Specimen inform ationon 01-15-2018 Appearance (U) clear Normal [facility]; Harris[employer] Color (U) yellow Normal [place] [facility] Hospital[facility] [employer]; HarrisArdelyx Laboratory - Urinalysison Glucose Test strip (U) [Mass/Vol] Negative Normal [facility] [employer]; [employer]. Leukocyte esterase Test strip Ql (U) trace Normal [place] [employer]; [employer]. Nitrite Ql (U) Negative Normal [place] [facility] Hospital[facility] [employer]; [employer]. Protein Ql (U) Negative Normal [place] [facility].; [employer]. Laboratory - Chemistry and C hemistry - challengeon 05-23-2017 Albumin [Mass/Vol] 4.5 g/dL Normal 3.4 - 4.8 g/dL [facility]; [employer]. Albumin [Mass/Vol] 1.7 g/dL Abnormal 0.9 - 1.6 [place] [employer].; [employer]. ALP [Catalytic activity/Vol] 85 U/L Normal 38 - 126 U/L [place] [facility].; [employer]. ALT [Catalytic activity/Vol] 33 U/L Normal 8 - 35 U/L [place] [facility].; [employer]. Anion gap [Moles/Vol] 9 mmol/L Abnormal 10 - 20 mmol/L [facility].; [facility]. AST [Catalytic activity/Vol] 29 U/L Normal 13 - 39 U/L [facility] Bilirubin [Mass/Vol] 0.5 mg/dL Normal 0.0 - 1 .5 mg/dL [facility], [facility]. Calcium [Mass/Vol] 9.5 mg/dL Normal 8.6 - 10. 2 mg/dL [facility] Chloride [Moles/Vol] 105 mmol/L Normal 98 - 10 7 mmol/L [facility]; [facility] Cholesterol [Mass/Vol] 210 mg/dL Abnormal 0 - 200 mg/dL [facility]; [facility] Cholesterol in HDL [Mass or moles/Vol] 62 mg/dL Abnormal 40 - 60 mg/dL [facility]; [facility], [facility] Cholesterol in LDL [Mass/Vol] 134 mg/dL Abnormal 0 - 129 mg/dL [facility], [facility] Cholesterol.total/Ch olesterol in HDL [Mass ratio] 3.4 {ratio} Normal 0.0 - 5.0 [facility]; [facility], [facility]. CO2 [Moles/Vol] 29.0 mmol/L Normal 21.0 - 31.0 mmol/L [facility]; [facility], [facility] Comprehensive metabolic 2000 panel CMP with eGFR Normal [facility]; [facility], [facility] Creatinine [Mass/Vol] 0.9 mg/dL Normal 0.6 - 1.2 mg/dL [facility], [facility]. GFR/1.73 sq M.predicted among blacks MDRD (S/P/Bld) [Vol rate/Area] mL/min/{1.73_m2} Normal 60 - 999 {ML/MINUTE } [facility], [facility]. GFR/1.73 sq M.predicted MDRD (S/P/Bld) [Vol rate/Area] mL/min/{1.73_m2} Normal 60 - 999 {ML/MINUTE } [facility] [employer]. Globulin (S) [Mass/Vol] 2.7 g/dL Normal 1.5 - 3.8 g/dL [place] [facility].; [employer]. Glucose [Mass/Vol] 95 mg/dL Normal 74 - 106 mg/dL [place] [facility].; [employer]. Lipid 1996 panel LIPID PROFILE Normal [facility].; [employer] Potassium [Moles/Vol] 4.2 mmol/L Normal 3.5 - 5.1 mmol/L [place] [facility].; [employer]. Protein [Mass/Vol] 7.2 g/dL Normal 6.4 - 8.3 g/dL [place] [facility].; HarrisIn[employer]a, [employer]. Sodium [Moles/Vol] 139 mmol/L Normal 136 - 145 mmol/L [place] [facility].; [employer]. Triglyceride [Mass/Vol] 72 mg/dL Normal 0 - 150 mg/dL [place] [employer].; [employer]. Urea nitrogen [Mass/Vol] 18 mg/dL Normal 6 - 20 mg/dL [place] [employer].; [employer]. Urea nitrogen/Creatinine [Mass ratio] 20 {ratio} Normal 0 - 30 {ratio} [place] [employer].; [employer]. No Panel Informationon 05-23 AGE 62 {years} Normal [place] [facility].; [employer]. 9 mmol/L Abnormal 10 - 20 mmol/L [place] [employer].; [employer]. 62 {years} Normal HarrisArd[employer].; [employer]. Laboratory - Chemistry and C hemistry - challengeon 03-22-2017 Bilirubin Ql (U) Negative Normal [facility] [employer].; Harris[employer]. Ketones Ql (U) Negative Normal HarrisArdelyx.; [employer], [employer]. pH (U) 6.5 [pH] Normal [facility].; [employer]. Specific gravity (U) [Rel density] 1.015 Normal [employer].; [employer]. Urobilinogen Qn (U) 0.2 mg/dL Normal [facility].; [employer]Ar[employer]x Laboratory - Hematology and Cell countson 03-22-2017 Hemoglobin Ql (U) Negative Normal [facility] [employer].; [employer]. Laboratory - Microbiology an d Antimicrobial susceptibilityon 03-22-2017 Bacteria identified Cx Nom (U) CULTURE URINE Normal [facility].; [employer]. Laboratory - Specimen inform ationon 03-22-2017 Appearance (U) clear Normal [facility] [employer]; Harris[employer]x Color (U) yellow Normal [place] [facility] Hospital[facility] [employer]; [employer]. Laboratory - Urinalysison Glucose Test strip (U) [Mass/Vol] Negative Normal [facility].; [employer]Ar[employer]x Leukocyte esterase Test strip Ql (U) Negative Normal [place] [facility].; [employer]. Nitrite Ql (U) Negative Normal [place] [facility].; [employer]. Protein Ql (U) Negative Normal [place] [employer].; [employer]. Laboratory - Chemistry and C hemistry - challengeon 06-07-2016 Albumin [Mass/Vol] 4.2 g/dL Normal 3.4 - 4.8 g/dL [facility]; [employer]. Albumin [Mass/Vol] 1.6 g/dL Normal 0.9 - 1.6 [place] [facility].; [employer]. ALP [Catalytic activity/Vol] 82 U/L Normal 38 - 126 U/L [place] [facility].; [employer]. ALT [Catalytic activity/Vol] 28 U/L Normal 8 - 35 U/L [place] [employer].; AhrrisAr[employer]. Anion gap [Moles/Vol] 12 mmol/L Normal 10 - 20 mmol/L [place] [facility].; HrarisArdelyx. AST [Catalytic activity/Vol] 23 U/L Normal 13 - 39 U/L [facility].; [employer]. Bilirubin [Mass/Vol] 0.6 mg/dL Normal 0.0 - 1 .5 mg/dL [facility], [facility] Calcium [Mass/Vol] 9.5 mg/dL Normal 8.6 - 10. 2 mg/dL [facility], [facility]. Chloride [Moles/Vol] 104 mmol/L Normal 98 - 10 7 mmol/L [facility] Cholesterol [Mass/Vol] 223 mg/dL Abnormal 0 - 200 mg/dL [facility], [facility]. Cholesterol in HDL [Mass or moles/Vol] 57 mg/dL Normal 40 - 60 mg/dL [facility]; [facility], [facility] Cholesterol in LDL [Mass/Vol] 152 mg/dL Abnormal 0 - 129 mg/dL [facility], [facility] Cholesterol.total/Ch olesterol in HDL [Mass ratio] 3.9 {ratio} Normal 0.0 - 5.0 [facility]; [facility], [facility] CO2 [Moles/Vol] 28.0 mmol/L Normal 21.0 - 31.0 mmol/L [facility]; [facility], [facility]. Comprehensive metabolic 2000 panel CMP with eGFR Normal [facility]; [facility], [facility] Creatinine [Mass/Vol] 0.9 mg/dL Normal 0.6 - 1.2 mg/dL [facility], [facility]. GFR/1.73 sq M.predicted among blacks MDRD (S/P/Bld) [Vol rate/Area] mL/min/{1.73_m2} Normal 60 - 999 {ML/MINUTE } [facility], [facility].; [facility], [facility]. GFR/1.73 sq M.predicted MDRD (S/P/Bld) [Vol rate/Area] mL/min/{1.73_m2} Normal 60 - 999 {ML/MINUTE } [facility], [facility].; [facility], [facility]. Globulin (S) [Mass/Vol] 2.6 g/dL Normal 1.5 - 3.8 g/dL [facility].; [facility]. Glucose [Mass/Vol] 83 mg/dL Normal 74 - 106 mg/dL [facility].; [place] [facility] Lipid 1996 panel LIPID PROFILE Normal [facility].; [place] [facility] Potassium [Moles/Vol] 4.1 mmol/L Normal 3.5 - 5.1 mmol/L [facility].; [place] [facility] Protein [Mass/Vol] 6.8 g/dL Normal 6.4 - 8.3 g/dL [facility].; [place] [facility] Sodium [Moles/Vol] 140 mmol/L Normal 136 - 145 mmol/L [facility].; [place] [facility]. Triglyceride [Mass/Vol] 69 mg/dL Normal 0 - 150 mg/dL [facility].; [place] [employer] Urea nitrogen [Mass/Vol] 21 mg/dL Abnormal 6 - 20 mg/dL [facility]; [place] [employer] [facility]. Urea nitrogen/Creatinine [Mass ratio] 23 {ratio} Normal 0 - 30 {ratio} [facility].; [place] [employer] No Panel Informationon 06-07 AGE 61 {years} Normal [facility]; [place] [employer] 12 mmol/L Normal 10 - 20 mmol/L [facility].; [place] [employer]. 61 {years} Normal [facility] [facility]; [place] [employer] [facility] Laboratory - Chemistry and C hemistry - challengeon 05-11-2014 Albumin [Mass/Vol] 4.5 g/dL Normal 3.4 - 4.8 g/dL [facility] [place] [employer]. Albumin [Mass/Vol] 1.9 g/dL Abnormal 0.9 - 1.6 [facility] [employer]. ALP [Catalytic activity/Vol] 55 U/L Normal 38 - 126 U/L [facility].; [employer]. ALT [Catalytic activity/Vol] 19 U/L Normal 8 - 35 U/L [facility] AST [Catalytic activity/Vol] 19 U/L Normal 13 - 39 U/L [facility], [facility]. Bilirubin [Mass/Vol] 0.5 mg/dL Normal 0.0 - 1 .5 mg/dL [facility], [facility] Calcium [Mass/Vol] 9.5 mg/dL Normal 8.6 - 10. 2 mg/dL [facility], [facility] Chloride [Moles/Vol] 107 mmol/L Normal 98 - 10 7 mmol/L [facility], [facility] Cholesterol [Mass/Vol] 197 mg/dL Normal 0 - 200 mg/dL [facility], [facility]. Cholesterol in HDL [Mass or moles/Vol] 53 mg/dL Normal 40 - 60 mg/dL [facility], [facility] Cholesterol in LDL [Mass/Vol] 129 mg/dL Normal 0 - 129 mg/dL [facility], [facility] Cholesterol.total/Ch olesterol in HDL [Mass ratio] 3.7 {ratio} Normal 0.0 - 5.0 [facility]; [facility], [facility]. CO2 [Moles/Vol] 25.0 mmol/L Normal 13.0 - 29.0 mmol/L [facility], [facility] Comprehensive metabolic 2000 panel CMP with eGFR Normal [facility], [facility] Creatinine [Mass/Vol] 0.9 mg/dL Normal 0.6 - 1.2 mg/dL [facility], [facility]. GFR/1.73 sq M.predicted among blacks MDRD (S/P/Bld) [Vol rate/Area] mL/min/{1.73_m2} Normal 60 - 999 {ML/MINUTE } [facility], [facility].; [facility], [facility]. GFR/1.73 sq M.predicted MDRD (S/P/Bld) [Vol rate/Area] mL/min/{1.73_m2} Normal 60 - 999 {ML/MINUTE } [facility].; [place] [facility]. Globulin (S) [Mass/Vol] 2.4 g/dL Normal 1.5 - 3.8 g/dL [facility].; [place] [facility]. Glucose [Mass/Vol] 87 mg/dL Normal 74 - 106 mg/dL [facility].; [place] [facility]. Lipase [Catalytic activity/Vol] 18.0 U/L Normal 18.0 - 51.0 U/L [facility].; [place] [employer] [facility] Lipid 1996 panel LIPID PROFILE Normal [facility].; [place] [facility] Potassium [Moles/Vol] 4.4 mmol/L Normal 3.5 - 5.1 mmol/L [facility].; [employer]. Protein [Mass/Vol] 6.9 g/dL Normal 6.4 - 8.3 g/dL [facility].; [employer]. Sodium [Moles/Vol] 139 mmol/L Normal 136 - 145 mmol/L [facility].; [employer]. Triglyceride [Mass/Vol] 76 mg/dL Normal 0 - 150 mg/dL [place] [facility].; [employer]. Urea nitrogen [Mass/Vol] 14 mg/dL Normal 6 - 20 mg/dL [place] [facility].; [employer]. Urea nitrogen/Creatinine [Mass ratio] 16 {ratio} Normal 0 - 30 {ratio} [place] [facility].; [employer] No Panel Informationon 05-11 AGE 59 {years} Normal [place] [facility].; [employer]. 59 {years} Normal [place] [facility].; [employer]. Laboratory - Chemistry and C hemistry - challengeon 09-04-2013 Bilirubin Ql (U) Negative Normal [place] [employer]. Ketones Ql (U) Negative Normal [place] [facility].; [employer]. pH (U) 6 [pH] Abnormal [place] [employer] [facility].; [employer]. Specific gravity (U) [Rel density] >1.030 Normal [employer]. Laboratory - Hematology and Cell countson 09-04-2013 Hemoglobin Ql (U) Negative Normal [employer]. Laboratory - Microbiology an d Antimicrobial susceptibilityon 09-04-2013 Bacteria identified Cx Nom (U) Normal [employer]. Laboratory - Specimen inform ationon 09-04-2013 Appearance (U) Clear Normal [employer]. Color (U) Yellow Normal [employer].; [employer]. Specimen source Nom (Unsp spec) URINE-NOT GIVEN Normal [employer]. Laboratory - Urinalysison Glucose Test strip (U) [Mass/Vol] Negative Normal [employer]. Leukocyte esterase Test strip Ql (U) Small Abnormal [employer].; [employer]. Nitrite Ql (U) Negative Normal [employer].; [employer]. Protein Ql (U) trace Normal [employer]. No Panel Informationon 09-04 UA - UROBILINOGEN 0.2 mg/dL Normal [employer]. 0.2 mg/dL Normal [employer]. Laboratory - Chemistry and C hemistry - challengeon 08-28-2013 Bilirubin Ql (U) Negative Normal [employer].; [employer]. Ketones Ql (U) Negative Normal [employer].; [employer]. pH (U) 6 [pH] Abnormal [employer]. Specific gravity (U) [Rel density] 1.010 Normal [employer]. Laboratory - Hematology and Cell countson 08-28-2013 Hemoglobin Ql (U) Negative Normal [employer]. Laboratory - Specimen inform ationon 08-28-2013 Appearance (U) Clear Normal [employer].; [employer]. Color (U) Yellow Normal [employer]. Laboratory - Urinalysison Glucose Test strip (U) [Mass/Vol] Negative Normal [employer].; [employer]. Leukocyte esterase Test strip Ql (U) Trace Normal [employer].; [employer], [employer]. Nitrite Ql (U) Negative Normal [employer].; [employer], [employer]. Protein Ql (U) Negative Normal [employer].; [employer]. No Panel Informationon 08-28 UA - UROBILINOGEN 0.2 mg/dL Normal [employer].; [employer], [employer]. 0.2 mg/dL Normal [employer].; [employer]. Laboratory - Chemistry and C hemistry - challengeon 05-01-2012 25-hydroxyvitamin D3 [Mass/Vol] 47 ng/mL Normal 30 - 100 ng/mL [place] [employer].; [employer], [employer]. Albumin [Mass/Vol] 4.6 g/dL Normal 3.6 - 5.1 g/dL [employer].; [employer], [employer]. Albumin/Globulin [Mass ratio] 1.5 {ratio} Normal 1.0 - 2.1 [employer].; [employer]. ALP [Catalytic activity/Vol] 80 U/L Normal 33 - 130 U/L [employer].; [employer], [employer]. ALT [Catalytic activity/Vol] 26 U/L Normal 6 - 40 U/L [employer].; [employer], [employer]. AST [Catalytic activity/Vol] 29 U/L Normal 10 - 35 U/L [employer].; [employer], [employer]. Bilirubin [Mass/Vol] 0.6 mg/dL Normal 0.2 - 1 .2 mg/dL [employer].; [employer], [employer]. Calcium [Mass/Vol] 9.7 mg/dL Normal 8.6 - 10. 4 mg/dL [facility].; [facility]. Chloride [Moles/Vol] 105 mmol/L Normal 98 - 11 0 mmol/L [facility], [facility]. Cholesterol [Mass/Vol] 209 mg/dL Abnormal 125 - 200 mg/dL [facility], [facility].; [facility], [facility]. Cholesterol in HDL [Mass/Vol] 61 mg/dL Normal [facility], [facility]. Cholesterol in LDL [Mass/Vol] 132 mg/dL Abnormal [facility], [facility]. Cholesterol non HDL [Mass/Vol] 148 mg/dL Normal [facility].; [facility], [facility]. Cholesterol.total/Ch olesterol in HDL [Mass ratio] 3.4 {ratio} Normal [facility] [place] [facility] CO2 [Moles/Vol] 27 mmol/L Normal 21 - 33 mmol/L [facility].; [facility], [facility]. Creatinine [Mass/Vol] 1.02 mg/dL Normal 0.50 - 1.05 mg/dL [facility], [facility].; [facility], [facility]. GFR/1.73 sq M.predicted among blacks MDRD (S/P/Bld) [Vol rate/Area] 72 {ML/MIN/1.73M2} Normal [facility], [facility].; [facility], [facility]. GFR/1.73 sq M.predicted MDRD (S/P/Bld) [Vol rate/Area] 62 {ML/MIN/1.73M2} Normal [facility].; [place] [facility], [facility]. Globulin (S) [Mass/Vol] 3.1 g/dL Normal 2.2 - 3.9 g/dL [facility].; [place] [facility], [facility]. Glucose [Mass/Vol] 84 mg/dL Normal 65 - 99 mg/dL [facility], [facility].; [place] [facility], [facility]. Potassium [Moles/Vol] 4.3 mmol/L Normal 3.5 - 5.3 mmol/L [facility].; [facility], [facility]. Protein [Mass/Vol] 7.7 g/dL Normal 6.2 - 8.3 g/dL [facility]. Sodium [Moles/Vol] 140 mmol/L Normal 135 - 146 mmol/L [facility], [facility]. Triglyceride [Mass/Vol] 78 mg/dL Normal [facility], [facility] Urea nitrogen [Mass/Vol] 24 mg/dL Normal 7 - 25 mg/dL [facility], [facility] Urea nitrogen/Creatinine [Mass ratio] 23.0 mg/mg Abnormal 6 - [facility] Vitamin D2 [Mass/Vol] <4 Normal [facility]; [facility] Vitamin D3 [Mass/Vol] 47 ng/mL Normal [facility] [place] [facility], [facility] Laboratory - Chemistry and C hemistry - challengeon 10-21-2011 Cholesterol [Mass/Vol] 192 mg/dL Normal 0 - 200 mg/dL [facility]. Cholesterol in HDL [Mass/Vol] 57 mg/dL Normal 40 - 60 mg/dL [facility].; [facility], [facility]. Cholesterol in LDL [Mass/Vol] 120 mg/dL Normal 50.0 - 130.0 mg/dL [facility], [facility]. Cholesterol in VLDL [Mass/Vol] 15 mg/dL Normal [facility] [place] [facility], [facility]. Triglyceride [Mass/Vol] 74 mg/dL Normal 40 - 150 mg/dL [facility].; [place] [facility], [facility]. Laboratory - Chemistry and C hemistry - challengeon 05-03-2011 Albumin [Mass/Vol] 4.5 g/dL Normal 3.6 - 5.1 g/dL [facility].; [facility], [facility]. Albumin/Globulin [Mass ratio] 1.6 {ratio} Normal 1.0 - 2.1 [facility].; [place] [facility] ALP [Catalytic activity/Vol] 85 U/L Normal 33 - 130 U/L [facility].; [facility]. ALT [Catalytic activity/Vol] 47 U/L Abnormal 6 - 40 U/L [facility].; [facility], [facility]. AST [Catalytic activity/Vol] 27 U/L Normal 10 - 35 U/L [facility].; [place] [facility], [facility]. Bilirubin [Mass/Vol] 0.6 mg/dL Normal 0.2 - 1 .2 mg/dL [facility].; [facility]. Calcium [Mass/Vol] 9.4 mg/dL Normal 8.6 - 10. 2 mg/dL [facility], [facility]. Chloride [Moles/Vol] 104 mmol/L Normal 98 - 11 0 mmol/L [facility].; [place] [facility], [facility]. Cholesterol [Mass/Vol] 215 mg/dL Abnormal 125 - 200 mg/dL [facility].; [facility], [facility]. Cholesterol in HDL [Mass/Vol] 66 mg/dL Normal [facility].; [facility]. Cholesterol in LDL [Mass/Vol] 131 mg/dL Abnormal [facility].; [place] [facility]. Cholesterol.total/Ch olesterol in HDL [Mass ratio] 3.3 {ratio} Normal [facility].; [place] [facility] [facility], [employer]. CO2 [Moles/Vol] 25 mmol/L Normal 21 - 33 mmol/L [facility].; [facility], [facility]. Creatinine [Mass/Vol] 0.76 mg/dL Normal 0.60 - 1.10 mg/dL [facility].; [place] [facility] [facility], [facility]. GFR/1.73 sq M.predicted among blacks MDRD (S/P/Bld) [Vol rate/Area] 103 {ML/MIN/1.73M2} Normal [facility].; [facility], [facility]. GFR/1.73 sq M.predicted MDRD (S/P/Bld) [Vol rate/Area] 89 {ML/MIN/1.73M2} Normal [facility].; [place] [facility] [facility], [facility]. Globulin (S) [Mass/Vol] 2.9 g/dL Normal 2.2 - 3.9 g/dL [facility] Glucose [Mass/Vol] 85 mg/dL Normal 65 - 99 mg/dL [facility] Potassium [Moles/Vol] 4.2 mmol/L Normal 3.5 - 5.3 mmol/L [facility] Protein [Mass/Vol] 7.4 g/dL Normal 6.2 - 8.3 g/dL [facility] Sodium [Moles/Vol] 139 mmol/L Normal 135 - 146 mmol/L [facility]; [facility] Triglyceride [Mass/Vol] 91 mg/dL Normal [facility]; [facility] Urea nitrogen [Mass/Vol] 14 mg/dL Normal 7 - 25 mg/dL [facility]; [place] [facility] Urea nitrogen/Creatinine [Mass ratio] 18.9 mg/mg Normal 6 - 22 [facility]; [place] [facility] Laboratory - Chemistry and C hemistry - challengeon 09-07-2010 Bilirubin Ql (U) Negative Normal [facility]; [place] [facility] [facility]. Ketones Ql (U) Negative Normal [facility].; [place] [facility] pH (U) 5.0 [pH] Normal 4.6 - 8.0 [facility].; [place] [employer] [facility] Specific gravity (U) [Rel density] 1.010 Normal 1.001 - 1.025 [facility]; [place] [employer] [facility]. Laboratory - Hematology and Cell countson 09-07-2010 Hemoglobin Ql (U) trace Normal [facility].; [place] [employer] [facility]. Laboratory - Specimen inform ationon 09-07-2010 Appearance (U) clear Normal [facility].; [employer] Color (U) yellow Normal [facility].; [place] [employer] [facility] Laboratory - Urinalysison Glucose Test strip (U) [Mass/Vol] Negative Normal [place] [facility].; [employer]. Leukocyte esterase Test strip Ql (U) Negative Normal [place] [employer]. Nitrite Ql (U) Negative Normal [place] [employer].; [employer]. Protein Ql (U) Negative Normal [place].; [employer]. No Panel Informationon 09-07 UA - UROBILINOGEN 0.2 mg/dL Normal [place] [employer] [facility].; [employer]. 0.2 mg/dL Normal [employer].; [employer]. Laboratory - Chemistry and C hemistry - challengeon 08-24-2010 Bilirubin Ql (U) Negative Normal [place] [employer] [facility].; [employer]. Ketones Ql (U) Negative Normal [place] [employer].; [employer]. pH (U) 7.0 [pH] Normal 4.6 - 8.0 [employer].; [employer]. Specific gravity (U) [Rel density] 1.005 Normal 1.001 - 1.025 [employer].; [employer]. Laboratory - Hematology and Cell countson 08-24-2010 Hemoglobin Ql (U) Negative Normal [employer].; [employer]. Laboratory - Microbiology an d Antimicrobial susceptibilityon 08-24-2010 Bacteria identified Cx Nom (U) SEE NOTE Normal [employer].; [employer]. Laboratory - Specimen inform ationon 08-24-2010 Appearance (U) clear Normal [employer].; [employer]. Color (U) yellow Normal [employer].; [employer]. Specimen source Nom (Unsp spec) URINE-VOID Normal [employer]; [employer]. Laboratory - Urinalysison Glucose Test strip (U) [Mass/Vol] Negative Normal [employer].; [employer]. Leukocyte esterase Test strip Ql (U) Negative Normal [employer].; [employer]. Nitrite Ql (U) Negative Normal [facility] [employer] Protein Ql (U) Negative Normal [facility].; [employer] No Panel InformationOrdered By: Margarita Colón on 08-24-2010 UA - UROBILINOGEN 0.2 mg/dL Normal [place] [facility], [employer].; [employer] Work Phone: 0.2 mg/dL Normal [place] [employer] Work Phone: [employer]Y BRAND DESIGNER, CONVERTEDon [facility] CYTOLOGY BRAND DESIGNER, CONVERTEDon [facility] Vital Signs Date Time Vital Sign Value Performing Clinician Facility 05-04-2025 09:17-0400 Body height 154.94 cm Maddy Yao PA Work Phone: [facility] 05-04-2025 09:17-0400 Body mass index (BMI) [Ratio] 29.5 kg/m2 Maddy Yao PA Work Phone: [facility] 05-04-2025 09:17-0400 Body weight 70.76 kg Maddy Yao PA Work Phone: [facility] 05-04-2025 09:17-0400 Diastolic blood pressure 79 mm[Hg] Maddy Yao PA Work Phone: [facility] 05-04-2025 09:17-0400 Heart rate 69 /min Maddy Yao PA Work Phone: [facility] 05-04-2025 09:17-0400 Respiratory rate 17 /min Maddy Yao PA Work Phone: [facility] 05-04-2025 09:17-0400 SaO2% (BldA) [Mass fraction] 100 % Maddy Yao PA Work Phone: [facility] 05-04-2025 09:17-0400 Systolic blood pressure 148 mm[Hg] Maddy Yao PA Work Phone: [facility] 03-17-2025 09:03-0400 Body height 153.67 cm [facility], [facility].; [facility], [facility]. 03-17-2025 09:03-0400 Body mass index (BMI) [Ratio] 29.96 kg/m2 [facility], [facility].; [facility], [facility]. 03-17-2025 09:03-0400 Body surface area Derived from formula 1.69 m2 [facility], [facility].; [facility], [facility]. 03-17-2025 09:03-0400 Body temperature 97 [degF] [facility], [facility].; [facility], [facility]. 03-17-2025 [id number] Body weight 70.76 kg [facility], [facility].; [facility], [facility]. 03-17-2025 09:03-0400 Diastolic blood pressure 77 mm[Hg] [facility], [facility].; [facility], [facility]. 03-17-2025 09:03-0400 Heart rate 56 /min [facility], [facility].; [facility], [facility]. 03-17-2025 09:03-0400 Systolic blood pressure 124 mm[Hg] [facility], [facility].; [facility], [facility]. 10-16-2024 11:11-0500 Body height 153.67 cm Nuris Gonzalez [facility], [facility].; [facility], [facility]. 10-16-2024 11:11-0500 Body mass index (BMI) [Ratio] 29.2 kg/m2 Nuris Gonzalez HOME HEALTH CARE WORKER [facility], [facility].; [facility], [facility]. 10-16-2024 11:11-0500 Body surface area Derived from formula 1.67 m2 Nurispamella Gonzalez HOME HEALTH CARE WORKER [facility], [facility].; [facility], [facility]. 10-16-2024 11:11-0500 Body weight 68.95 kg Nuris Gonzalez [facility], [facility].; [place] [facility], [facility]. 10-16-2024 11:11-0500 Diastolic blood pressure 78 mm[Hg] Nuris Gonzalez HOME HEALTH CARE WORKER [facility] [employer] [facility] [facility] 10-16-2024 11:11-0500 Heart rate 72 /min Nuris Gonzalez HOME HEALTH CARE WORKER [facility] [place], [employer].; [employer] 10-16-2024 11:11-0500 Systolic blood pressure 119 mm[Hg] Nuris Gonzalez [facility], Inc.; [employer] [facility], Inc[facility] 08-17-2024 08:23-0500 Body height 153.67 cm Ana Rosa Taylor Solares [facility], Inc.; Harris GERS [facility], Inc. 08-17-2024 08:23-0500 Body mass index (BMI) [Ratio] 30.35 kg/m2 Ana Rosa Taylor Solares [facility], Inc.; [employer], [employer] 08-17-2024 08:23-0500 Body surface area Derived from formula 1.7 m2 Ana Rosa Solares [facility] GERS [facility], Inc.; [employer] 08-17-2024 08:23-0500 Body weight 71.67 kg Ana Rosa Taylor Solares [facility]ERS [facility], Inc.; [employer], [employer] 08-17-2024 08:23-0500 Diastolic blood pressure 78 mm[Hg] Ana Rosa Taylor Solares LPN [place] GERS [facility], Inc.; [employer], [employer] 08-17-2024 08:23-0500 Heart rate 66 /min Ana Rosa Solares HOME HEALTH CARE WORKER [place] [facility], Inc.; [employer], [employer] 08-17-2024 08:23-0500 Systolic blood pressure 140 mm[Hg] Ana Rosa Vazquez Sujatha HOME HEALTH CARE WORKER [place] [facility], Inc.; [employer], [employer] 07-22-2024 13:18-0500 Body height 153.67 cm Chari [facility], [facility].; [employer], [employer] 07-22-2024 13:18-0500 Body mass index (BMI) [Ratio] 30.08 kg/m2 [facility], Inc.; [employer], [employer]. 07-22-2024 13:18-0500 Body surface area Derived from formula 1.69 m2 [facility] Harris [employer] [facility]. 07-22-2024 13:18-0500 Body weight 71.03 kg [facility].; [employer], [employer] 07-22-2024 13:18-0500 Diastolic blood pressure 67 mm[Hg] [facility].; [employer]. 07-22-2024 13:18-0500 Heart rate 64 /min [facility], [facility].; [employer]. 07-22-2024 13:18-0500 Systolic blood pressure 109 mm[Hg] [facility], Inc.; [employer], [employer]. 07-08-2023 14:07-0500 Body height 155.57 cm Ana Rosa Solares [facility] GERS [facility], Inc.; [employer], [employer]. 07-08-2023 14:07-0500 Body mass index (BMI) [Ratio] 30.36 kg/m2 Ana Rosa Solares HOME HEALTH CARE WORKER [place] [facility]ERS [facility], Inc.; [employer], [employer] 07-08-2023 14:07-0500 Body surface area Derived from formula 1.73 m2 Ana Rosa Solares LPN [place] [employer], [employer], [employer] 07-08-2023 14:07-0500 Body weight 73.48 kg Ana Rosa Solares HOME HEALTH CARE WORKER [place] [employer], [employer].; [employer], [employer]. 07-08-2023 14:07-0500 Diastolic blood pressure 71 mm[Hg] Ana Rosa Solares HOME HEALTH CARE WORKER [employer].; [employer], [employer]. Comment on above: Patient Position: Sitting; Cuff Location : Left Arm; Cuff Size: Standard 07-08-2023 14:07-0500 Heart rate 75 /min Ana Rosa Solares LPN [employer], [employer].; [employer]. Comment on above: Pattern: Regular 07-08-2023 14:07-0500 Systolic blood pressure 121 mm[Hg] Ana Rosa Solares LPN [facility], Inc.; [place] GERS [facility], [employer]. Comment on above: Patient Position: Sitting; Cuff Location : Left Arm; Cuff Size: Standard 12-21-2022 09:03-0400 Body height 155.57 cm Ana Rosa Solares HOME HEALTH CARE WORKER [facility], Inc.; [place] GERS [facility], Inc. 12-21-2022 09:03-0400 Body mass index (BMI) [Ratio] 29.8 kg/m2 Ana Rosa Gutiérrezach [facility], Inc.; [place] [facility]ERS [facility], [facility]. 12-21-2022 09:03-0400 Body surface area Derived from formula 1.72 m2 Ana Rosa Vazquez Sujatha [facility], Inc.; [place] [facility]ERS [facility], [facility]. 12-21-2022 09:03-0400 Body weight 72.12 kg Ana Rosa Vazquez Sujatha [facility], Inc.; [place] [facility]ERS [facility], [facility]. 12-21-2022 09:03-0400 Diastolic blood pressure 81 mm[Hg] Ana Rosa Solares [facility], [facility].; [employer]. Comment on above: Patient Position: Sitting; Cuff Location : Left Arm; Cuff Size: Standard 12-21-2022 09:03-0400 Heart rate 67 /min Ana Rosa Solares [facility], [facility].; Harris [employer], Inc. Comment on above: Pattern: Regular 12-21-2022 09:03-0400 Systolic blood pressure 122 mm[Hg] Ana Rosa Solares [facility], Inc.; [place] [employer]. Comment on above: Patient Position: Sitting; Cuff Location : Left Arm; Cuff Size: Standard 11-21-2022 10:43-0400 Body height 155.57 cm Ana Rosa Solares [facility], [facility].; [place] GERS [facility], [facility]. 11-21-2022 10:43-0400 Body mass index (BMI) [Ratio] 29.8 kg/m2 Ana Rosa Gutiérrezach [facility], Inc.; [place] [employer]. 11-21-2022 10:43-0400 Body surface area Derived from formula 1.72 m2 Ana Rosa Vazquez Sujatha CARVALHO [facility], [facility].; [facility], [facility]. 11-21-2022 10:43-0400 Body weight 72.12 kg Ana Rosa Desaichasity CARVALHO [facility], [facility].; [facility], Inc. 11-21-2022 10:43-0400 Diastolic blood pressure 77 mm[Hg] Ana Rosa Desaichasity CARVALHO [facility], [facility].; [facility], [facility]. Comment on above: Patient Position: Sitting; Cuff Location : Left Arm; Cuff Size: Standard 11-21-2022 10:43-0400 Heart rate 75 /min Ana Rosa Desaichasity CARVALHO [facility], Inc.; [place] [facility]ERS [facility], [facility]. Comment on above: Pattern: Regular 11-21-2022 10:43-0400 Systolic blood pressure 135 mm[Hg] Ana Rosa Desailabach HOME HEALTH CARE WORKER [facility], Inc.; [facility], Inc. Comment on above: Patient Position: Sitting; Cuff Location : Left Arm; Cuff Size: Standard 10-11-2022 09:43-0500 Body weight 71.22 kg Filipe Garcia LPN [facility], [facility].; [facility], [facility]. 10-11-2022 09:43-0500 Diastolic blood pressure 62 mm[Hg] Filipe Garcia LPN [facility], [facility].; [place] GERS [facility], Inc. Comment on above: Patient Position: Sitting; Cuff Location : Left Arm; Cuff Size: Standard 10-11-2022 09:43-0500 Heart rate 69 /min Filipe Garcia LPN [facility], [facility].; Harris [employer], [employer]. Comment on above: Pattern: Regular 10-11-2022 09:43-0500 Systolic blood pressure 118 mm[Hg] Filipe Jose HOME HEALTH CARE WORKER [facility], [facility].; [place] GERS [facility], [employer]. Comment on above: Patient Position: Sitting; Cuff Location : Left Arm; Cuff Size: Standard 08-24-2022 08:54-0500 Body height 155.57 cm Livia Soler RN [facility], [facility].; [facility], [employer]. 08-24-2022 08:54-0500 Body mass index (BMI) [Ratio] 29.05 kg/m2 Livia [facility]. 08-24-2022 08:54-0500 Body surface area Derived from formula 1.7 m2 Livia [facility].; Harris [employer], [employer] 08-24-2022 08:54-0500 Body temperature 98.5 [degF] Livia [facility].; [employer]. Comment on above: Method: Tympanic 08-24-2022 08:54-0500 Body weight 70.31 kg Livia [facility]. 08-24-2022 08:54-0500 Diastolic blood pressure 82 mm[Hg] Livia [facility] [employer]. Comment on above: Patient Position: Sitting; Cuff Location : Left Arm; Cuff Size: Standard 08-24-2022 08:54-0500 Heart rate 75 /min Livia [facility] [employer]. Comment on above: Pattern: Regular 08-24-2022 08:54-0500 Inhaled oxygen concentration 21 % Livia [facility] [employer]. Comment on above: Room air 08-24-2022 08:54-0500 SaO2% (BldA) [Mass fraction] 99 % Livia Soler RN [place] [facility].; [employer]. 08-24-2022 08:54-0500 Systolic blood pressure 125 mm[Hg] Livia Soler RN [place] [facility].; [employer]. Comment on above: Patient Position: Sitting; Cuff Location : Left Arm; Cuff Size: Standard 05-24-2022 14:14-0400 Body height 155.57 cm Ana Rosa [facility]PN [facility] [place] [facility]. 05-24-2022 14:14-0400 Body mass index (BMI) [Ratio] 28.86 kg/m2 Ana Rosa Solares HOME HEALTH CARE WORKER [facility], Inc.; [employer], [employer]. 05-24-2022 14:14-0400 Body surface area Derived from formula 1.7 m2 Ana Rosa Gutiérrezach HOME HEALTH CARE WORKER [facility], Inc.; [employer], Inc. 05-24-2022 14:14-0400 Body weight 69.85 kg Ana Rosa Solares [facility] GERS [facility], Inc.; [employer], [employer]. 05-24-2022 14:14-0400 Diastolic blood pressure 68 mm[Hg] Ana Rosa Solares [facility] GERS [facility], Inc.; [employer], [employer]. Comment on above: Patient Position: Sitting; Cuff Location : Right Arm; Cuff Size: Standard 05-24-2022 14:14-0400 Heart rate 74 /min Ana Rosa Solares [facility], Inc.; [employer], [employer]. Comment on above: Pattern: Regular 05-24-2022 14:14-0400 Systolic blood pressure 115 mm[Hg] Ana Rosa Solares [facility] GERS [facility], Inc.; [employer]. Comment on above: Patient Position: Sitting; Cuff Location : Right Arm; Cuff Size: Standard 05-07-2022 09:31-0400 Body height 155.57 cm Ana Rosa Solares HOME HEALTH CARE WORKER [facility], Inc.; [employer], [employer] 05-07-2022 09:31-0400 Body mass index (BMI) [Ratio] 29.24 kg/m2 Ana Rosa Solares HOME HEALTH CARE WORKER [facility], Inc.; [employer], Inc. 05-07-2022 09:31-0400 Body surface area Derived from formula 1.7 m2 Ana Rosa Solares HOME HEALTH CARE WORKER [place] GERS [facility], Inc.; [employer], [employer]. 05-07-2022 09:31-0400 Body weight 70.76 kg Ana Rosa Solares HOME HEALTH CARE WORKER [place] [facility]ERS [facility], Inc.; [employer], [employer]. 05-07-2022 09:31-0400 Diastolic blood pressure 65 mm[Hg] Ana Rosa Solares [facility] [employer]. Comment on above: Patient Position: Sitting; Cuff Location : Right Arm; Cuff Size: Standard 05-07-2022 09:31-0400 Heart rate 64 /min Ana Rosa Gutiérrezmike CARVALHO [facility], [facility].; [employer]. Comment on above: Pattern: Regular 05-07-2022 09:31-0400 Systolic blood pressure 138 mm[Hg] Ana Rosa Gutiérrezach HOME HEALTH CARE WORKER [facility].; [employer]. Comment on above: Patient Position: Sitting; Cuff Location : Right Arm; Cuff Size: Standard 11-03-2021 10:03040 Body height 155.57 cm Ana Rosa Solares [facility] [place] [facility]. 11-03-2021 10:03040 Body mass index (BMI) [Ratio] 28.67 kg/m2 Ana Rosa Desailabach [facility].; [place] [employer] [facility]. 11-03-2021 10:030400 Body surface area Derived from formula 1.69 m2 Ana Rosa Gutiérrezach HOME HEALTH CARE WORKER [facility].; [employer]. 11-03-2021 10:03-040 Body temperature 98.1 [degF] Ana Rosa Solares HOME HEALTH CARE WORKER [facility].; [employer]. Comment on above: Method: Tympanic 11-03-2021 10:03040 Body weight 69.4 kg Ana Rosa Desailabach HOME HEALTH CARE WORKER [facility].; [employer]. 11-03-2021 10:030400 Diastolic blood pressure 69 mm[Hg] Ana Rosa Solares HOME HEALTH CARE WORKER [place] [employer]. Comment on above: Patient Position: Sitting; Cuff Location : Left Arm; Cuff Size: Standard 11-03-2021 10:03-0400 Heart rate 70 /min Ana Rosa Solares HOME HEALTH CARE WORKER [place] [facility].; [employer]. Comment on above: Pattern: Regular 11-03-2021 10:03-0400 Systolic blood pressure 127 mm[Hg] Ana Rosa Desailabach [facility].; Harris [facility]. Comment on above: Patient Position: Sitting; Cuff Location : Left Arm; Cuff Size: Standard 10-20-2021 09:01-0500 Body height 155.57 cm Ana Rosa Gutiérrezach [facility], [facility].; [facility], [employer]. 10-20-2021 09:01-0500 Body mass index (BMI) [Ratio] 28.49 kg/m2 Ana Rosa Desailabach [facility], [facility].; [facility]. 10-20-2021 09:01-0500 Body surface area Derived from formula 1.69 m2 Ana Rosa Vazquez Sujatha [facility], [facility].; [place] [facility]. 10-20-2021 09:01-0500 Body temperature 97.6 [degF] Ana Rosa Vazquez Sujatha [facility], [facility].; [employer]. Comment on above: Method: Tympanic 10-20-2021 09:01-0500 Body weight 68.95 kg Ana Rosa Solares [facility].; [facility]. 10-20-2021 09:01-0500 Diastolic blood pressure 80 mm[Hg] Ana Rosa Solares [facility], [facility].; [employer]. Comment on above: Patient Position: Sitting; Cuff Location : Right Arm; Cuff Size: Standard 10-20-2021 09:01-0500 Heart rate 71 /min Ana Rosa Desailabach [facility], [facility].; [employer]. Comment on above: Pattern: Regular 10-20-2021 09:01-0500 Systolic blood pressure 130 mm[Hg] Ana Rosa Solares [facility].; [employer]. Comment on above: Patient Position: Sitting; Cuff Location : Right Arm; Cuff Size: Standard 04-21-2021 14:03-0400 Body height 155.57 cm Maddy Yao PA-C Work Phone: [facility].; [place] [facility]. 04-21-2021 14:03-0400 Body mass index (BMI) [Ratio] 27.55 kg/m2 Maddy Arreolaer PA-C Work Phone: [employer]. 04-21-2021 14:03-0400 Body surface area Derived from formula 1.66 m2 Maddy Arreolaer PA-C Work Phone: [employer]. 04-21-2021 14:03-040 Body weight 66.68 kg Maddy Arreolaer PA-C Work Phone: [employer]. 04-21-2021 14:03-040 Diastolic blood pressure 55 mm[Hg] Maddy Arreolaer PA-C Work Phone: [employer]. Comment on above: Patient Position: Sitting; Cuff Location : Left Arm; Cuff Size: Standard 04-21-2021 14:03-0400 Heart rate 67 /min Maddy Arreolaer PA-C Work Phone: [employer]. Comment on above: Pattern: Regular 04-21-2021 14:03-0400 Systolic blood pressure 106 mm[Hg] Maddy Arreolaer PA-C Work Phone: [employer]; [employer]. Comment on above: Patient Position: Sitting; Cuff Location : Left Arm; Cuff Size: Standard 02-14-2021 11:210400 Body height 155.57 cm Zarina Panda LPN [employer].; [employer]. 02-14-2021 11:21-0400 Body mass index (BMI) [Ratio] 27.55 kg/m2 Zarina Panda LPN [employer].; [employer]. 02-14-2021 11:21-0400 Body surface area Derived from formula 1.66 m2 Zarina Panda LPN [employer] [facility].; [employer]. 02-14-2021 11:21-0400 Body weight 66.68 kg Zarina Farzad CARVALHO [facility], [facility].; [facility], [facility]. 02-14-2021 11:21-0400 Diastolic blood pressure 85 mm[Hg] Zarina Panda LPN [facility], [facility].; [place] GERS [facility], [facility]. Comment on above: Patient Position: Sitting; Cuff Location : Left Arm; Cuff Size: Standard 02-14-2021 11:210400 Heart rate 79 /min Zarina Panda LPN [facility], [facility].; [place] GERS [facility], [facility]. Comment on above: Pattern: Regular 02-14-2021 11:210400 Systolic blood pressure 134 mm[Hg] Zarina Panda LPN [facility], [facility].; [place] GERS [facility], [facility]. Comment on above: Patient Position: Sitting; Cuff Location : Left Arm; Cuff Size: Standard 03-30-2020 08:09-0400 Body height 155.57 cm Lachelle Newton LPN [facility], [facility].; [place] GERS [facility], [facility]. 03-30-2020 08:09-0400 Body mass index (BMI) [Ratio] 29.05 kg/m2 Lachelle Newton [facility], [facility].; [facility], [facility]. 03-30-2020 08:09-0400 Body surface area Derived from formula 1.7 m2 Lachelle Newton HOME HEALTH CARE WORKER [facility], [facility].; [place] GERS [facility], [facility]. 03-30-2020 08:09-0400 Body temperature 97.5 [degF] Lachelle Newton HOME HEALTH CARE WORKER [facility], [facility].; [place] GERS [facility], [facility]. Comment on above: Method: Tympanic 03-30-2020 08:09-0400 Body weight 70.31 kg Lachelle Newton HOME HEALTH CARE WORKER [facility], [facility].; [place] GERS [facility], [facility]. 03-30-2020 08:09-0400 Diastolic blood pressure 70 mm[Hg] Lachelle Newton [facility], [facility].; [employer], [facility]. Comment on above: Patient Position: Sitting; Cuff Location : Left Arm; Cuff Size: Standard 03-30-2020 08:09-0400 Heart rate 83 /min Lachelle Newton LPN [facility], Inc.; [place] GERS [facility], [employer]. Comment on above: Pattern: Regular 03-30-2020 08:09-0400 Systolic blood pressure 135 mm[Hg] Lachelle Newton [facility], Inc[facility] Comment on above: Patient Position: Sitting; Cuff Location : Left Arm; Cuff Size: Standard 03-10-2020 11:18-0400 Body height 155.57 cm Gisella Olmedo LPN [facility], Inc.; [facility], Inc[facility] 03-10-2020 11:18-0400 Body mass index (BMI) [Ratio] 29.05 kg/m2 [facility].; [place] GERS [facility], [facility]. 03-10-2020 11:18-0400 Body surface area Derived from formula 1.7 m2 Gisella Olmedo LPN [facility], Inc.; [place] GERS [facility], [employer]. 03-10-2020 11:18-0400 Body weight 70.31 kg Gisella Olmedo LPN [facility], [facility].; [place] [employer] 03-10-2020 11:18-0400 Diastolic blood pressure 57 mm[Hg] Gisella Olmedo LPN [facility], Inc.; Harris GERS [facility], [employer]. Comment on above: Patient Position: Sitting; Cuff Location : Left Arm; Cuff Size: Standard 03-10-2020 11:18-0400 Heart rate 56 /min Gisella Olmedo LPN [facility], Inc.; [employer] Comment on above: Pattern: Regular 03-10-2020 11:18-0400 Systolic blood pressure 112 mm[Hg] Gisella Olmedo LPN [facility], Inc.; [place] [employer], [employer]. Comment on above: Patient Position: Sitting; Cuff Location : Left Arm; Cuff Size: Standard 04-09-2019 11:39-0400 Body height 155.57 cm Gisella Olmedo LPN [facility], Inc.; [employer], [employer]. 04-09-2019 11:39-0400 Body mass index (BMI) [Ratio] 29.42 kg/m2 Gisella Olmedo LPN [facility], Inc.; [employer] 04-09-2019 11:39-0400 Body surface area Derived from formula 1.71 m2 Gisellamitchell Olmedo LPN [place] GERS [facility], Inc.; [employer] 04-09-2019 11:39-0400 Body temperature 99 [degF] Gisella Wegisel CARVALHO [place] GERS [facility], Inc.; [employer] Comment on above: Method: Tympanic 04-09-2019 11:39-0400 Body weight 71.22 kg Gisella Honroio CARVALHO [place] [employer].; [employer] 04-09-2019 11:39-0400 Diastolic blood pressure 89 mm[Hg] Gisella Olmedo LPN [place] [employer] Comment on above: Patient Position: Sitting; Cuff Location : Left Arm; Cuff Size: Standard 04-09-2019 11:39-0400 Heart rate 76 /min Gisella Olmedo LPN [place] [employer] Comment on above: Pattern: Regular 04-09-2019 11:39-0400 Inhaled oxygen concentration 21 % Gisella Olmedo [facility] [employer] Comment on above: Room air 04-09-2019 11:39-0400 SaO2% (BldA) [Mass fraction] 98 % Gisella Olmedo LPN [place] [employer].; [employer], Inc[employer] 04-09-2019 11:39-0400 Systolic blood pressure 128 mm[Hg] Gisella Honorio CARVALHO [employer], [employer]. Comment on above: Patient Position: Sitting; Cuff Location : Left Arm; Cuff Size: Standard 02-05-2019 14:28-0400 Body height 155.57 cm Gisella Olmedo LPN Harris [employer], [employer].; [employer] 02-05-2019 14:28-0400 Body mass index (BMI) [Ratio] 29.61 kg/m2 Gisella Olmedo LPN Harris [employer].; [employer], Inc[employer] 02-05-2019 14:280400 Body surface area Derived from formula 1.71 m2 Gisella Dawngisel CARVALHO [place] GERS [facility], Inc.; [employer], [employer] 02-05-2019 14:280400 Body weight 71.67 kg Gisella Dawngisel CARVALHO [facility], Inc.; [employer], Inc. 02-05-2019 14:28-0400 Diastolic blood pressure 63 mm[Hg] Gisella Dawngisel CARVALHO [place] GERS [facility], Inc.; [employer]. Comment on above: Patient Position: Sitting; Cuff Location : Left Arm; Cuff Size: Standard 02-05-2019 14:280400 Heart rate 78 /min Gisella Wegisel CARVALHO [place] GERS [facility], Inc.; [employer]. Comment on above: Pattern: Regular 02-05-2019 14:280400 Systolic blood pressure 123 mm[Hg] Gisella Dawngisel CARVALHO [place] GERS [facility], Inc.; [employer] Comment on above: Patient Position: Sitting; Cuff Location : Left Arm; Cuff Size: Standard 01-29-2019 13:27-0400 Body height 155.57 cm Gisella Dawngisel CARVALHO [place] GERS [facility], Inc.; [employer], [employer] 01-29-2019 13:27-0400 Body mass index (BMI) [Ratio] 29.61 kg/m2 Gisella Wegisel CARVALHO [place] GERS [facility], Inc.; [employer], [employer] 01-29-2019 13:270400 Body surface area Derived from formula 1.71 m2 Gisella Wegisel CARVALHO [place] [employer], [employer] 01-29-2019 13:270400 Body weight 71.67 kg Gisella Dawngisel CARVALHO [place] [employer], [employer] 01-29-2019 13:27-0400 Diastolic blood pressure 81 mm[Hg] Gisella Wegisel CARVALHO [place] [employer] Comment on above: Patient Position: Sitting; Cuff Location : Left Arm; Cuff Size: Standard 01-29-2019 13:27-0400 Heart rate 66 /min Gisella Dawngisel [employer]OW[employer]N [employer]. Comment on above: Pattern: Regular 01-29-2019 13:27-0400 Systolic blood pressure 117 mm[Hg] Gisella Dawngisel HOME HEALTH CARE WORKER [employer] Comment on above: Patient Position: Sitting; Cuff Location : Left Arm; Cuff Size: Standard 10-23-2018 11:08-0400 Body height 155.57 cm Gisella Dawngisel CARVALHO [employer]. 10-23-2018 11:08-0400 Body mass index (BMI) [Ratio] 29.8 kg/m2 Gisella Dawngisel HOME HEALTH CARE WORKER [employer] 10-23-2018 11:08-0400 Body surface area Derived from formula 1.72 m2 Gisella Wegisel HOME HEALTH CARE WORKER [employer] 10-23-2018 11:08-0400 Body temperature 99.1 [degF] Gisella Dawngisel HOME HEALTH CARE WORKER [employer]. Comment on above: Method: Tympanic 10-23-2018 11:08-0400 Body weight 72.12 kg Gisella Dawngisel CARVALHO [employer] 10-23-2018 11:08-0400 Diastolic blood pressure 63 mm[Hg] Gisella Dawngisel [employer]OW[employer]. Comment on above: Patient Position: Sitting; Cuff Location : Left Arm; Cuff Size: Standard 10-23-2018 11:08-0400 Heart rate 80 /min Gisella Dawngisel [employer]. Comment on above: Pattern: Regular 10-23-2018 11:08-0400 Systolic blood pressure 127 mm[Hg] Gisella Dawngisel HOME HEALTH CARE WORKER [employer]. Comment on above: Patient Position: Sitting; Cuff Location : Left Arm; Cuff Size: Standard 05-29-2018 13:49-0400 Body height 155.57 cm Nichol Emilio Pinedabaugh HOME HEALTH CARE WORKER [place] GERS [facility], Inc.; [employer] 05-29-2018 13:49-0400 Body mass index (BMI) [Ratio] 27.74 kg/m2 Nichol K Mutersbaugh HOME HEALTH CARE WORKER [place] [employer] 05-29-2018 13:49-0400 Body surface area Derived from formula 1.67 m2 Nichol K Mutersbaugh HOME HEALTH CARE WORKER [place] [employer] 05-29-2018 13:49-0400 Body weight 67.13 kg Nichol Emilio Mutsalinabaugh HOME HEALTH CARE WORKER [place] [employer] 05-29-2018 13:49-0400 Diastolic blood pressure 72 mm[Hg] Nichol K Mutersbaugh HOME HEALTH CARE WORKER [place] [employer] Comment on above: Patient Position: Sitting; Cuff Location : Left Arm; Cuff Size: Standard 05-29-2018 13:49-0400 Heart rate 68 /min Nichol Emilio Pinedabaugh HOME HEALTH CARE WORKER [place] [employer] Comment on above: Pattern: Regular 05-29-2018 13:49-0400 Systolic blood pressure 133 mm[Hg] Nichol K Mutersbaugh HOME HEALTH CARE WORKER [place] GERS [facility], Inc.; [employer] Comment on above: Patient Position: Sitting; Cuff Location : Left Arm; Cuff Size: Standard 02-27-2018 13:20-0400 Body height 155.57 cm Gisella Honorio HOME HEALTH CARE WORKER [place] [employer] 02-27-2018 13:20-0400 Body mass index (BMI) [Ratio] 28.3 kg/m2 Gisella Honorio HOME HEALTH CARE WORKER [place] [employer] 02-27-2018 13:20-0400 Body surface area Derived from formula 1.68 m2 Gisella Honorio [facility] GERS [facility], Inc.; [employer] 02-27-2018 13:20-0400 Body weight 68.49 kg Gisella Dawngisel CARVALHO [place] [employer] 02-27-2018 13:20-0400 Diastolic blood pressure 84 mm[Hg] Gisella Dawngisel CARVALHO [place] GERS [facility], Inc.; [employer] Comment on above: Patient Position: Sitting; Cuff Location : Left Arm; Cuff Size: Standard 02-27-2018 13:20-0400 Heart rate 65 /min Gisella Wegisel CARVALHO [place] [employer] Comment on above: Pattern: Regular 02-27-2018 13:20-0400 Systolic blood pressure 123 mm[Hg] [facility] [employer] Comment on above: Patient Position: Sitting; Cuff Location : Left Arm; Cuff Size: Standard 02-20-2018 13:43-0400 Body height 154.94 cm Gisella Wegisel CARVALHO [place] [employer] 02-20-2018 13:43-0400 Body mass index (BMI) [Ratio] 28.58 kg/m2 Gsiella Wegisel [facility] [employer] 02-20-2018 13:43-0400 Body surface area Derived from formula 1.68 m2 Gisella Lópezgisel HOME HEALTH CARE WORKER [place] [employer] 02-20-2018 13:43-0400 Body temperature 98.5 [degF] Gisella Wegisel CARVALHO [employer], [employer]. Comment on above: Method: Tympanic 02-20-2018 13:43-0400 Body weight 68.61 kg Gisella Wegisel CARVALHO [facility] [employer] 02-20-2018 13:43-0400 Diastolic blood pressure 54 mm[Hg] [facility]isella [facility]isel [facility] [employer] Comment on above: Patient Position: Sitting; Cuff Location : Left Arm; Cuff Size: Standard 02-20-2018 13:43-0400 Heart rate 76 /min Gisella Dawngisel BOWERSN [employer]. Comment on above: Pattern: Regular 02-20-2018 13:43-0400 Systolic blood pressure 101 mm[Hg] Gisella Dawngisel HOME HEALTH CARE WORKER [employer] Comment on above: Patient Position: Sitting; Cuff Location : Left Arm; Cuff Size: Standard 01-15-2018 10:36-0400 Body height 154.94 cm [facility] [employer]. 01-15-2018 10:36-0400 Body mass index (BMI) [Ratio] 29.16 kg/m2 [facility]isella [facility]isel [facility] [employer] 01-15-2018 10:36-0400 Body surface area Derived from formula 1.69 m2 [facility]ella Wegisel [facility] [employer] 01-15-2018 10:36-0400 Body temperature 97.5 [degF] Gisella Sorianoholden [facility] [employer], [employer]. Comment on above: Method: Tympanic 01-15-2018 10:36-0400 Body weight 70 kg Gisella Dawngisel HOME HEALTH CARE WORKER [employer] 01-15-2018 10:36-0400 Diastolic blood pressure 60 mm[Hg] Gisella Dawngisel BOWERSN [employer]. Comment on above: Patient Position: Sitting; Cuff Location : Left Arm; Cuff Size: Standard 01-15-2018 10:36-0400 Heart rate 73 /min Gisella Dawngisel HOME HEALTH CARE WORKER [employer]. Comment on above: Pattern: Regular 01-15-2018 10:36-0400 Systolic blood pressure 119 mm[Hg] Gisella Dawngisel HOME HEALTH CARE WORKER [employer]. Comment on above: Patient Position: Sitting; Cuff Location : Left Arm; Cuff Size: Standard 04-04-2017 10:47-0400 Body height 154.94 cm Desiree Melgar LPN [place] GERS [facility], Inc.; [employer] 04-04-2017 10:47-0400 Body mass index (BMI) [Ratio] 27.78 kg/m2 Desiree Melgar LPN Harris [employer] 04-04-2017 10:47-0400 Body surface area Derived from formula 1.66 m2 Desiree Melgar LPN [place] [employer] 04-04-2017 10:47-0400 Body weight 66.68 kg Desiree Melgar LPN Harris [employer], [employer]. 04-04-2017 10:47-0400 Diastolic blood pressure 77 mm[Hg] Desiree Melgar LPN Harris [employer] Comment on above: Patient Position: Sitting; Cuff Location : Left Arm; Cuff Size: Standard 04-04-2017 10:47-0400 Heart rate 84 /min Desiree Melgar LPN Harris [employer], [employer]. Comment on above: Pattern: Regular 04-04-2017 10:47-0400 Systolic blood pressure 115 mm[Hg] Desiree Melgar LPN Harris [employer], [employer]. Comment on above: Patient Position: Sitting; Cuff Location : Left Arm; Cuff Size: Standard 03-22-2017 09:55-0400 Body height 154.94 cm Gisella Olmedo LPN [place] GERS [facility], Inc.; [employer], [employer]. 03-22-2017 09:55-0400 Body mass index (BMI) [Ratio] 27.78 kg/m2 Gisella Olmedo LPN Harris [employer], [employer]. 03-22-2017 09:55-0400 Body surface area Derived from formula 1.66 m2 Gisella Olmedo LPN Harris [employer], [employer]. 03-22-2017 09:55-0400 Body temperature 98.2 [degF] Gisella Olmedo LPN [facility], Inc.; [facility]Novelty[facility], Inc[facility] Comment on above: Method: Tympanic 03-22-2017 09:55-0400 Body weight 66.68 kg Gisella Honorio CARVALHO [facility], Inc.; [employer], [employer] 03-22-2017 09:55-0400 Diastolic blood pressure 71 mm[Hg] Gisella Olmedo LPN [facility], Inc.; [employer] Comment on above: Patient Position: Sitting; Cuff Location : Left Arm; Cuff Size: Standard 03-22-2017 09:55-0400 Heart rate 72 /min Gisella Olmedo LPN [facility], Inc.; [employer] Comment on above: Pattern: Regular 03-22-2017 09:55-0400 Systolic blood pressure 142 mm[Hg] Gisella Honorio CARVALHO [facility], Inc.; Harris [employer] Comment on above: Patient Position: Sitting; Cuff Location : Left Arm; Cuff Size: Standard 10-10-2016 09:32-0500 Body height 154.94 cm Nichol K Mutersbaugh HOME HEALTH CARE WORKER [facility], Inc.; [employer] 10-10-2016 09:32-0500 Body mass index (BMI) [Ratio] 28.72 kg/m2 Nichol K Mutersbaugh HOME HEALTH CARE WORKER [facility], Inc.; Harris [employer] 10-10-2016 09:32-0500 Body surface area Derived from formula 1.68 m2 Nichol K Mutersbaugh HOME HEALTH CARE WORKER [facility], Inc.; [employer], [employer] 10-10-2016 09:32-0500 Body weight 68.95 kg Nichol K Mutersbaugh HOME HEALTH CARE WORKER [place] GERS [facility], Inc.; [employer], [employer] 10-10-2016 09:32-0500 Diastolic blood pressure 92 mm[Hg] Nichol K Mutersbaugh HOME HEALTH CARE WORKER [place] GERS [facility], Inc.; [employer] Comment on above: Patient Position: Sitting; Cuff Location : Left Arm; Cuff Size: Standard 10-10-2016 09:32-0500 Heart rate 96 /min Nichol K Mutersbaugh HOME HEALTH CARE WORKER [facility] [employer]. Comment on above: Pattern: Regular 10-10-2016 09:32-0500 Systolic blood pressure 136 mm[Hg] Nichol De La Garza LPN [facility] [employer]. Comment on above: Patient Position: Sitting; Cuff Location : Left Arm; Cuff Size: Standard 06-07-2016 08:13-0400 Body height 154.94 cm Livia Soler RN [place] [facility] [employer]. 06-07-2016 08:13-0400 Body mass index (BMI) [Ratio] 27.78 kg/m2 Livia Soler RN [place] [facility].; [employer]. 06-07-2016 08:13-0400 Body surface area Derived from formula 1.66 m2 Livia Soler RN [place] [facility].; [employer]. 06-07-2016 08:13-0400 Body temperature 97.9 [degF] Livia Soler RN [place] [employer]. Comment on above: Method: Tympanic 06-07-2016 08:13-0400 Body weight 66.68 kg Livia Soler RN [place] [facility] [employer]. 06-07-2016 08:13-0400 Diastolic blood pressure 62 mm[Hg] Livia Soler RN [place] [facility].; [employer]. Comment on above: Patient Position: Sitting; Cuff Location : Left Arm; Cuff Size: Standard 06-07-2016 08:13-0400 Heart rate 70 /min Livia Soler RN [employer]. Comment on above: Pattern: Regular 06-07-2016 08:13-0400 Systolic blood pressure 94 mm[Hg] Livia Soler RN [employer]. Comment on above: Patient Position: Sitting; Cuff Location : Left Arm; Cuff Size: Standard 03-26-2016 08:07-0400 Body height 154.94 cm Nichol Pinedabaugh HOME HEALTH CARE WORKER [facility], [facility].; [employer], [facility]. 03-26-2016 08:07-0400 Body mass index (BMI) [Ratio] 27.21 kg/m2 Nichol Emilio Mutersbaugh HOME HEALTH CARE WORKER [facility], [facility].; [employer], [employer]. 03-26-2016 08:07-0400 Body surface area Derived from formula 1.64 m2 Nichol Emilio Pinedabaugh HOME HEALTH CARE WORKER [facility], [facility].; Harris [employer] [facility]. 03-26-2016 08:07-0400 Body temperature 98.6 [degF] Nichol Emilio Downeyersbaugh HOME HEALTH CARE WORKER [facility], [facility].; [employer]. 03-26-2016 08:07-0400 Body weight 65.32 kg Nichol Emilio Pinedabaugh HOME HEALTH CARE WORKER [facility], [facility].; [employer]. 03-26-2016 08:07-0400 Diastolic blood pressure 76 mm[Hg] Nichol Emilio Mutersbaugh HOME HEALTH CARE WORKER [facility], [facility].; [employer], [employer]. Comment on above: Patient Position: Sitting; Cuff Location : Left Arm; Cuff Size: Standard 03-26-2016 08:07-0400 Heart rate 67 /min Nichol Emilio Pinedabaugh HOME HEALTH CARE WORKER [facility], [facility].; [employer], [employer]. Comment on above: Pattern: Regular 03-26-2016 08:07-0400 Systolic blood pressure 127 mm[Hg] Nichol Emilio Downeyersbaugh HOME HEALTH CARE WORKER [facility], [facility].; [employer], [employer]. Comment on above: Patient Position: Sitting; Cuff Location : Left Arm; Cuff Size: Standard 10-13-2015 12:00-0500 Body height 154.94 cm Angela Wendy [facility] Work Phone: [employer]. 10-13-2015 12:00-0500 Body mass index (BMI) [Ratio] 29.29 kg/m2 Angela Wendy [facility] Work Phone: [facility].; [employer]. 10-13-2015 12:00-0500 Body surface area Derived from formula 1.7 m2 Angela Nguyen LPN Work Phone: [employer]. 10-13-2015 12:00-0500 Body weight 70.31 kg Angela Nguyen LPN Work Phone: [employer]. 10-13-2015 12:00-0500 Diastolic blood pressure 66 mm[Hg] Angela Nguyen LPN Work Phone: [employer]. Comment on above: Patient Position: Sitting; Cuff Location : Left Arm; Cuff Size: Standard 10-13-2015 12:00-0500 Heart rate 92 /min Angela Nguyen LPN Work Phone: [employer]. Comment on above: Pattern: Regular 10-13-2015 12:00-0500 Systolic blood pressure 128 mm[Hg] Angela Nguyen LPN Work Phone: [employer]. Comment on above: Patient Position: Sitting; Cuff Location : Left Arm; Cuff Size: Standard 08-23-2015 10:09-0500 Body height 154.94 cm Livia Soler RN [employer]. 08-23-2015 10:09-0500 Body mass index (BMI) [Ratio] 29.29 kg/m2 Livia Soler RN [employer]. 08-23-2015 10:09-0500 Body surface area Derived from formula 1.7 m2 Livia Soler RN [employer]. 08-23-2015 10:09-0500 Body weight 70.31 kg Livia Soler RN [employer]. 08-23-2015 10:09-0500 Diastolic blood pressure 71 mm[Hg] Livia Soler RN [employer]. Comment on above: Patient Position: Sitting; Cuff Location : Left Arm; Cuff Size: Standard 08-23-2015 10:09-0500 Heart rate 79 /min Livia Soler RN [place] [facility] [employer]. Comment on above: Pattern: Regular 08-23-2015 10:09-0500 Systolic blood pressure 121 mm[Hg] Livia Soler RN [employer]. Comment on above: Patient Position: Sitting; Cuff Location : Left Arm; Cuff Size: Standard 04-14-2015 11:34-0400 Body height 157.48 cm Livia Soler RN [facility].; [employer]. 04-14-2015 11:34-0400 Body mass index (BMI) [Ratio] 27.98 kg/m2 Livia Soler RN [employer]. 04-14-2015 11:34-0400 Body surface area Derived from formula 1.71 m2 Livia Soler RN [employer]. 04-14-2015 11:34-0400 Body temperature 97.8 [degF] Livia Soler RN [employer]. Comment on above: Method: Tympanic 04-14-2015 11:34-0400 Body weight 69.4 kg Livia Soler RN [employer]. 04-14-2015 11:34-0400 Diastolic blood pressure 70 mm[Hg] Livia Soler RN [employer]. Comment on above: Patient Position: Sitting; Cuff Location : Left Arm; Cuff Size: Standard 04-14-2015 11:34-0400 Systolic blood pressure 102 mm[Hg] Livia Soler RN [employer]. Comment on above: Patient Position: Sitting; Cuff Location : Left Arm; Cuff Size: Standard 11-09-2014 09:49-0400 Body height 154.94 cm Yazmin [place] [facility], [facility].; Harris GERS [facility], Inc[facility] 11-09-2014 09:49-0400 Body mass index (BMI) [Ratio] 27.96 kg/m2 Larisa Olivera [facility], [facility].; [place] GERS [facility], Inc[facility] 11-09-2014 09:49-0400 Body surface area Derived from formula 1.66 m2 Larisa Olivera [facility], Inc.; [place] GERS [facility], Inc[facility] 11-09-2014 09:49-0400 Body temperature 98.7 [degF] Larisa Olivera [facility], Inc.; [employer] Comment on above: Method: Tympanic 11-09-2014 09:49-0400 Body weight 67.13 kg Larisa Olivera HOME HEALTH CARE WORKER [facility], [facility].; Harris GERS [facility], Inc[facility] 11-09-2014 09:49-0400 Diastolic blood pressure 77 mm[Hg] Larisa Olivera [facility], [facility].; [facility], Inc[facility] Comment on above: Patient Position: Sitting; Cuff Location : Left Arm; Cuff Size: Large 11-09-2014 09:49-0400 Heart rate 35 /min Larisa Olivera [facility], [facility].; [facility], Inc[facility] Comment on above: Pattern: Regular 11-09-2014 09:49-0400 Systolic blood pressure 120 mm[Hg] Larisa Olivera HOME HEALTH CARE WORKER [facility], Inc.; Harris [employer] Comment on above: Patient Position: Sitting; Cuff Location : Left Arm; Cuff Size: Large 06-14-2014 14:39-0500 Body height 154.94 cm Margarita Colón RN Work Phone: [facility], Inc.; [facility], Inc[facility] 06-14-2014 14:39-0500 Body mass index (BMI) [Ratio] 27.78 kg/m2 Margarita Colón RN Work Phone: [facility], Inc.; [employer], [employer] 06-14-2014 14:39-0500 Body surface area Derived from formula 1.66 m2 Margarita Colón RN Work Phone: [employer]. 06-14-2014 14:39-0500 Body weight 66.68 kg Margarita Colón RN Work Phone: [employer]. 06-14-2014 14:39-0500 Diastolic blood pressure 62 mm[Hg] Margarita Colón RN Work Phone: [employer]. Comment on above: Patient Position: Sitting; Cuff Location : Left Arm; Cuff Size: Large 06-14-2014 14:39-0500 Heart rate 75 /min Margarita Colón RN Work Phone: [employer]. Comment on above: Pattern: Regular 06-14-2014 14:39-0500 Systolic blood pressure 126 mm[Hg] Margarita Colón RN Work Phone: [employer]. Comment on above: Patient Position: Sitting; Cuff Location : Left Arm; Cuff Size: Large 05-11-2014 11:42-0400 Body height 154.94 cm Angela Wendy HOME HEALTH CARE WORKER Work Phone: [employer]. 05-11-2014 11:42-0400 Body mass index (BMI) [Ratio] 27.78 kg/m2 Newser HOME HEALTH CARE WORKER Work Phone: [employer].; [employer]. 05-11-2014 11:42-0400 Body surface area Derived from formula 1.66 m2 [employer] HOME HEALTH CARE WORKER Work Phone: [employer].; [employer]. 05-11-2014 11:42-0400 Body weight 66.68 kg Angela Wendy HOME HEALTH CARE WORKER Work Phone: [employer]. 05-11-2014 11:42-0400 Diastolic blood pressure 67 mm[Hg] Angela Wendy HOME HEALTH CARE WORKER Work Phone: [employer]. Comment on above: Patient Position: Sitting; Cuff Location : Left Arm; Cuff Size: Standard 05-11-2014 11:42-0400 Heart rate 87 /min Angela Nguyen HOME HEALTH CARE WORKER Work Phone: [employer]. Comment on above: Pattern: Regular 05-11-2014 11:42-0400 Systolic blood pressure 115 mm[Hg] Angela Nguyen HOME HEALTH CARE WORKER Work Phone: [employer]. Comment on above: Patient Position: Sitting; Cuff Location : Left Arm; Cuff Size: Standard 10-02-2013 08:59-0500 Body height 154.94 cm Margarita Colón RN Work Phone: [employer].; [employer] 10-02-2013 08:59-0500 Body mass index (BMI) [Ratio] 27.96 kg/m2 Margarita Colón RN Work Phone: [employer].; [employer] 10-02-2013 08:59-0500 Body surface area Derived from formula 1.66 m2 Margarita Colón RN Work Phone: [employer].; [employer] 10-02-2013 08:59-0500 Body weight 67.13 kg Margarita Colón RN Work Phone: [employer].; [employer] 10-02-2013 08:59-0500 Diastolic blood pressure 64 mm[Hg] Margarita Colón RN Work Phone: [employer].; [employer]. Comment on above: Patient Position: Sitting; Cuff Location : Left Arm; Cuff Size: Large 10-02-2013 08:59-0500 Heart rate 65 /min Margarita Colón RN Work Phone: [employer]. Comment on above: Pattern: Regular 10-02-2013 08:59-0500 Systolic blood pressure 121 mm[Hg] Margarita Colón RN Work Phone: [employer].; [employer]. Comment on above: Patient Position: Sitting; Cuff Location : Left Arm; Cuff Size: Large 09-04-2013 09:40-0500 Body height 154.94 cm Margarita Colón RN Work Phone: [employer]. 09-04-2013 09:40-0500 Body mass index (BMI) [Ratio] 28.15 kg/m2 Margarita Colón RN Work Phone: [employer]. 09-04-2013 09:40-0500 Body surface area Derived from formula 1.67 m2 Margarita Colón RN Work Phone: [employer]. 09-04-2013 09:40-0500 Body temperature 98.2 [degF] Margarita Colón RN Work Phone: [employer]. Comment on above: Method: Tympanic 09-04-2013 09:40-0500 Body weight 67.59 kg Margarita Colón RN Work Phone: [employer]. 09-04-2013 09:40-0500 Diastolic blood pressure 68 mm[Hg] Margarita Colón RN Work Phone: [employer]. Comment on above: Patient Position: Sitting; Cuff Location : Left Arm; Cuff Size: Large 09-04-2013 09:40-0500 Heart rate 74 /min Margarita Colón RN Work Phone: [employer].; [employer]. Comment on above: Pattern: Regular 09-04-2013 09:40-0500 Systolic blood pressure 96 mm[Hg] Margarita Colón RN Work Phone: [employer].; [employer]. Comment on above: Patient Position: Sitting; Cuff Location : Left Arm; Cuff Size: Large 08-28-2013 11:29-0500 Body height 154.94 cm Margarita Colón RN Work Phone: [employer]. 08-28-2013 11:29-0500 Body mass index (BMI) [Ratio] 28.15 kg/m2 Margarita Colón RN Work Phone: [employer]. 08-28-2013 11:29-0500 Body surface area Derived from formula 1.67 m2 Margarita Colón RN Work Phone: [employer]. 08-28-2013 11:29-0500 Body temperature 98.6 [degF] Margarita Colón RN Work Phone: [employer]. Comment on above: Method: Tympanic 08-28-2013 11:29-0500 Body weight 67.59 kg Margarita Colón RN Work Phone: [employer].; [employer]. 08-28-2013 11:29-0500 Diastolic blood pressure 62 mm[Hg] Margarita Colón RN Work Phone: [employer].; [employer]. Comment on above: Patient Position: Sitting; Cuff Location : Left Arm; Cuff Size: Standard 08-28-2013 11:29-0500 Heart rate 74 /min Margarita Colón RN Work Phone: [employer].; [employer]. Comment on above: Pattern: Regular 08-28-2013 11:29-0500 Systolic blood pressure 98 mm[Hg] Margarita Colón RN Work Phone: [employer].; [employer]. Comment on above: Patient Position: Sitting; Cuff Location : Left Arm; Cuff Size: Standard 12-11-2012 13:20-0400 Body height 154.94 cm Angela Nguyen LPN Work Phone: [employer]. 12-11-2012 13:20-0400 Body mass index (BMI) [Ratio] 27.96 kg/m2 Angela Nguyen LPN Work Phone: [employer].; [employer] [employer]. 12-11-2012 13:20-0400 Body surface area Derived from formula 1.66 m2 Angela Nguyen LPN Work Phone: [employer] 12-11-2012 13:20-0400 Body weight 67.13 kg Angela Nguyen LPN Work Phone: [employer]. 12-11-2012 13:20-0400 Diastolic blood pressure 65 mm[Hg] Angela Nguyen LPN Work Phone: [employer]. Comment on above: Patient Position: Sitting; Cuff Location : Left Arm; Cuff Size: Standard 12-11-2012 13:20-0400 Heart rate 61 /min Angela Nguyen LPN Work Phone: [employer]. Comment on above: Pattern: Regular 12-11-2012 13:20-0400 Systolic blood pressure 107 mm[Hg] Angela Nguyen LPN Work Phone: [employer]. Comment on above: Patient Position: Sitting; Cuff Location : Left Arm; Cuff Size: Standard 07-31-2012 11:37-0500 Body height 154.94 cm Angela Nguyen LPN Work Phone: [employer]. 07-31-2012 11:37-0500 Body mass index (BMI) [Ratio] 28.34 kg/m2 Angela Nguyen LPN Work Phone: [employer]. 07-31-2012 11:37-0500 Body surface area Derived from formula 1.67 m2 Angela Wendy LPN Work Phone: [employer]. 07-31-2012 11:37-0500 Body weight 68.04 kg Angela Wendy HOME HEALTH CARE WORKER Work Phone: [employer]. 07-31-2012 11:37-0500 Diastolic blood pressure 70 mm[Hg] Angela Wendy HOME HEALTH CARE WORKER Work Phone: [employer]. Comment on above: Patient Position: Sitting; Cuff Location : Left Arm; Cuff Size: Standard 07-31-2012 11:37-0500 Heart rate 70 /min Angela Wendy HOME HEALTH CARE WORKER Work Phone: [employer]. Comment on above: Pattern: Regular 07-31-2012 11:37-0500 Systolic blood pressure 119 mm[Hg] Angela Wendy HOME HEALTH CARE WORKER Work Phone: [employer]. Comment on above: Patient Position: Sitting; Cuff Location : Left Arm; Cuff Size: Standard 07-01-2012 15:05-0500 Body height 154.94 cm Angela Wendy HOME HEALTH CARE WORKER Work Phone: [employer]. 07-01-2012 15:05-0500 Body mass index (BMI) [Ratio] 28.34 kg/m2 Angela Wendy HOME HEALTH CARE WORKER Work Phone: [employer]. 07-01-2012 15:05-0500 Body surface area Derived from formula 1.67 m2 Angela Wendy HOME HEALTH CARE WORKER Work Phone: [employer]. 07-01-2012 15:05-0500 Body weight 68.04 kg Angela Wendy HOME HEALTH CARE WORKER Work Phone: [employer]. 07-01-2012 15:05-0500 Diastolic blood pressure 77 mm[Hg] Angela Wendy HOME HEALTH CARE WORKER Work Phone: [employer]. Comment on above: Patient Position: Sitting; Cuff Location : Left Arm; Cuff Size: Standard 07-01-2012 15:05-0500 Heart rate 66 /min Angela Nguyen LPN [facility]: [facility] [employer]. Comment on above: Pattern: Regular 07-01-2012 15:05-0500 Systolic blood pressure 116 mm[Hg] Angela Nguyen HOME HEALTH CARE WORKER Work Phone: [facility] [employer]. Comment on above: Patient Position: Sitting; Cuff Location : Left Arm; Cuff Size: Standard 04-15-2012 15:33-0400 Body height 154.94 cm Margarita Colón RN Work Phone: [facility] [employer]. 04-15-2012 15:33-0400 Body mass index (BMI) [Ratio] 27.96 kg/m2 Margarita Colón RN Work Phone: [employer] [facility] [employer] 04-15-2012 15:33-0400 Body surface area Derived from formula 1.66 m2 Margarita Colón RN Work Phone: [employer]. 04-15-2012 15:33-0400 Body weight 67.13 kg Margarita Colón RN Work Phone: [employer]. 04-15-2012 15:33-0400 Diastolic blood pressure 73 mm[Hg] Margarita Colón RN Work Phone: [employer]. Comment on above: Patient Position: Sitting; Cuff Location : Left Arm; Cuff Size: Standard 04-15-2012 15:33-0400 Heart rate 68 /min Margarita Colón RN Work Phone: [employer]. Comment on above: Pattern: Regular 04-15-2012 15:33-0400 Systolic blood pressure 125 mm[Hg] Margarita Colón RN Work Phone: [employer]. Comment on above: Patient Position: Sitting; Cuff Location : Left Arm; Cuff Size: Standard 10-23-2011 11:37-0400 Body height 154.94 cm Margarita Colón RN Work Phone: [employer]. 10-23-2011 11:37-0400 Body mass index (BMI) [Ratio] 27.59 kg/m2 Margarita Colón RN Work Phone: [employer]. 10-23-2011 11:37-0400 Body surface area Derived from formula 1.65 m2 Margarita Colón RN Work Phone: [employer]. 10-23-2011 11:37-0400 Body weight 66.23 kg Margarita Colón RN Work Phone: [employer]. 10-23-2011 11:37-0400 Diastolic blood pressure 74 mm[Hg] Margarita Colón RN Work Phone: [employer]. Comment on above: Patient Position: Sitting; Cuff Location : Right Arm; Cuff Size: Standard 10-23-2011 11:37-0400 Heart rate 69 /min Margarita Colón RN Work Phone: [employer]. Comment on above: Pattern: Regular 10-23-2011 11:37-0400 Systolic blood pressure 121 mm[Hg] Margarita Colón RN Work Phone: [employer]. Comment on above: Patient Position: Sitting; Cuff Location : Right Arm; Cuff Size: Standard 10-12-2011 15:34-0500 Body height 154.94 cm Margarita Colón RN Work Phone: [employer]. 10-12-2011 15:34-0500 Body mass index (BMI) [Ratio] 27.59 kg/m2 Margarita Colón RN Work Phone: [employer]. 10-12-2011 15:34-0500 Body surface area Derived from formula 1.65 m2 Margarita Colón RN Work Phone: [employer]. 10-12-2011 15:34-0500 Body temperature 97.5 [degF] Margarita Colón RN Work Phone: [employer]. Comment on above: Method: Tympanic 10-12-2011 15:34-0500 Body weight 66.23 kg Margarita Colón RN Work Phone: [employer]. 10-12-2011 15:34-0500 Diastolic blood pressure 63 mm[Hg] Margarita Colón RN Work Phone: [employer]. Comment on above: Patient Position: Sitting; Cuff Location : Left Arm; Cuff Size: Standard 10-12-2011 15:34-0500 Heart rate 68 /min Margarita Colón RN Work Phone: [employer]. Comment on above: Pattern: Regular 10-12-2011 15:34-0500 Systolic blood pressure 122 mm[Hg] Margarita Colón RN Work Phone: [employer]. Comment on above: Patient Position: Sitting; Cuff Location : Left Arm; Cuff Size: Standard 09-25-2011 14:22-0500 Body height 154.94 cm Margarita Colón RN Work Phone: [employer]. 09-25-2011 14:22-0500 Body mass index (BMI) [Ratio] 27.21 kg/m2 Margarita Colón RN Work Phone: [employer]. 09-25-2011 14:22-0500 Body surface area Derived from formula 1.64 m2 Margarita Colón RN Work Phone: [employer] 09-25-2011 14:22-0500 Body weight 65.32 kg Margarita Colón RN Work Phone: [employer] 09-25-2011 14:22-0500 Diastolic blood pressure 72 mm[Hg] Margarita Colón RN Work Phone: [employer]. Comment on above: Patient Position: Sitting; Cuff Location : Left Arm; Cuff Size: Standard 09-25-2011 14:22-0500 Heart rate 65 /min Margarita Colón RN Work Phone: [facility] [employer]. Comment on above: Pattern: Regular 09-25-2011 14:22-0500 Systolic blood pressure 123 mm[Hg] Margarita Colón RN Work Phone: [employer]. Comment on above: Patient Position: Sitting; Cuff Location : Left Arm; Cuff Size: Standard 08-28-2011 12:57-0500 Body height 154.94 cm Angela Wendy HOME HEALTH CARE WORKER Work Phone: [employer] 08-28-2011 12:57-0500 Body mass index (BMI) [Ratio] 28.34 kg/m2 [facility] CARE [facility] Work Phone: [employer] 08-28-2011 12:57-0500 Body surface area Derived from formula 1.67 m2 [facility] CARE WORKER Work Phone: [employer] 08-28-2011 12:57-0500 Body weight 68.04 kg Angela Wendy HOME HEALTH CARE WORKER Work Phone: [employer] 08-28-2011 12:57-0500 Diastolic blood pressure 65 mm[Hg] Angela Nguyen HOME HEALTH CARE WORKER Work Phone: [employer]. Comment on above: Patient Position: Sitting; Cuff Location : Left Arm; Cuff Size: Standard 08-28-2011 12:57-0500 Heart rate 72 /min Angela Nguyen HOME HEALTH CARE WORKER Work Phone: [employer]. Comment on above: Pattern: Regular 08-28-2011 12:57-0500 Systolic blood pressure 119 mm[Hg] Angela Nguyen HOME HEALTH CARE WORKER Work Phone: [employer]. Comment on above: Patient Position: Sitting; Cuff Location : Left Arm; Cuff Size: Standard 05-08-2011 13:51-0400 Body height 154.94 cm Margarita Colón RN Work Phone: [employer] 05-08-2011 13:51-0400 Body mass index (BMI) [Ratio] 27.4 kg/m2 Margarita Colón RN Work Phone: [employer]. 05-08-2011 13:51-0400 Body surface area Derived from formula 1.65 m2 Margarita Colón RN Work Phone: [employer]. 05-08-2011 13:51-0400 Body weight 65.77 kg Margarita Colón RN Work Phone: [employer]. 05-08-2011 13:51-0400 Diastolic blood pressure 74 mm[Hg] Margarita Colón RN Work Phone: [employer]. Comment on above: Patient Position: Sitting; Cuff Location : Left Arm; Cuff Size: Standard 05-08-2011 13:51-0400 Heart rate 65 /min Margarita Colón RN Work Phone: [employer]. Comment on above: Pattern: Regular 05-08-2011 13:51-0400 Systolic blood pressure 116 mm[Hg] Margarita Colón RN Work Phone: [employer]. Comment on above: Patient Position: Sitting; Cuff Location : Left Arm; Cuff Size: Standard 04-23-2011 11:38-0400 Body height 154.94 cm Margarita Colón RN Work Phone: [employer]. 04-23-2011 11:38-0400 Body mass index (BMI) [Ratio] 27.4 kg/m2 Margarita Colón RN Work Phone: [employer]. 04-23-2011 11:38-0400 Body surface area Derived from formula 1.65 m2 Margarita Colón RN Work Phone: [employer]. 04-23-2011 11:38-0400 Body weight 65.77 kg Margarita Colón RN Work Phone: [employer]. 04-23-2011 11:38-0400 Diastolic blood pressure 74 mm[Hg] Margarita Colón RN Work Phone: [employer]. Comment on above: Patient Position: Sitting; Cuff Location : Left Arm; Cuff Size: Standard 04-23-2011 11:38-0400 Heart rate 79 /min Margarita Colón RN Work Phone: [employer]. Comment on above: Pattern: Regular 04-23-2011 11:38-0400 Systolic blood pressure 123 mm[Hg] Margarita Colón RN Work Phone: [employer]. Comment on above: Patient Position: Sitting; Cuff Location : Left Arm; Cuff Size: Standard 09-07-2010 13:34-0500 Body height 154.94 cm Margarita Colón RN Work Phone: [employer]. 09-07-2010 13:34-0500 Body mass index (BMI) [Ratio] 27.02 kg/m2 Margarita Colón RN Work Phone: [employer] 09-07-2010 13:34-0500 Body surface area Derived from formula 1.64 m2 Margarita Colón RN Work Phone: [employer]. 09-07-2010 13:34-0500 Body weight 64.86 kg Margarita Colón RN Work Phone: [employer]. 09-07-2010 13:34-0500 Diastolic blood pressure 63 mm[Hg] Margarita Colón RN Work Phone: [employer]. Comment on above: Patient Position: Sitting; Cuff Location : Left Arm; Cuff Size: Standard 09-07-2010 13:34-0500 Heart rate 68 /min Margarita Colón RN Work Phone: [employer]. Comment on above: Pattern: Regular 09-07-2010 13:34-0500 Systolic blood pressure 111 mm[Hg] Margarita Colón RN Work Phone: [employer]. Comment on above: Patient Position: Sitting; Cuff Location : Left Arm; Cuff Size: Standard 08-24-2010 14:57-0500 Body height 154.94 cm Margarita Colón RN Work Phone: [employer]. 08-24-2010 14:57-0500 Body mass index (BMI) [Ratio] 27.21 kg/m2 Margarita Colón RN Work Phone: [employer]. 08-24-2010 14:57-0500 Body surface area Derived from formula 1.64 m2 Margarita Colón RN Work Phone: [employer]. 08-24-2010 14:57-0500 Body weight 65.32 kg Margarita Colón RN Work Phone: [employer] [facility], [employer] 08-24-2010 14:57-0500 Diastolic blood pressure 67 mm[Hg] Margarita Colón RN Work Phone: [facility], [employer]. Comment on above: Patient Position: Sitting; Cuff Location : Left Arm; Cuff Size: Standard 08-24-2010 14:57-0500 Heart rate 81 /min Margarita Colón RN Work Phone: [employer] [facility], [employer]. Comment on above: Pattern: Regular 08-24-2010 14:57-0500 Systolic blood pressure 119 mm[Hg] Margarita Colón RN Work Phone: [facility], [employer]. Comment on above: Patient Position: Sitting; Cuff Location : Left Arm; Cuff Size: Standard 06-14-2010 11:38-0400 Body height 162.56 cm Yazmin Stuckey HOME HEALTH CARE WORKER [facility] [employer] 06-14-2010 11:38-0400 Body mass index (BMI) [Ratio] 24.55 kg/m2 YazminRozina Olivera HOME HEALTH CARE WORKER [facility], [employer] 06-14-2010 11:38-0400 Body surface area Derived from formula 1.7 m2 Larisa Olivera HOME HEALTH CARE WORKER [facility], [employer] 06-14-2010 11:38-0400 Body temperature 97.1 [degF] Yazmin Stuckey [facility], [employer]. Comment on above: Method: Tympanic 06-14-2010 11:38-0400 Body weight 64.86 kg Larisa Olivera LPN [facility], [employer], [employer] 06-14-2010 11:38-0400 Diastolic blood pressure 75 mm[Hg] Larisa Olivera HOME HEALTH CARE WORKER [facility] [facility], [employer]. Comment on above: Patient Position: Sitting; Cuff Location : Left Arm; Cuff Size: Large 06-14-2010 11:38-0400 Heart rate 80 /min Larisa Olivera LPN [facility]. Comment on above: Pattern: Regular 06-14-2010 11:38-0400 Systolic blood pressure 113 mm[Hg] Larisa Olivera LPN [employer]. Comment on above: Patient Position: Sitting; Cuff Location : Left Arm; Cuff Size: Large 05-18-2010 16:56-0400 Body height 159.38 cm Angela Wendy HOME HEALTH CARE WORKER Work Phone: [employer] 05-18-2010 16:56-0400 Body mass index (BMI) [Ratio] 25.53 kg/m2 Agnela Wendy HOME HEALTH CARE WORKER Work Phone: [employer] 05-18-2010 16:56-0400 Body surface area Derived from formula 1.67 m2 Angela Wendy HOME HEALTH CARE WORKER Work Phone: [employer] 05-18-2010 16:56-0400 Body weight 64.86 kg Angela Wendy HOME HEALTH CARE WORKER Work Phone: [employer] 05-18-2010 16:56-0400 Diastolic blood pressure 52 mm[Hg] Angela Wendy HOME HEALTH CARE WORKER Work Phone: [employer]. Comment on above: Patient Position: Sitting; Cuff Location : Left Arm; Cuff Size: Standard 05-18-2010 16:56-0400 Heart rate 64 /min Angela Wendy HOME HEALTH CARE WORKER Work Phone: [employer]. Comment on above: Pattern: Regular 05-18-2010 16:56-0400 Systolic blood pressure 112 mm[Hg] Angela Wendy HOME HEALTH CARE WORKER Work Phone: [employer]. Comment on above: Patient Position: Sitting; Cuff Location : Left Arm; Cuff Size: Standard Encounters Encounter Date Encounter Type Care Provider Facility Start: 06-23-2025 ambulatory Maddy Yao PA Facil ity:[facility] Start: 05-04-2025 End: 05-04-[address] Theresa Maurice MD -[facility] Work Phone: Start: 05-04-2025 End: 05-04-2025 ambulatory Maddy Yao PA Work Phone: -[facility] Start: 04-27-2025 End: 04-27-2025 ambulatory MADDY YAO [facility] Start: 04-22-2025 End: 04-22-2025 ambulatory MADDY YAO [facility] Start: 04-20-2025 End: 04-20-2025 ambulatory MADDY Vizcarra [facility] Start: 03-17-2025 End: 03-17-2025 Office outpatient visit 15 minutes Maddy Yao PA-C Work Phone: [employer]. Start: 01-22-2025 End: 01-22-2025 Maddy Yao PA-C Work Phone: [employer]. Start: 01-22-2025 End: 01-22-2025 [facility] Start: 01-21-2025 End: 01-21-2025 Maddy Yao PA-C Work Phone: [employer]. Start: 01-11-2025 End: 01-13-2025 Maddy Yao PA-C Work Phone: [employer]. Start: 01-07-2025 End: 01-07-2025 Maddy Yao PA-C Work Phone: [employer]. Start: 11-17-2024 [id number] Start: 11-17-2024 End: 11-17-2024 Subsequent hospital visit by physician Screen Mammo [facility] Comment on above: Encounter for screen ing mammogram for malignant neoplasm of breast [Z12.31] Start: 10-16-2024 End: 10-16-2024 Office outpatient visit 15 minutes Maddy Yao PA-C Work Phone: [employer]. Start: 10-16-2024 Maddy Yao PA-C Work Phone: [employer]. Start: 08-17-2024 End: 08-17-2024 ambulatory MADDY YAO [facility]ery [facility] Start: 08-17-2024 End: 08-17-2024 Office outpatient visit 15 minutes Maddy Yao PA-C Work Phone: [employer]. Start: 08-16-2024 End: 08-16-2024 Maddy Yao PA-C Work Phone: [employer]. Start: 07-23-2024 Maddy Arreolaer PA-C Work Phone: [employer] Start: 07-22-2024 End: 07-22-2024 Patient encounter status Maddy Yao PA-C Work Phone: [employer]. Start: 07-22-2024 End: 07-22-2024 Periodic preventive med est patient 65yrs& older Maddy Yao PA-C Work Phone: [employer]. Start: 07-22-2024 Patient encounter status Nichelle Arreolaer PA-C Work Phone: [employer]. Start: 07-22-2024 Maddy Arreolaer PA-C Work Phone: [employer] Start: 07-16-2024 End: 07-16-2024 Orders Maddy Arreolaer PA-C Work Phone: [employer] Start: 07-16-2024 End: 07-16-2024 Maddy Yao PA-C Work Phone: [employer]. Start: 06-01-2024 End: 06-01-2024 Orders Maddy Yao PA-C Work Phone: [employer]. Start: 06-01-2024 End: 06-01-2024 Maddy Yao PA-C Work Phone: [employer] Start: 07-16-2023 End: 07-16-2023 Subsequent hospital visit by physician Bone Density [facility] Comment on above: Other specified diso rders of bone density and structure, multiple sites [M85.89] Start: 07-08-2023 End: 07-08-2023 Patient encounter procedure Filipe Jose CARVALHO [employer]. Start: 07-08-2023 End: 07-08-2023 Patient encounter status Filipe Garcia LPN [employer] Start: 07-08-2023 End: 07-08-2023 Maddy Yao PA-C Work Phone: [employer]. Start: 07-01-2023 End: 07-01-2023 Orders Maddy Yao PA-C Work Phone: [employer]. Start: 07-01-2023 End: 07-01-2023 Maddy Yao PA-C Work Phone: [employer]. Start: 06-13-2023 End: 06-13-2023 Orders Maddy Yao PA-C Work Phone: [employer]. Start: 06-13-2023 End: 06-13-2023 Maddy Yao PA-C Work Phone: [employer] Start: 03-14-2023 End: 03-14-2023 Subsequent hospital visit by physician Provider [facility] Comment on above: SCREENING LAST MAMMO 02-15-22 Start: 12-21-2022 End: 12-21-2022 Patient encounter procedure Maddy Yao PA-C Work Phone: [employer] Start: 12-21-2022 End: 12-21-2022 Maddy Yao PA-C Work Phone: [employer] Start: 11-21-2022 End: 11-21-2022 Office outpatient visit 15 minutes Maddy Yao PA-C Work Phone: [employer] Start: 10-11-2022 End: 10-11-2022 Patient encounter procedure Maddy Yao PA-C Work Phone: [employer]. Start: 10-11-2022 End: 10-11-2022 Maddy Yao PA-C Work Phone: [employer] Start: 10-02-2022 ambulatory JOSELUIS MARTINEZ Fac ility:[facility] Start: 08-24-2022 End: 08-24-2022 Office outpatient visit 15 minutes Maddy Yao PA-C Work Phone: [employer] Start: 05-24-2022 End: 05-24-2022 Patient encounter procedure Maddy Yao PA-C Work Phone: [employer] Start: 05-24-2022 End: 05-24-2022 Patient encounter status Maddy Yao PA-C Work Phone: [employer]; [employer] Start: 05-24-2022 End: 05-24-2022 Physical examination Maddy Yao PA-C Work Phone: [employer]. Start: 05-24-2022 End: 05-24-2022 Maddy Yao PA-C Work Phone: [employer] Start: 05-16-2022 End: 05-16-2022 Orders Maddy Yao PA-C Work Phone: [employer] Start: 05-16-2022 End: 05-16-2022 Maddy Yao PA-C Work Phone: [employer]. Start: 05-09-2022 End: 05-09-2022 Medication Maddy Yao PA-C Work Phone: [employer]. Start: 05-09-2022 End: 05-09-2022 Maddy Yao PA-C Work Phone: [employer] Start: 05-07-2022 End: 05-07-2022 Patient encounter procedure Maddy Yao PA-C Work Phone: [employer] Start: 05-07-2022 End: 05-07-2022 Maddy Yao PA-C Work Phone: [employer] Start: 04-26-2022 End: 04-26-2022 Orders Maddy Yao PA-C Work Phone: [employer]. Start: 04-26-2022 End: 04-26-2022 Maddy Yao PA-C Work Phone: [employer] Start: 02-15-2022 End: 02-15-2022 Subsequent [facility] Comment on above: SCREENING Start: 11-03-2021 End: 11-03-2021 Office outpatient visit 15 minutes Maddy Yao PA-C Work Phone: [employer]. Start: 10-20-2021 End: 10-20-2021 Office outpatient visit 15 minutes Maddy Yao PA-C Work Phone: [employer]. Start: 09-12-2021 End: 09-12-2021 Subsequent hospital visit by [facility] Start: 04-21-2021 End: 04-21-2021 Patient encounter procedure Maddy Yao PA-C Work Phone: [employer] Start: 04-21-2021 End: 04-21-2021 Patient encounter status Maddy Yao PA-C Work Phone: [employer]. Start: 04-21-2021 End: 04-21-2021 Maddy Yao PA-C Work Phone: [employer]. Start: 04-04-2021 End: 04-05-2021 Orders Maddy Yao PA-C Work Phone: [employer]. Start: 04-04-2021 End: 04-05-2021 Maddy Yao PA-C Work Phone: [employer]. Start: 03-17-2021 End: 03-17-2021 Orders Maddy Yao PA-C Work Phone: [employer]. Start: 03-17-2021 End: 03-17-2021 Maddy Yao PA-C Work Phone: [employer]. Start: 02-14-2021 End: 02-14-2021 Office outpatient visit 15 minutes Maddy Yao PA-C Work Phone: [employer] Start: 01-26-2021 End: 01-26-2021 Subsequent hospital visit by physician Provider [facility] Comment on above: SCREENING Start: 09-06-2020 End: 09-06-2020 Subsequent [facility] visit by [facility] Start: 03-30-2020 End: 03-30-2020 Office outpatient visit 15 minutes Maddy Yao PA-C Work Phone: [employer] Start: 03-10-2020 End: 03-10-2020 Patient encounter procedure Maddy Yao PA-C Work Phone: [employer] Start: 03-10-2020 End: 03-10-2020 Patient encounter status Maddy Yao PA-C Work Phone: [employer]. Start: 03-10-2020 End: 03-10-2020 Maddy Yao PA-C Work Phone: [employer]. Start: 03-08-2020 End: 03-08-2020 Subsequent hospital visit by physician [facility] Comment on above: M85.88 OSTEOPENIA Start: 02-29-2020 End: 02-29-2020 Orders Maddy Yao PA-C Work Phone: [employer]. Start: 02-29-2020 End: 02-29-2020 Maddy Yao PA-C Work Phone: [employer]. Start: 02-24-2020 End: 02-24-2020 Orders Maddy Yao PA-C Work Phone: [employer]. Start: 02-24-2020 End: 02-24-2020 Maddy Yao PA-C Work Phone: [employer]. Start: 01-21-2020 End: 01-21-2020 Subsequent hospital visit by physician [facility] Comment on above: SCREENING Start: 04-09-2019 End: 04-14-2019 Office outpatient visit 15 minutes Maddy Yao PA-C Work Phone: [employer] Start: 02-16-2019 End: 02-18-2019 Nursing evaluation of patient and report Maddy Yao PA-C Work Phone: [employer]. Start: 02-16-2019 End: 02-18-2019 Maddy Yao PA-C Work Phone: [employer] Start: 02-05-2019 End: 02-05-2019 Patient encounter procedure Maddy Yao PA-C Work Phone: [employer] Start: 02-05-2019 End: 02-05-2019 Maddy Yao PA-C Work Phone: [employer] Start: 01-29-2019 End: 01-29-2019 Office outpatient visit 25 minutes Maddy Yao PA-C Work Phone: [employer]. Start: 01-20-2019 End: 01-21-2019 Orders Maddy Yao PA-C Work Phone: [employer]. Start: 01-20-2019 End: 01-21-2019 Maddy Yao PA-C Work Phone: [employer]. Start: 01-16-2019 End: 01-16-2019 Orders Maddy Yao PA-C Work Phone: [employer]. Start: 01-16-2019 End: 01-16-2019 Maddy Yao PA-C Work Phone: [employer]. Start: 10-23-2018 End: 10-23-2018 Office outpatient visit 15 minutes Maddy Yao PA-C Work Phone: [employer]. Start: 06-13-2018 End: 06-13-2018 Orders Maddy Yao PA-C Work Phone: [employer]. Start: 06-13-2018 End: 06-13-2018 Maddy Yao PA-C Work Phone: [employer]. Start: 05-29-2018 End: 05-31-2018 Office outpatient visit 15 minutes Maddy Yao PA-C Work Phone: [employer]. Start: 03-03-2018 End: 03-03-2018 Orders Maddy Yao PA-C Work Phone: [employer]. Start: 03-03-2018 End: 03-03-2018 Maddy Yao PA-C Work Phone: [employer]. Start: 02-27-2018 End: 02-27-2018 Historical Summary Maddy Yao PA-C Work Phone: [employer]. Start: 02-27-2018 End: 02-27-2018 Patient encounter procedure Maddy Yao PA-C Work Phone: [employer]. Start: 02-27-2018 End: 02-27-2018 Patient encounter status Maddy Arreolaer PA-C Work Phone: [employer] Start: 02-27-2018 End: 02-27-2018 Maddy Yao PA-C Work Phone: [employer]. Start: 02-24-2018 End: 02-24-2018 Medication Maddy Arreolaer PA-C Work Phone: [employer]. Start: 02-24-2018 End: 02-24-2018 Maddy Yao PA-C Work Phone: [employer]. Start: 02-20-2018 End: 02-20-2018 Office outpatient visit 15 minutes Maddy Yao PA-C Work Phone: [employer]. Start: 01-23-2018 End: 01-23-2018 Medication Maddy Yao PA-C Work Phone: [employer]. Start: 01-23-2018 End: 01-23-2018 Maddy Yao PA-C Work Phone: [employer]. Start: 01-15-2018 End: 01-15-2018 Historical Summary Maddy Arreolaer PA-C Work Phone: [employer]. Start: 01-15-2018 End: 01-15-2018 Maddy Yao PA-C Work Phone: [employer]. Start: 01-15-2018 End: 01-15-2018 Patient encounter procedure Maddy Yao PA-C Work Phone: [employer]. Start: 01-15-2018 End: 01-15-2018 Maddy Yao PA-C Work Phone: [employer]. Start: 05-23-2017 End: 05-23-2017 Orders Maddy Yao PA-C Work Phone: [employer]. Start: 05-23-2017 End: 05-23-2017 Maddy Yao PA-C Work Phone: [employer]. Start: 04-22-2017 End: 04-22-2017 Medication Maddy Yao PA-C Work Phone: [employer]. Start: 04-22-2017 End: 04-22-2017 Maddy Yao PA-C Work Phone: [employer]. Start: 04-04-2017 End: 04-04-2017 Office outpatient visit 15 minutes Maddy Yao PA-C Work Phone: [employer]. Start: 04-02-2017 End: 04-02-2017 Medication Maddy Yao PA-C Work Phone: [employer]. Start: 04-02-2017 End: 04-02-2017 Maddy Yao PA-C Work Phone: [employer]. Start: 03-25-2017 End: 03-25-2017 Medication Maddy Yao PA-C Work Phone: [employer]. Start: 03-25-2017 End: 03-25-2017 Maddy Yao PA-C Work Phone: [employer]. Start: 03-22-2017 End: 03-22-2017 Office outpatient visit 10 minutes Maddy Yao PA-C Work Phone: [employer]. Start: 10-10-2016 End: 10-10-2016 Office outpatient visit 15 minutes Maddy Yao PA-C Work Phone: [employer]. Start: 06-07-2016 End: 06-07-2016 Patient encounter procedure Maddy Yao PA-C Work Phone: [employer]. Start: 06-07-2016 End: 06-07-2016 Maddy Yao PA-C Work Phone: [employer]. Start: 03-26-2016 End: 03-26-2016 Patient encounter procedure Maddy Yao PA-C Work Phone: [employer]. Start: 03-26-2016 End: 03-26-2016 Maddy Yao PA-C Work Phone: [employer]. Start: 10-13-2015 End: 10-13-2015 Office outpatient visit 10 minutes Maddy Yao PA-C Work Phone: [employer]. Start: 08-23-2015 End: 08-23-2015 Office outpatient visit 15 minutes Maddy Yao PA-C Work Phone: [employer]. Start: 04-14-2015 End: 04-14-2015 Office outpatient visit 15 minutes Maddy Yao PA-C Work Phone: [employer]. Start: 11-09-2014 End: 11-09-2014 Office outpatient visit 15 minutes Maddy Yao PA-C Work Phone: [employer]. Start: 06-14-2014 End: 06-14-2014 Office outpatient visit 15 minutes Maddy Yao PA-C Work Phone: [employer]. Start: 05-11-2014 End: 05-11-2014 Office outpatient visit 25 minutes Maddy Yao PA-C Work Phone: [employer]. Start: 12-18-2013 End: 12-18-2013 Medication Maddy Yao PA-C Work Phone: [employer]. Start: 12-18-2013 End: 12-18-2013 Maddy Yao PA-C Work Phone: [employer]. Start: 11-12-2013 End: 11-12-2013 Orders Maddy Yao PA-C Work Phone: [employer]. Start: 11-12-2013 End: 11-12-2013 Maddy Yao PA-C Work Phone: [employer]. Start: 10-02-2013 End: 10-02-2013 Patient encounter procedure Maddy Yao PA-C Work Phone: [facility] [employer]. Start: 10-02-2013 End: 10-02-2013 Maddy Yao PA-C Work Phone: [employer]. Start: 09-04-2013 End: 09-04-2013 Patient encounter procedure Maddy Yao PA-C Work Phone: [employer]. Start: 09-04-2013 End: 09-04-2013 Maddy Yao PA-C Work Phone: [employer]. Start: 08-28-2013 End: 08-28-2013 Patient encounter procedure Maddy Yao PA-C Work Phone: [employer]. Start: 08-28-2013 End: 08-28-2013 Maddy Yao PA-C Work Phone: [employer]. Start: 12-11-2012 End: 12-11-2012 Patient encounter procedure Maddy Yao PA-C Work Phone: [employer]. Start: 12-11-2012 End: 12-11-2012 Maddy Yao PA-C Work Phone: [employer]. Start: 07-31-2012 End: 07-31-2012 Patient encounter procedure Maddy Yao PA-C Work Phone: [employer]. Start: 07-31-2012 End: 07-31-2012 Maddy Yao PA-C Work Phone: [employer]. Start: 07-01-2012 End: 07-01-2012 Patient encounter procedure Maddy Yao PA-C Work Phone: [employer]. Start: 07-01-2012 End: 07-01-2012 Maddy Yao PA-C Work Phone: [employer]. Start: 05-01-2012 End: 05-01-2012 Orders Maddy Yao PA-C Work Phone: [employer]. Start: 05-01-2012 End: 05-01-2012 Maddy Yao PA-C Work Phone: [employer] Start: 04-15-2012 End: 04-15-2012 Patient encounter procedure Maddy Yao PA-C Work Phone: [employer]. Start: 04-15-2012 End: 04-15-2012 Maddy Yao PA-C Work Phone: [employer]. Start: 10-23-2011 End: 10-23-2011 Laboratory examination ordered as part of a routine general medical examination Maddy Yao PA-C Work Phone: [employer] Start: 10-23-2011 End: 10-23-2011 Orders Maddy Yao PA-C Work Phone: [employer]. Start: 10-23-2011 End: 10-23-2011 Maddy Yao PA-C Work Phone: [employer]. Start: 10-23-2011 End: 10-23-2011 Patient encounter procedure Maddy Yao PA-C Work Phone: [employer]. Start: 10-23-2011 End: 10-23-2011 Maddy Yao PA-C Work Phone: [employer]. Start: 10-12-2011 End: 10-12-2011 Patient encounter procedure Maddy Yao PA-C Work Phone: [employer]. Start: 10-12-2011 End: 10-12-2011 Maddy Yao PA-C Work Phone: [employer]. Start: 09-25-2011 End: 09-25-2011 Patient encounter procedure Maddy Yao PA-C Work Phone: [employer]. Start: 09-25-2011 End: 09-25-2011 Maddy Yao PA-C Work Phone: [employer]. Start: 08-28-2011 End: 08-28-2011 Patient encounter procedure Maddy Arreolaer PA-C Work Phone: [employer]. Start: 08-28-2011 End: 08-28-2011 Maddy Yao PA-C Work Phone: [employer]. Start: 05-14-2011 End: 05-14-2011 Medication Maddy Arreolaer PA-C Work Phone: [employer]. Start: 05-14-2011 End: 05-14-2011 Maddy Yao PA-C Work Phone: [employer]. Start: 05-08-2011 End: 05-08-2011 Patient encounter procedure Maddy Yao PA-C Work Phone: [employer]. Start: 05-08-2011 End: 05-08-2011 Routine general medical examination at a health care facility Maddy Arreolaer PA-C Work Phone: [employer] Start: 05-08-2011 End: 05-08-2011 Maddy Yao PA-C Work Phone: [employer]. Start: 05-07-2011 End: 05-07-2011 Historical Summary Maddy Arreolaer PA-C Work Phone: [employer]. Start: 05-07-2011 End: 05-07-2011 Maddy Yao PA-C Work Phone: [employer]. Start: 04-23-2011 End: 04-23-2011 Patient encounter procedure Maddy Yao PA-C Work Phone: [employer]. Start: 04-23-2011 End: 04-23-2011 Maddy Yao PA-C Work Phone: [employer]. Start: 04-04-2011 End: 04-04-2011 Orders Maddy Yao PA-C Work Phone: [employer]. Start: 04-04-2011 End: 04-04-2011 Maddy Yao PA-C Work Phone: [employer]. Start: 09-07-2010 End: 09-07-2010 Patient encounter procedure Maddy Yao PA-C Work Phone: [employer]. Start: 09-07-2010 End: 09-07-2010 Maddy Yao PA-C Work Phone: [employer]. Start: 08-28-2010 End: 08-28-2010 Medication Maddy Yao PA-C Work Phone: [employer]. Start: 08-28-2010 End: 08-28-2010 Maddy Yao PA-C Work Phone: [employer]. Start: 08-24-2010 End: 08-24-2010 Patient encounter procedure Maddy Yao PA-C Work Phone: [employer]. Start: 08-24-2010 End: 08-24-2010 Maddy Yao PA-C Work Phone: [employer]. Start: 06-14-2010 End: 06-14-2010 Patient encounter procedure Maddy Yao PA-C Work Phone: [employer]. Start: 06-14-2010 End: 06-14-2010 Maddy Yao PA-C Work Phone: [employer]. Start: 05-18-2010 End: 05-18-2010 Patient encounter procedure Maddy Yao PA-C Work Phone: [employer]. Start: 05-18-2010 End: 05-18-2010 Maddy Yao PA-C Work Phone: [employer]. Start: 12-19-2007 Documentation procedure Aleena Martinez MD Work Phone: [facility] Start: 12-19-2007 Historic EMR Joseluis Martinez MD Work Phone: [facility] Start: 11-20-2005 Documentation procedure Aleena Martinez MD Work Phone: [facility] Start: 11-20-2005 Historic EMR Joseluis Martinez MD Work Phone: [facility] Patient encounter procedure Livia Soler RN [facility] Patient encounter status Lachelle Newton LP N [facility]; [facility] Patient encounter status Jluis Soler RN [facility] Physical examination Livia Soler RN [facility]; [facility] Procedures Date Procedure Procedure Detail Performing Clinician Start: 01-21-2025 End: 01-22-2025 Radiologic exam knee complete 4/more views Maddy Yao PA-C Work Phone: Start: 11-17-2024 Screening digital br east tomosynthesis bi Joseluis Martinez MD Work Phone: Start: 08-17-2024 End: 08-17-2024 Radex ribs bi w/posteroant ch minimum 4 views Maddy Yao PA-C Work Phone: Start: 07-22-2024 End: 07-22-2024 Adv care pln/ no alt dcsn mkr docd or refusal Maddy Yao PA-C Work Phone: Start: 07-22-2024 End: 07-22-2024 Depression screening Maddy Castellanos Work Phone: Start: 07-22-2024 End: 07-22-2024 Falls risk assessment documented Maddy Yao PA-C Work Phone: Start: 07-22-2024 End: 07-22-2024 PPPS, subseq visit Maddy Skinner Work Phone: Start: 07-22-2024 End: 07-22-2024 Pt falls assess docd w/o fall/injury past year Maddy Perales Yao PA-C Work Phone: Start: 07-22-2024 End: 07-22-2024 Scr dep neg, no plan reqd Maddy Arreola er PA-C Work Phone: Start: 07-16-2024 End: 07-16-2024 Lab findings surveillance Ana Rosa Vazquez [employer] Start: 07-16-2024 End: 07-16-2024 Lipid panel results documented & reviewed Ana Rosa Vazquez Sujatha [employer] WORK[employer] Start: 07-16-2024 End: 07-16-2024 Ana Rosa Vazquez Sujatha LP N Start: 07-16-2023 Dxa bone density kaleb dy 1/> sites axial cory Martinez MD Work Phone: Start: 07-08-2023 End: 07-08-2023 Adv care pln/ no alt dcsn mkr docd or refusal Maddy Perales Yao PA-C Work Phone: Start: 07-08-2023 End: 07-08-2023 Depression screening Maddy Perales Yao PA -C Work Phone: Start: 07-08-2023 End: 07-08-2023 Falls risk assessment documented Maddy Perales Yao PA-C Work Phone: Start: 07-08-2023 End: 07-08-2023 PPPS, subseq visit Maddy Perales Yao PA- C Work Phone: Start: 07-08-2023 End: 07-08-2023 Pt falls assess docd w/o fall/injury past year Maddy Perales Yao PA-C Work Phone: Start: 07-08-2023 End: 07-08-2023 Scr dep neg, no plan reqd Maddy Arreola er PA-C Work Phone: Start: 07-01-2023 End: 07-01-2023 Lab findings surveillance Filipe MAYFIELD Comment on above: CMP 94 Start: 07-01-2023 End: 07-01-2023 Lipid panel results documented & reviewed Filipe Garcia LPN Comment on above: Abnormal. TC 254, HD L 70, LDL 160, Trig 119 Start: 07-01-2023 End: 07-01-2023 Thyrotropin [Units/volume] in Serum or Plasma Filipe Garcia LPN Comment on above: 1.86 Start: 07-01-2023 End: 07-01-2023 vit D Filipe Garcia LPN Comment on above: Normal. 39 Start: 07-01-2023 End: 07-01-2023 Filipe Garcia LPN Start: 03-14-2023 Screening digital br east tomosynthesis bi Joseluis Martinez MD Work Phone: Start: 12-21-2022 End: 12-21-2022 Chest x-ray Maddy Angella Skinner Work Phone: Start: 12-21-2022 End: 12-26-2022 Ecg routine ecg w/least 12 lds i&r only Maddy Angella BLOOM-Brody Work Phone: Comment on above: Sinus rhythm with oc casional PVCs. Start: 10-11-2022 End: 10-16-2022 Us soft tissue head & neck real time imge docm Maddy Angella BLOOM-C Work Phone: Comment on above: pt will call and giselle edule Start: 05-24-2022 End: 05-24-2022 Adv care pln/ no alt dcsn mkr docd or refusal Maddy Angella BLOOM-C Work Phone: Start: 05-24-2022 End: 05-24-2022 Depression screening Maddybeck BLOOM -C Work Phone: Start: 05-24-2022 End: 05-24-2022 Falls risk assessment documented Maddy BLOOM-C Work Phone: Start: 05-24-2022 End: 05-24-2022 Initial preventive exam Maddy BLOOM-C Work Phone: Start: 05-24-2022 End: 05-24-2022 Pt falls assess docd w/o fall/injury past year Maddy Arreolaer PA-C Work Phone: Start: 05-24-2022 End: 05-24-2022 Scr dep neg, no plan reqd Maddy Arreola er PA-C Work Phone: Start: 05-24-2022 End: 05-24-2022 Screening test visual acuity quantitative bilat Maddy Arreolaer PA-C Work Phone: Start: 05-07-2022 End: 05-09-2022 Radex spine lumbosacral 2/3 views Maddy Arreolaer PA-C Work Phone: Start: 02-15-2022 AKOSUA SCREENING W BATSHEVA Ch inleolae Ormanuelu Work Phone: Start: 04-21-2021 End: 04-21-2021 Depression screening Maddy Arreolaer PA -C Work Phone: Start: 04-21-2021 End: 04-21-2021 Scr dep neg, no plan reqd Maddy Arreola er PA-C Work Phone: Start: 02-14-2021 End: 02-16-2021 Radex sacrum & coccyx minimum 2 views Suzanne Perales Min PA-C Work Phone: Start: 01-26-2021 AKOSUA SCREENING W BATSHEVA Melly inleonard Oryancy Work Phone: Start: 03-10-2020 End: 03-10-2020 Depression screening Maddy Perales Yao PA -C Work Phone: Start: 03-10-2020 End: 07-21-2020 Ecg routine ecg w/least 12 lds i&r only Maddy Arreolaer PA-C Work Phone: Start: 03-10-2020 End: 03-10-2020 Scr dep neg, no plan reqd Maddy Perales Palm er PA-C Work Phone: Start: 02-10-2020 End: 02-10-2020 Bone density scan Filipe Garcia LPN Comment on above: osteopenia; had one done recently and prolia was recommended but she is not taking it Start: 01-21-2020 End: 01-21-2020 Screening mammography Filipe Garcia LPN Comment on above: Normal. Start: 01-21-2020 AKOSUA SCREENING W BATSHEVA Pickard margret Martinez Work Phone: Start: 08-12-2019 End: 08-12-2019 Microscopic examination of cervical Papanicolaou smear Filipe Garcia LPN Comment on above: Normal. 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 [place]---pt state she is UTD- normal Start: 02-16-2019 End: 02-16-2019 Removal sutures under anesthesia same surgeon FLOAT NURSE Start: 02-05-2019 End: 02-05-2019 Punch biopsy skin single lesion Maddy Angella Yao PA-C Work Phone: Start: 05-29-2018 End: 05-29-2018 Flu imm no admin doc yahaira Maddy Angella Palme r PA-C Work Phone: Start: 02-27-2018 End: 02-27-2018 Destruction premalignant lesion 1st Maddy Angella Yao PA-C Work Phone: Start: 01-15-2018 End: 01-15-2018 Body mass index documented Maddy Perales Pal bc PA-C Work Phone: Start: 01-15-2018 End: 01-15-2018 Most recent diastolic blood pressure < 80 mm hg Maddy J Yao PA-C Work Phone: Start: 01-15-2018 End: 01-15-2018 Most recent systolic blood pressure <130 mm hg Maddy Angella Yao PA-C Work Phone: Start: 08-23-2015 End: 08-23-2015 Shaving skin lesion 1 trunk/arm/leg diam 0.5cm/< Ana Rosa Das MD Work Phone: Start: 09-12-2014 End: 09-12-2014 Cholecystectomy Filipe Garcia LPN Start: 06-12-2014 End: 06-12-2014 Screening colonoscopy Filipe Garcia LPN Comment on above: Dr. Colón; next due in 2023 Start: 05-11-2014 End: 05-11-2014 No Known Past Surgical History Filipe Garcia LPN Start: 10-21-2011 End: 10-21-2011 Electrocardiogram with exercise test Filipe Garcia LPN Comment on above: Normal. 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 Filipe Garcia LPN Comment on above: Normal. PTH,INTACT 5 0calcium 9.7 Filipe Barrientosulises Lopezcitlalli Yao PA-C Work Phone: Plan of Treatment Date Care Activity Detail Author Start: 2032 RSV Vaccine (1 - 1-dose 75+ series) RSV Vaccine (1 - 1-dose 75+ series) [facility] Start: 11-17-2025 Screening for malignant neoplasm of breast Mammogram Screening [facility] Start: 03-17-2025 Culture bacterial quanttative colony count urine [employer] Start: 01-21-2025 Radiologic exam knee complete 4/more views [employer] Start: 01-11-2025 [employer] Start: 01-10-2025 Comprehensive metabolic panel [employer] Start: 01-10-2025 Lipid panel [employer] Start: 08-17-2024 Radex ribs bi w/posteroant ch minimum 4 views [employer] Start: 08-17-2024 [employer] Start: 08-12-2024 Advance Directive Discussion Advance Directive Discussion [facility] Start: 07-22-2024 Lipid panel [employer] Start: 07-22-2024 Comprehensive metabolic panel [employer] Start: 07-22-2024 Patient encounter procedure Medical; PHYSICAL - awv [employer]. Start: 22-Jul-2024 13:10-05:00 HALLEY Yao Appointment Request [employer]. Start: 07-16-2024 Nursing evaluation of patient and report Medical; Nurse visit - BW mjp [employer]. Start: 16-Jul-2024 10:40-05:00 NURSE, FLOAT Appointment Request [employer]. Start: 07-16-2024 Assay of thyroid stimulating hormone tsh TSH (THYROID STIMULATING HORMONE) (20574) Start: 16-Jul-2024 09:31-05:00 Request [employer] Start: 07-16-2024 Blood count complete auto&auto difrntl wbc CBC, PLATELETS & AUT DIFF (F) ([id number]) Start: 16-Jul-2024 09:31-05:00 Request [employer] Start: 07-16-2024 Comprehensive metabolic panel CMP w/ GFR* (90803) Start: 16-Jul-2024 09:31-05:00 Request [employer] Start: 07-16-2024 Lipid panel LIPID PANEL (80631) Start: 16-Jul-2024 09:31-05:00 Request [employer] Start: 07-14-2024 Assay of thyroid stimulating hormone tsh TSH (THYROID STIMULATING HORMONE) ([id number]) Start: 14-Jul-2024 Request [employer] Start: 07-14-2024 Blood count complete auto&auto difrntl wbc CBC, PLATELETS & AUT DIFF (F) ([id number]) Start: 14-Jul-2024 Request [employer] Start: 07-14-2024 Comprehensive metabolic panel CMP w/ GFR* ([id number]) Start: 14-Jul-2024 Request [employer] Start: 07-14-2024 Lipid panel LIPID PANEL ([id number]) Start: 14-Jul-2024 [facility] Start: 07-14-2024 Nursing evaluation of patient and report Medical; Nurse visit - BW mjp [facility] Start: 14-Jul-2024 10:40-05:00 NURSE, FLOAT [facility]ointment [facility] Start: 04-12-2024 Covid-19 Vaccine () Covid-19 Vaccine () [facility] Start: 04-12-2024 Covid-19 Vaccine () Covid-19 Vaccine () [facility] Start: 04-12-2024 Influenza vaccination Influenza Vaccine (#1) [facility] Start: 03-14-2024 Screening for malignant neoplasm of breast Mammogram Screening [facility] Start: 08-12-2023 Advance Directive Discussion Advance Directive Discussion [facility] Start: 05-24-2022 Provider [facility] Start: 2022 Pneumococcal Vaccine: 65+ (1 of 1 - PCV) Pneumococcal Vaccine: 65+ (1 of 1 - PCV) [facility] Start: 05-13-2021 Diabetes Screening Diabetes Screening [facility] Start: 05-08-2021 Urine microalbumin profile DTaP,Tdap,Td Vaccine (2 - Td or Tdap) [facility] Start: 2017 RSV Vaccine (1 - 1-dose 60+ series) RSV Vaccine (1 - 1-dose 60+ series) [facility] Start: 2007 Pneumococcal Vaccine: 50+ (1 of 1 - PCV) Pneumococcal Vaccine: 50+ (1 of 1 - PCV) [facility] Start: 2007 Shingrix Vaccine (1 of 2) Shingrix Vaccine (1 of 2) [facility] Start: 2002 Lipid panel Lipid Screening [facility] Start: 2002 Screening for malignant neoplasm of colon [facility] Start: 1975 Anxiety Screening Anxiety Screening [facility] Start: 1975 Depression Screening Depression Screening [facility] Start: 1975 Hepatitis C screening Hepatitis C Screening [facility] Immunizations Immunization Date Immunization Notes Care Provider Gia monroe 06-07-2016 unknown vaccine or immune globulin Maddy Yao PA-C Work Phone: [employer] 06-07-2016 influenza, injectabl e, quadrivalent, contains preservative Maddy Yao PA-C Work Phone: [employer]. Comment on above: Site: Deltoid (Left) VIS Given: * Influenza - Inactivated (03/18/15) 06-07-2016 influenza virus vacc ine, unspecified formulation [facility] 08-23-2015 influenza, seasonal, injectable Maddy Yao PA-C Work Phone: [employer]. Comment on above: Site: Deltoid (Left) VIS Given: * Inactivated Influenza (2015) 08-23-2015 IMMUNIZATION ADMIN ([id number]) Maddy Yao PA-C Work Phone: [employer]. 08-23-2015 Maddy Yao PA-C Work Phone: [employer] 05-11-2014 IMMUNIZATION ADMIN ([id number]) Maddy Yao PA-C Work Phone: [employer] 05-11-2014 Maddy Yao PA-C Work Phone: [employer] 05-11-2014 influenza, seasonal, injectable Maddy Yao PA-C Work Phone: [employer] Comment on above: Site: Deltoid (Left) VIS Given: * Influenza, Inactivated () 12-11-2012 hepatitis A and hepatitis B vaccine Maddy Yao PA-C Work Phone: [employer] Comment on above: Site: Anterolateral Thigh (Left)VIS Given: * Hepatitis A (10/30/05) * Hepatitis A Vaccine (06/05/11) * Hepatitis B (02/26/07) * Hepatitis B (09/13/11) 07-31-2012 hepatitis A and hepatitis B vaccine Maddy Yao PA-C Work Phone: [employer]; [employer] Comment on above: Site: Deltoid (Left) VIS Given: * Hepatitis A (10/30/05) * Hepatitis A Vaccine (06/05/11) * Hepatitis B (02/26/07) * Hepatitis B (09/13/11) 07-31-2012 influenza, seasonal, injectable, preservative free Maddy Yao PA-C Work Phone: [employer]; [employer]. Comment on above: Site: Deltoid (Right ) 07-31-2012 typhoid vaccine, unspecified formulation Maddy Yao PA-C Work Phone: [employer]; [employer]. 07-31-2012 IMMUNIZATION ADMIN ([id number]) Maddy Yao PA-C Work Phone: [employer]; [employer]. 07-31-2012 Maddy Yao PA-C Work Phone: [employer]; [employer]. 05-08-2011 influenza, seasonal, injectable Maddy Yao PA-C Work Phone: [employer]; [employer] Comment on above: Site: Deltoid (Right )VIS Given: * Inactivated Influenza Vaccine (03/22/09) * Inactivated Influenza Vaccine (03/06/11) * Inactivated Influenza Vaccine (03/06/11) * Inactivated Influenza Vaccine (03/06/11) * Inactivated Influenza Vaccine (03/06/11) * VIS Given (Unspecified) * VIS Given (Unspecified) 05-08-2011 tetanus toxoid, redu casa diphtheria toxoid, and acellular pertussis vaccine, adsorbed Maddy Yao PA-C [facility]: [facility] Comment on above: Site: Deltoid (Left) VIS Given: * Tetanus/Diphtheria/(Pertussis) (Td/Tdap) (06/29/08) 06-14-2010 influenza, seasonal, injectable Maddy Yao PA-C Work Phone: [facility] Comment on above: Site: Deltoid (Left) VIS Given: * Inactivated Influenza Vaccine (03/22/09) Payers Date Payer Category Payer Medicare [id number] 2025 Self-pay 2025 Unknown [id number] 2024 Private Health Insurance [facility] [id number] 2024 Medicare [id number] 2023 Medicare [id number] 2023 Medicare [id number] 2022 Unknown [id number] 2013 Unknown [id number] 1955 Unknown [id number] .[id number] 1957 Unknown [id number] .[id number] 1957 Unknown [id number] .[id number] 1957 Unknown [id number] .[id number] 1955 Unknown [id number] .[id number] Unknown [id number] .2.283 Unknown [id number] .[id number] Unknown [id number] .2.462 Social History Date Type Detail Facility Tobacco smoking stat [facility] Unknown if ever smoked [facility] Start: 1955 Sex Assigned At Not on file [facility] Tobacco smoking stat [facility] Tobacco smoking consumption unknown [facility] Start: 07-21-2020 End: 11-17-2024 History of Social function [facility] [employer] Start: 07-21-2020 End: 11-17-2024 Area Deprivation Index [facility] National Score (1-10 0), lower number is lower risk Not on file [facility] Alcohol Use: Alcohol Use: ; Occasional alcohol use. [facility], [facility] Tobacco Use: Tobacco Use: ; F ormer smoker. [facility], [facility] [employer] End: 02-27-2018 Tobacco Use: Tobacco Use: ; Never smoker. Status: Inactive as of 27-Feb-2018 [facility] [employer] Start: 1955 Female [facility] Occasional alcohol use [facility]; [facility] Work Phone: Start: 04-26-2025 Ex-smoker [facility] Progress note 05-04-2025 Note Date & Type Note Facility 05-04-2025 Progress note [facility] Evaluation note Note Date & Type Note Facility Evaluation note Diagnosis Onset Date Resolution Acid reflux acute April 9:00am Screening for colon cancer noneactive May 04, 2025 9:00am [facility] Work Phone: Progress note Note Date & Type Note Facility Progress note Note Date/Time May 04, 2025 9:50am [facility] [address] [place] [address] OFFICE VISIT Date of Service: 05/04/25 MR#: [id number] Acct: [id number] Name: EVELYN CALLE Rep #: [id number] : 1955 Provider: Dr. Lucretia Maurice MD Age/Sex: 70/F Location: [facility] Status: Signed Intake Vital Signs 03/26/19 14:02 05/04/25 09:17 Height 5 ft 1 in 5 ft 1 in Weight: 156 lb BMI 29.5 BP 148/79 H Blood Pressure Location Rt brachial Position Sitting Respiration 17 Pulse 69 Pulse Source Monitor Pulse Oximetry (%) 100 Oxygen Delivery Method room air Intake Visit Reasons: Esophagogastroduodenoscopy Chief Complaint: egd Is patient in pain?: No Allergies No Known Allergies Allergy (Unverified 05/04/25 09:19) Medications ?Medication ?Instructions ?Recorded ?Confirmed ?Type levothyroxine 88 mcg capsule 88 mcg PO DAILY 07/15/18 05/04/25 History ascorbic acid (vitamin C) 1,000 mg 1,000 mg PO DAILY 1 09/21/17 05/04/25 History tablet,extended release calcium carbonate 500 mg PO DAILY@0800 8 05/04/25 History cholecalciferol (vitamin D3) 25 2,000 unit PO DAILY 05/04/25 History mcg (1,000 unit) tablet conjugated estrogens 0.3 mg tablet 0.05 mg PO .2x/w 05/04/25 History (Premarin) pantoprazole 40 mg tablet,delayed 40 mg PO QDAY #30 ta bs 05/04/25 05/04/25 Rx release red yeast rice 600 mg capsule 600 mg PO QDAY 05/04/25 05/04/25 History sucralfate 1 gram tablet 1 g PO QACHS #21 tabs 05/04/25 Rx vitamin K2 45 mcg capsule 45 mcg PO QDAY 05/04/2504/13 History Have you fallen in the past year?: No PFSH Medical History (Updated 05/04/25 @ 09:17 by Larisa Wolfe) Osteoporosis IBS (irritable bowel syndrome) Arthritis Thyroid disease Acid reflux Nausea Surgical History history c-scope (~08/2014) History of esophagogastroduodenoscopy (EGD) (~08/2014) History of laparoscopic cholecystectomy (~2014) Family History Grandfather Diabetes Heart disease Grandmother Heart disease Mother Hypertension Cancer lung Social History Smoking Status: Former smoker alcohol intake: never substance use type: does not use additional social history: DOES NOT USE ASPIRIN DOES NOT USE IBUPROFEN HPI HPI HPI: 70-year-old female presents due to worsening reflux symptoms. Patient states she was on Prevacid but she was having a lot more nausea on and off throughout the day patient has been on Protonix 40 mg p.o. daily for the last 2 weeks states that it is much improved but does still have occasional nausea that is tolerable. Patient states she can get this on and off throughout the day. It did get worse over the last 3 weeks. Patient denies any abdominal pain with this. Patient's last colonoscopy was in 2014 negative per patient. Patient hasbowel movements daily denies any blood denies any family history of colon cancer. Patient did have EGD previously with tn July 2018?biopsy showed mild gastritis and some chronic inflammation of the GE junction, the patient wason pantoprazole for about a month around this time. ROS General General: Yes fatigue; No weight change, appetite, colon cancer, breast cancer or weakness HEENT HEENT: No difficulty swallowing, eye injury, eye surgery, swollen glands or hoarseness Endo Endocrine: Yes thyroid disease; No diabetes mellitus, thyroid cancer, Hair loss, heat intolerance or cold intolerance Skin Skin: No rash or changing moles Musc Musculoskeletal: No back problems, arthritis, rheumatoid arthritis, gout or joint pain Cardio Cardiovascular: No murmur, pacemaker, heart disease, atrial fibrillation, high blood pressure, heart attack, heart stent, palpitations, shortness of breath with exertion or chest pain Psych Psychiatric: No depression, anxiety or hearing voices Resp Respiratory: No shortness of breath, No sleep apnea, No cough, No COPD, No asthma, No emphysema and No wheezing Gastro Gastrointestinal: No abdominal pain, Yes nausea or vomiting, No diarrhea, No constipation, No blood in stool, Yes acid reflux, No hemorrhoids, No ulcers, No gallbladder problem and No black,tarry stools Franc Hematologic: No blood thinners, No blood disorders, No bleeding, No anemia and No blood clots Neuro Neurologic: No system reviewed and no additional complaints, except as documented, No as per HPI, No abnormal gait, No abnormal hearing, No abnormal movements, No abnormal speech, No behavioral changes, No burning sensations, No confusion, No convulsions, No disequilibrium, No dizziness, No localized weakness, No frequent falls, No headache(s), No lack of coordination, No loss ofvision, No memory loss, No numbness, No other visual disturbances, No radicular pain, No restless legs, No sensory deficit, No syncope, No tingling, No tremor(s), No weakness and No other Exam Const General: cooperative, healthy appearing, comfortable and no acute distress [facility] Head: normocephalic and atraumatic Neck Neck: supple Resp Effort & Inspection: normal respiratory effort Cardio Rate: regular rate GI Inspection: non-distended Palpation: soft and nontender Skin General: no rashes or lesions noted Neuro General: CN's II-XI intact bilaterally Extrem General: normal to inspection Psych Mental Status: mental status grossly normal Attitude: cooperative Assessment and Plan Assessment and Plan (1) Acid reflux: Status: Acute (2) Screening for colon cancer: Medications: New sucralfate Take an hour before meals (skip breakfast due to levothyroxine) and at bedtime 1 g PO QACHS 21 tabs 1RF pantoprazole 40 mg PO QDAY 30 tabs 3RF Plan Since patient still has some symptoms we will plan to give her Carafate for onlyabout a week with a refill if she feels like she needs it. Will have her skip the morning dose due to levothyroxine recommend her taking the pantoprazole at night due to levothyroxine. This was all discussed with the patient. I have discussed the above with the patient. I have offered the patient esophagogastroduodenoscopy and colonoscopy for evaluation. I have explained the risks/benefits [...] and the patient has no further questions. The patient has been given instructions for the colon cleansing preparation. 1 day of clears, MiraLAX Dulcolax prep. Theresa Maurice M.D. Pager: [phone] [facility] [address] [place] [address], [address] [place] [id number] Office: [phone] Coding Level of Care Code Off vis,new,level 3 Diagnoses Acid reflux K21.9 Screening for colon cancer Z12.11 Clinical Quality Measures Falls Risk Screening/Assistive Devices Have you fallen in the past year?: No 05/04/25 1318 <Electronically signed by Theresa Kerr am, MD> Date _ Theresa Maurice MD Cosigner Signature: Date (if applicable) CC: WOLF Garcia ~ [facility] Work Phone: Reason for referral (narrative) Note Date & Type Note Facility Reason for referral (narrative) No reason for referral information available [facility] Work Phone: Summary Purpose Family History No Family History Records Found Diabetes Mellitus Type II Status:Active Commen ts:Grandfather Heart Disease Status:Active Comments:Grandmo ther Hypertension Status:Active Comments:Mother. Lung Cancer Status:Active Comments:Grandmo ther Diabetes Mellitus Type II Status:Active Commen ts:Grandfather Heart Disease Status:Active Comments:Grandmo ther Hypertension Status:Active Comments:Mother. Lung Cancer Status:Active Comments:Grandmo ther Diabetes Mellitus Type II Status:Active Commen ts:Grandfather Heart Disease Status:Active Comments:Grandmo ther Hypertension Status:Active Comments:Mother. Lung Cancer Status:Active Comments:Grandmo ther Diabetes Mellitus Type II Status:Active Commen ts:Grandfather Heart Disease Status:Active Comments:Grandmo ther Hypertension Status:Active Comments:Mother. Lung Cancer Status:Active Comments:Grandmo ther Diabetes Mellitus Type II Status:Active Commen ts:Grandfather Heart Disease Status:Active Comments:Grandmo ther Hypertension Status:Active Comments:Mother. Lung Cancer Status:Active Comments:Grandmo ther Diabetes Mellitus Type II Status:Active Commen ts:Grandfather Heart Disease Status:Active Comments:Grandmo ther Hypertension Status:Active Comments:Mother. Lung Cancer Status:Active Comments:Denzel alegria Grandmother, Mother (hx of smoking) Diabetes Mellitus Type II Status:Active Commen ts:Grandfather Heart Disease Status:Active Comments:Grandmo ther Hypertension Status:Active Comments:Mother. Lung Cancer Status:Active Comments:Denzel alegria Grandmother, Mother (hx of smoking) Diabetes Mellitus Type II Status:Active Commen ts:Grandfather Heart Disease Status:Active Comments:Grandmo ther Hypertension Status:Active Comments:Mother. Lung Cancer Status:Active Comments:Denzel alegria Grandmother, Mother (hx of smoking) Diabetes Mellitus Type II Status:Active Commen ts:Grandfather Heart Disease Status:Active Comments:Grandmo ther Hypertension Status:Active Comments:Mother. Lung Cancer Status:Active Comments:Patersuze alegria Grandmother, Mother (hx of smoking) Diabetes Mellitus Type II Status:Active Commen ts:Grandfather Heart Disease Status:Active Comments:Grandmo ther Hypertension Status:Active Comments:Mother. Lung Cancer Status:Active Comments:Patersuze alegria Grandmother, Mother (hx of smoking) Diabetes Mellitus Type II Status:Active Commen ts:Grandfather Heart Disease Status:Active Comments:Grandmo ther Hypertension Status:Active Comments:Mother. Lung Cancer Status:Active Comments:Patersuze alegria Grandmother, Mother (hx of smoking) Diabetes Mellitus Type II Status:Active Commen ts:Grandfather Heart Disease Status:Active Comments:Grandmo ther Hypertension Status:Active Comments:Mother. Lung Cancer Status:Active Comments:Denzel alegria Grandmother, Mother (hx of smoking) Diabetes Mellitus Type II Status:Active Commen ts:Grandfather Heart Disease Status:Active Comments:Grandmo ther Hypertension Status:Active Comments:Mother. Lung Cancer Status:Active Comments:Denzel alegria Grandmother, Mother (hx of smoking) Diabetes Mellitus Type II Status:Active Commen ts:Grandfather Heart Disease Status:Active Comments:Grandmo ther Hypertension Status:Active Comments:Mother. Lung Cancer Status:Active Comments:Denzel alegria Grandmother, Mother (hx of smoking) Diabetes Mellitus Type II Status:Active Commen ts:Grandfather Heart Disease Status:Active Comments:Grandmo ther Hypertension Status:Active Comments:Mother. Lung Cancer Status:Active Comments:Denzel alegria Grandmother, Mother (hx of smoking) Diabetes Mellitus Type II Status:Active Commen ts:Grandfather Heart Disease Status:Active Comments:Grandmo ther Hypertension Status:Active Comments:Mother. Lung Cancer Status:Active Comments:Denzel alegria Grandmother, Mother (hx of smoking) Diabetes Mellitus Type II Status:Active Commen ts:Grandfather Heart Disease Status:Active Comments:Grandmo ther Hypertension Status:Active Comments:Mother. Lung Cancer Status:Active Comments:Denzel alegria Grandmother, Mother (hx of smoking) Diabetes Mellitus Type II Status:Active Commen ts:Grandfather Heart Disease Status:Active Comments:Grandmo ther Hypertension Status:Active Comments:Mother. Lung Cancer Status:Active Comments:Denzel alegria Grandmother, Mother (hx of smoking) Diabetes Mellitus Type II Status:Active Commen ts:Grandfather Heart Disease Status:Active Comments:Grandmo ther Hypertension Status:Active Comments:Mother. Lung Cancer Status:Active Comments:Denzel alegria Grandmother, Mother (hx of smoking) Diabetes Mellitus Type II Status:Active Commen ts:Grandfather Heart Disease Status:Active Comments:Grandmo ther Hypertension Status:Active Comments:Mother. Lung Cancer Status:Active Comments:Denzel alegria Grandmother, Mother (hx of smoking) Diabetes Mellitus Type II Status:Active Commen ts:Grandfather Heart Disease Status:Active Comments:Grandmo ther Hypertension Status:Active Comments:Mother. Lung Cancer Status:Active Comments:Denzel alegria Grandmother, Mother (hx of smoking) Diabetes Mellitus Type II Status:Active Commen ts:Grandfather Heart Disease Status:Active Comments:Grandmo ther Hypertension Status:Active Comments:Mother. Lung Cancer Status:Active Comments:Denzel alegria Grandmother, Mother (hx of smoking) Diabetes Mellitus Type II Status:Active Commen ts:Grandfather Heart Disease Status:Active Comments:Grandmo ther Hypertension Status:Active Comments:Mother. Lung Cancer Status:Active Comments:Denzel alegria Grandmother, Mother (hx of smoking) Relationship Condition Age at Onset Recorded Date/T zaina grandfather Diabetes mellitus Unknown Cardiac disease Unknown grandmother Cardiac disease Unknown mother Hypertension Unknown Malignant neoplasm Unknown Advance Directives No Advanced Directives Records FoundNo Advanced Directives Records FoundNo Advanced Directives Records FoundNo Advanced Directives Records FoundNo Advanced Directives Records FoundNo Advanced Directives Records Found Chief Complaint and Reason for Visit Chief Complaint Admit Date Esophagogastroduodenoscopy April 9:00am Reason for Visit Admit Date Acid reflux May 04, 2025 9:00am Screening for colon cancer April 9:00am Additional Source Comments Source Comments (unrecognize d section and content) In the event this informatio n is protected by the Federal Confidentiality of Alcohol and Drug Abuse Patient Records regulations: The Federal rules restrict any use of the information to criminally investigate or prosecute any alcohol or drug abuse patient.[facility] the event this information is protected by the Federal Confidentiality of Alcohol and Drug Abuse Patient Records regulations: The Federal rules restrict any use of the information to criminally investigate or prosecute any alcohol or drug abuse patient.[facility] the event this information is protected by the Federal Confidentiality of Alcohol and Drug Abuse Patient Records regulations: The Federal rules restrict any use of the information to criminally investigate or prosecute any alcohol or drug abuse patient.[facility] Center[facility] the event this information is protected by the Federal Confidentiality of Alcohol and Drug Abuse Patient Records regulations: The Federal rules restrict any use of the information to criminally investigate or prosecute any alcohol or drug abuse patient.[facility] Center[facility] the event this information is protected by the Federal Confidentiality of Alcohol and Drug Abuse Patient Records regulations: The Federal rules restrict any use of the information to criminally investigate or prosecute any alcohol or drug abuse patient.[facility] Center[facility] the event this information is protected by the Federal Confidentiality of Alcohol and Drug Abuse Patient Records regulations: The Federal rules restrict any use of the information to criminally investigate or prosecute any alcohol or drug abuse patient.[facility] Center[facility] the event this information is protected by the Federal Confidentiality of Alcohol and Drug Abuse Patient Records regulations: The Federal rules restrict any use of the information to criminally investigate or prosecute any alcohol or drug abuse patient.[facility] Center[facility] the event this information is protected by the Federal Confidentiality of Alcohol and Drug Abuse Patient Records regulations: The Federal rules restrict any use of the information to criminally investigate or prosecute any alcohol or drug abuse patient.[facility] Center[facility] the event this information is protected by the Federal Confidentiality of Alcohol and Drug Abuse Patient Records regulations: The Federal rules restrict any use of the information to criminally investigate or prosecute any alcohol or drug abuse patient.[facility] Center[facility] the event this information is protected by the Federal Confidentiality of Alcohol and Drug Abuse Patient Records regulations: The Federal rules restrict any use of the information to criminally investigate or prosecute any alcohol or drug abuse patient.[facility] Center[facility] the event this information is protected by the Federal Confidentiality of Alcohol and Drug Abuse Patient Records regulations: The Federal rules restrict any use of the information to criminally investigate or prosecute any alcohol or drug abuse patient.[facility] INFORMATION SOURCE (unrecogn ized section and content) DATE CREATED AUTHOR 02/21/2022 [facility] DATE CREATED AUTHOR AUTHOR'S ORGANIZ ATION 10/13/2022 [facility] DATE CREATED AUTHOR AUTHOR'S ORGANIZ ATION 11/18/2024 [facility] DATE CREATED AUTHOR AUTHOR'S ORGANIZ ATION 04/23/2025 [facility] DATE CREATED AUTHOR AUTHOR'S ORGANIZ ATION 04/28/2025 [facility] DATE CREATED AUTHOR AUTHOR'S ORGANIZ ATION 06/23/2025 [facility] Teams (unrecognized sec tion and content) Team Status: Active Member Role/Relationship Status Dates WOLF Barone Primary care physician Active Team Status: Inactive Member Role/Relationship Status Dates WOLF Barone Primary care physician Active Start: May 04, 2025 End: May 04, 2025 WOLF Barone Referring Provider Active Start: May 04, 2025 End: May 04, 2025 Dr. Theresa Maurice MD Attending physician Active Start: May 04, 2025 End: May 04, 2025 Goals (unrecognized section and content) Goals may be documented in a n alternate section FOR RECORDS PERTAINING TO PATIENTS WHO ARE OR HAVE BEEN ENROLLED IN A CHEMICAL DEPENDENCY/SUBSTANCEABUSE PROGRAM, SOME INFORMATION MAY BE OMITTED. This clinical summary was aggregated from multiple sources. Caution should be exercised in using it in the provision of clinical care. This summary normalizes information from multiple sources, and as a consequence, information in this document may materially change the coding, format and clinical context of patient data. In addition, data may be omitted in some cases. CLINICAL DECISIONS SHOULD BE BASED ON THE PRIMARY CLINICAL RECORDS. [facility] [employer] [facility]. provides no warranty or guarantee of the accuracy or completeness of information in this document.
[2025-06-23] MEDS: Lactated Ringers 1,000 ML 15 ML IV (07:20)
--- NOTE | 2025-06-23 07:20 | H&P.OPEN ---
HPI - General General Date of Service: 06/23/25 HPI Narrative MANSOOR OSMAN, is a 70 F who presents for EGD and colonoscopy due to GERD as well as screening colonoscopy. Patient did take Carafate for 2 weeks after the appointment states the reflux symptoms have improved denies any symptoms on her medication currently. Last visit 05/04/2025 [facility] HPI: 70-year-old female presents due to worsening reflux symptoms. Patient states she was on Prevacid but she was having a lot more nausea on and off throughout the day patient has been on Protonix 40 mg p.o. daily for the last 2 weeks states that it is much improved but does still have occasional nausea that is tolerable. Patient states she can get this on and off throughout the day. It did get worse over the last 3 weeks. Patient denies any abdominal pain with this. Patient's last colonoscopy was in 2014 negative per patient. Patient has bowel movements daily denies any blood denies any family history of colon cancer. Patient did have EGD previously with ri July 2018–biopsy showed mild gastritis and some chronic inflammation of the GE junction, the patient was on pantoprazole for about a month around this time. [facility] Medical History (Updated 06/23/25 @ 07:[address] Theresa Maurice MD) Wears glasses Former smoker Gastric reflux Cardiology follow-up encounter History of echocardiogram Osteoporosis IBS (irritable bowel syndrome) Arthritis Thyroid disease Acid reflux Nausea Home Medications Medication Instructions Recorded Last Taken Type levothyroxine 88 mcg capsule 88 mcg PO DAILY 07/15/18 06/23/25 04:30 History ascorbic acid (vitamin C) 1,000 mg 1,000 mg PO DAILY 07/21/18 Unknown History tablet,extended release Held on 06/22/25. Instructions: UNTIL AFTER PROCEDURE 06/23/2025 calcium carbonate 500 mg PO DAILY@0800 07/21/18 Unknown History Held on 06/22/25. Instructions: UNTIL AFTER PROCEDURE 06/23/2025 cholecalciferol (vitamin D3) 25 2,000 unit PO DAILY 07/21/18 Unknown History mcg (1,000 unit) tablet Held on 06/22/25. Instructions: UNTIL AFTER PROCEDURE 06/23/2025 conjugated estrogens 0.3 mg tablet 0.05 mg PO .2x/w 05/04/25 Unknown History (Premarin) pantoprazole 40 mg tablet,delayed 40 mg PO QDAY #30 tabs 05/04/25 Unknown Rx release red yeast rice 600 mg capsule 600 mg PO QDAY 05/04/25 Unknown History sucralfate 1 gram tablet 1 g PO QACHS #21 tabs 05/04/25 Unknown Rx vitamin K2 45 mcg capsule 45 mcg PO QDAY 05/04/25 Unknown History Held on 06/22/25. Instructions: UNTIL AFTER PROCEDURE 06/23/2025 famotidine 20 mg tablet (Acid 20 mg PO BID 06/22/25 Unknown History Controller) omega 8-ulf-ljl-fish oil 1,200 mg 1 cap PO DAILY 06/22/25 06/21/25 History (144 mg-216 mg) capsule (Fish Oil) Allergy/AdvReac Type Severity Reaction Status Date / Time No Known Allergies Allergy Verified 06/23/25 07:18 Family History Grandfather Diabetes Heart disease Grandmother Heart disease Mother Hypertension Cancer lung Surgical History history c-scope (~08/2014) History of esophagogastroduodenoscopy (EGD) (~08/2014) History of laparoscopic cholecystectomy (~2014) Social History Smoking Status: Former smoker alcohol intake: never substance use type: does not use additional social history: DOES NOT USE ASPIRIN DOES NOT USE IBUPROFEN Past Medical/Surgical History Planned Operation Planned Operative Procedure(s): COLONOSCOPY, EGD S.O.S: No Previous Hospitalizations/Surgeries HX Hospitalizations: No HX of Surgeries: GALLBLADDER 2014 EGD COLONOSCOPY Any Problems With Anesthesia: No You/Your Family Experience Fever (Hyperthermia) With Anes: No Cholinesterase deficiency: No Cardiovascular Hx Chest Pain within Last 2 months: No Hx of Irregular Heartbeat and/or Afib: No Hx Heart Attack: No Hx Congestive Heart Failure: No Hx Rheumatic Fever: No Hx Hypertension: No Hx Internal Defibrillator: No Hx Pacemaker: No Hx Cardiac Catheterization: No Hx Cardiac Surgery/Stents/Etc.: No Hx Stress Test: Yes (OVER 5 YRS AGO) Hx Pain in Legs when Walking/Leg Cramps: No Respiratory Chronic Cough: No HX of Shortness of Breath: No Hoarseness: No Hx Chronic Obstructive Pulmonary Disease (COPD): No Hx Asthma: No Hx Emphysema: No Hx Sleep Apnea: No Hx Respiratory Tract Infection/Cold (presently): No Do You Snore Loudly (louder than talking or can be heard): No Do You Often Feel Tired/ Fatigued/ Sleepy Dring Daytime?: No Has Anyone Observed You Stop Breathing During Sleep?: No Result (for STOP score): Negative Hx Smoking: Yes (QUIT 30 YRS AGO) Smoking Status: Former smoker Gastrointestinal Controlled With Meds: Yes Hx Gastrointestinal Disorders: No Hx Gastrointestinal Bleed: No Hx Ulcer: No Hx Hiatal Hernia: No Difficulty Chewing/Swallowing: No Special diet followed at home: No Hx Unplanned Weight Loss of 20#: No HX Unplanned Weight Gain of 20#: No Neurological Hx Seizures: No HX Syncope/Blackout Spells/Unconsciousness: No Hx Transient Ischemic Attacks (TIA): No Hx Multiple Sclerosis: No Hx Parkinson's Disease: No Hx Head/Neck Injury: No Hx Headaches: No Hx Back Injury/Pain: No Recent Onset of Speech Difficulty: No Restless Legs: No Does patient have nerve stimulator: No Blood Disorder Hx Leukemia: No Bleeding Tendencies: No Hx Deep Vein Thrombosis: Yes (DVT TEENAGER) Hx High Cholesterol: No Blood Transmitted Disease: No Hx Hepatitis: No Hx Cirrhosis: No Hx Anemia: No Hx Blood Disorders: No Reproduction Is Patient Lactating: No Hx Hysterectomy: No Hx Tubal Ligation: No Are You Post Menopause: Yes Genitourinary Hx Renal Disease: No Musculoskeletal Hx Arthritis: Yes Hx Rheumatoid Arthritis: No Hx Gout: No Recent Onset of an Orthopedic Problem: No Endocrine Hx Diabetes: No Thyroid Disease: Yes (ON MED) Hx Steroid Therapy: No Psycho/Social Hx Substance Use: No Hx Alcohol Use: No Hx Anxiety: No Hx Depression: No Mental Illness: No Hx Dementia: No Miscellaneous Hx Cancer: No Recent Exposure to Contagious Disease: No Hx of C-Diff: No Any Loose Teeth: No (LOWER PARTIAL) Allergies No Known Allergies Allergy (Verified 06/23/25 07:18) Discharge After D/C, Where Do you Plan to Go: Return Home From the [facility] History Number of Risk Factors: 3 Physical Exam Const alert, oriented x3 and no apparent distress HEENT normocephalic and head/scalp atraumatic Resp normal respiratory effort Cardio regular rate GI soft to palpation and non-tender; Negative for non-distended Palpation: Negative for guarding Extremity no clubbing, cyanosis or edema Skin no rashes or lesions noted Neuro CN's II-XII intact bilaterally Psych mental status grossly normal Assessment & Plan Assessment/Plan (1) Acid reflux: (2) Screening for colon cancer: Surgery Risks - Colonoscopy I discussed with the patient the risks of the procedure: Yes Risks Include but are not Limited To: Plan for EGD and colonoscopy risks include but are not limited to: Bleeding, perforation requiring further surgery, inability to complete colonoscopy requiring barium enema.
--- NOTE | 2025-06-23 07:53 | PCM.PRE.AN2 ---
ASA Classification* ASA Classification ASA Classification: 2 (GERD, hypothyroid) Assessment & Plan Anesthesia* Anesthesia Assessment Anesthesia Assessment: Discussed sedation and/or anesthesia options, risks, benefits, and alternatives with patient/parents/legal guardian/POA. Questions invited. The patient/parents/legal guardian/POA seems to understand and agrees to proceed with anesthesia plan. Reviewed the physical assessment, medical history, allergy history and patient home medications list prior to surgery/procedure/anesthetic and documented any changes. Performed airway and anesthesia risk assessments. Anesthesia Type Anesthesia Type: MAC History Source History Obtained from:: Patient and Chart Anesthesia Focused Assessment* Temperature: 99 F Pulse Rate: 78 Blood Pressure: 127/78 Respiratory Rate: 16 Pulse Ox: 100 Oxygen Delivery Method: Room Air Airway Assessment Mouth opens: >3 cm Mallampati Score: II Neck Range of motion (ROM): Full ROM Labs Anesthesia Preop lab: CBC CHEMISTRY COAG Pre-Assessment Diagnosis/Proposed Procedure Planned Operative Procedure(s): COLONOSCOPY, EGD Anesthesia History Anesthesia History - temporary data entry clerk: Anesthesia History - temporary data entry clerk Hx Hospitalization No 06/23/25 07:21 Any Problems With Anesthesia No 06/23/25 07:21 Cholinesterase deficiency No 06/23/25 07:21 You/Your Family Experience No 06/23/25 07:21 fever (hyperthermia) with Relationship Recent Exposure to Contagious No 06/23/25 07:21 Disease Does patient have nerve No 06/23/25 07:21 stimulator Patient instructed to have device shut off --Does patient have Pacemaker No 06/23/25 07:21 or ICD? When Was Last Pacemaker Check QUESTION #4 FULL TEXT: You/Your Family Experience fever (hyperthermia) with Anesthesia Last Oral Intake Last Oral intake: Last Oral Intake NPO since 04:30 06/23/25 07:21 Meds taken in AM with sips of Yes 06/23/25 07:21 water? Meds patient instructed to take am of surgery PONV PONV - temporary data entry clerk: PONV - temporary data entry clerk Female Yes 06/22/25 08:44 HX of Motion Sickness No 06/22/25 08:44 HX of N/V After Surgery No 06/22/25 08:44 Non-Smoker Yes 06/22/25 08:44 Duration of Surgery greater No 06/22/25 08:44 than 60 minutes Number of Risk Factors 2 06/22/25 08:44 PONV Score Moderate Risk 06/22/25 08:44 Height & Weight Height & Weight: Anesthesia: Height & Weight Height 5 ft 1 in 06/23/25 07:21 Weight: 68 kg 06/23/25 07:21 Body Mass Index (BMI) 28.3 06/23/25 07:21 Respiratory Assessment Respiratory Assessment - temporary data entry clerk: Respiratory Tract Infection Hx - temporary data entry clerk Hx Respiratory Tract Infection No 06/23/25 07:21 STOP Sleep Apnea STOP Sleep Apnea - temporary data entry clerk: STOP Sleep Apnea - temporary data entry clerk Hx Hypertension No 06/23/25 07:21 Hx Sleep Apnea No 06/23/25 07:21 CPAP BIPAP Do you snore loudly (louder No 06/23/25 07:21 than talking or can be heard Do you often feel tired/ No 06/23/25 07:21 fatigued/ sleepy during daytime? Has anyone observed you stop No 06/23/25 07:21 breathing during sleep? STOP Results Negative 06/23/25 07:21 QUESTION #5 FULL TEXT : Do you snore loudly (louder than talking or can be heard through closed doors)? Tobacco Use History Tobacco Use History - temporary data entry clerk: Tobacco Use History - temporary data entry clerk Tobacco Use Smoking Status Former smoker 06/23/25 07:21 Hx Tobacco Use No 06/22/25 08:44 Years Smoking Packs Smoked per Day Smoking Cessation Date was No - quit smoking greater 06/22/25 08:44 within the last 15 years than 15 years ago Hx Smoking Cessation Date Hx Smoking Cessation Counseling Hematologic Medial History Hematologic Hx - temporary data entry clerk: Hematologic Medical Hx - neurodiagnostic technician Hx of Blood Transfusion No 06/22/25 08:44 Hx of Transfusion in last 3 No 06/22/25 08:44 Months Date of Last Transfusion (if within last 3 months) Ever experience any problems No 06/22/25 08:44 with transfusion(s)? Specify any problems Hx of Preganancy in last 3 No 06/22/25 08:44 Months Nurse Filling Out Transfusion [email or web address] 06/22/25 08:44 & Questions: Date: 06/22/25 06/22/25 08:44 Time: 08:46 06/22/25 08:44 Patient unable to answer at this time (ie. confused, unrespo /Reproduction History /Reproductive History - temporary data entry clerk: /Reproductive Hx- temporary data entry clerk Hx Now Gestational Age (in weeks): EDC: Hx Hx Para Hx Section SAB No 06/22/25 08:44 Does the father of the baby or his family experience fever w Father of the baby Malignant Hypertension history comment Active Medications Active Medications: Current Medications Generic Name Dose Route Start Last Admin Trade Name Freq PRN Reason Stop Dose Admin Lactated Ringer's 1,000 mls @ 15 mls/hr 06/23/25 07:15 06/23/25 07:20 IV 15 mls/hr .Q48H FORD Administration PFSH Medical History (Updated 06/23/25 @ 07:[address] Theresa Maurice MD) Wears glasses Former smoker Gastric reflux Cardiology follow-up encounter History of echocardiogram Osteoporosis IBS (irritable bowel syndrome) Arthritis Thyroid disease Acid reflux Nausea Home Medications Medication Instructions Recorded Last Taken Type levothyroxine 88 mcg capsule 88 mcg PO DAILY 07/15/18 06/23/25 04:30 History ascorbic acid (vitamin C) 1,000 mg 1,000 mg PO DAILY 07/21/18 Unknown History tablet,extended release Held on 06/22/25. Instructions: UNTIL AFTER PROCEDURE 06/23/2025 calcium carbonate 500 mg PO DAILY@0800 07/21/18 Unknown History Held on 06/22/25. Instructions: UNTIL AFTER PROCEDURE 06/23/2025 cholecalciferol (vitamin D3) 25 2,000 unit PO DAILY 07/21/18 Unknown History mcg (1,000 unit) tablet Held on 06/22/25. Instructions: UNTIL AFTER PROCEDURE 06/23/2025 conjugated estrogens 0.3 mg tablet 0.05 mg PO .2x/w 05/04/25 Unknown History (Premarin) pantoprazole 40 mg tablet,delayed 40 mg PO QDAY #30 tabs 05/04/25 Unknown Rx release red yeast rice 600 mg capsule 600 mg PO QDAY 05/04/25 Unknown History sucralfate 1 gram tablet 1 g PO QACHS #21 tabs 05/04/25 Unknown Rx vitamin K2 45 mcg capsule 45 mcg PO QDAY 05/04/25 Unknown History Held on 06/22/25. Instructions: UNTIL AFTER PROCEDURE 06/23/2025 famotidine 20 mg tablet (Acid 20 mg PO BID 06/22/25 Unknown History Controller) omega 1-ewj-das-fish oil 1,200 mg 1 cap PO DAILY 06/22/25 06/21/25 History (144 mg-216 mg) capsule (Fish Oil) Allergy/AdvReac Type Severity Reaction Status Date / Time No Known Allergies Allergy Verified 06/23/25 07:18 Family History Grandfather Diabetes Heart disease Grandmother Heart disease Mother Hypertension Cancer lung Surgical History history c-scope (~08/2014) History of esophagogastroduodenoscopy (EGD) (~08/2014) History of laparoscopic cholecystectomy (~2014) Social History Smoking Status: Former smoker alcohol intake: never substance use type: does not use additional social history: DOES NOT USE ASPIRIN DOES NOT USE IBUPROFEN Review of Systems (Anesthesia) ROS Narrative System reviewed and no additional complaints, except as documented. Physical Exam Const alert, oriented x3 and average body habitus Resp normal respiratory effort, normal air movement and clear to auscultation bilaterally Cardio regular rate, regular rhythm and no murmurs; Negative for diaphoretic
--- NOTE | 2025-06-23 08:30 | COLBX_PTH ---
PATIENT: MANSOOR OSMAN LOC: EN U#:[id number] AGE/SX: 70/F ROOM: RE06/23/[address]: Dr. Theresa Maurice MD : 1955 BED: DIS: 06/23/2025 SPEC #: [id number] RECD: 06/23/25 12:02 STATUS: MYRIAM ZEINA #: [id number] VITO: 06/23/25 08:[address]: Theresa Maurice DEPT: SURGICAL PATHOLOGY RECD BY: Juan Pearson ENTERED: 06/23/25 13:44 SP TYPE: COLON BX OTHR DR: WOLF Garcia Tissues: A - Gastric mucous membrane Procedures: Immunohistochemical Stains Surgery Specimen Level IV HEADER OPERATION: Colonoscopy, EGD with biopsy PRE-OP DIAGNOSIS: Acid reflux, screening for colon cancer TISSUE SUBMITTED: A- Antrum biopsy MICROSCOPIC DIAGNOSIS A. Stomach, antrum, biopsy: - Pyloric mucosa with slight chronic inflammation - An immunohistochemical stain for Helicobacter pylori is negative MICROSCOPIC DESCRIPTION Slides are reviewed. All matched controls reacted appropriately. These tests were developed and their performance characteristics determined by [facility]. They may not have been cleared or approved by the U.S. Food and Drug Administration. The FDA has determined that such clearance or approval is not necessary. The above immunohistochemical markers are viewed by the Pathologist. GROSS DESCRIPTION A. Received in fixative is one container labeled with the patient's name and designated "Antrum biopsy." The specimen consists of one irregular fragment of carter tissue that measures 0.5 cm. The specimen is totally submitted in one cassette. ME 06/23/2025 CPT:97968,19592
--- NOTE | 2025-06-23 09:28 | OP.EGD_ITS ---
Patient Name: Evelyn Calle Procedure Date: 06/23/2025 8:56 AM Date of : 1955 Age: 70 Procedure: Upper GI endoscopy Indications: Heartburn Providers: Theresa Maurice MD Referring MD: Maddy Yao Medicines: Monitored Anesthesia Care Patient Profile: This is a 70 year old female. Complications: No immediate complications. Procedure: Pre-Anesthesia Assessment: - Prior to the procedure, a History and Physical was performed, and patient medications and allergies were reviewed. The patient's tolerance of previous anesthesia was also reviewed. The risks and benefits of the procedure and the sedation options and risks were discussed with the patient. All questions were answered, and informed consent was obtained. Prior Anticoagulants: The patient has taken no anticoagulant or antiplatelet agents. ASA Grade Assessment: Per anesthesia. After reviewing the risks and benefits, the patient was deemed in satisfactory condition to undergo the procedure. After obtaining informed consent, the endoscope was passed under direct vision. Throughout the procedure, the patient's blood pressure, pulse, and oxygen saturations were monitored continuously. The Colonoscope was introduced through the mouth, and advanced to the second part of duodenum. The upper GI endoscopy was accomplished without difficulty. The patient tolerated the procedure well. Scope In: 9:03:11 AM Scope Out: 9:07:30 AM Total Procedure Duration Time 0 hours 4 minutes 19 seconds Findings: The Z-line was regular and was found 35 cm from the incisors. A small hiatal hernia was present. The examined duodenum was normal. Mildly erythematous mucosa without bleeding was found in the gastric antrum. Biopsies were taken with a cold forceps for histology. Biopsies were taken with a cold forceps for Helicobacter pylori cultures. No gross lesions were noted in the entire esophagus. Impression: - Z-line regular, 35 cm from the incisors. - Small hiatal hernia. - Normal examined duodenum. - Erythematous mucosa in the antrum. Biopsied. - No gross lesions in the entire esophagus. Recommendation: - Await pathology results. - Discharge patient to home. - Resume previous diet. - Continue present medications. Procedure Code(s): --- Professional --- 52332, Esophagogastroduodenoscopy, flexible, transoral; with biopsy, single or multiple Diagnosis Code(s): --- Professional --- K44.9, Diaphragmatic hernia without obstruction or gangrene K31.89, Other diseases of stomach and duodenum R12, Heartburn CPT copyright 2021 [employer]. All rights reserved. The codes documented in this report are preliminary and upon tape duplicator review may be revised to meet current compliance requirements. MD Theresa Costa MD 06/23/2025 9:27:30 AM This report has been signed electronically. Number of Addenda: 0 Note Initiated On: 06/23/2025 8:56 AM
--- NOTE | 2025-06-23 09:28 | OP.PROVAT_ITS ---
06/23/2025 Maddy Yao Re : Upper GI endoscopy procedure for Evelyn Yao This procedure was performed on Monday, June 23, 2025. My impressions and recommendations are as follows: Impressions : - Z-line regular, 35 cm from the incisors. - Small hiatal hernia. - Normal examined duodenum. - Erythematous mucosa in the antrum. Biopsied. - No gross lesions in the entire esophagus. Recommendations : - Await pathology results. - Discharge patient to home. - Resume previous diet. - Continue present medications. My findings are described in the full procedure note, which is enclosed. If I can be of further assistance, please feel free to contact me at Doctor phone number(s): , Work: . Sincerely, MD Theresa Costa MD 06/23/2025 9:27:30 AM This report has been signed electronically.
--- NOTE | 2025-06-23 09:30 | OP.PROVAT_ITS ---
06/23/2025 Maddy Yao Re : Colonoscopy procedure for Evelyn Yao This procedure was performed on Monday, June 23, 2025. My impressions and recommendations are as follows: Impressions : - Hemorrhoids found on perianal exam. - The entire examined colon is normal. - Non-bleeding internal hemorrhoids. - No specimens collected. Recommendations : - Repeat colonoscopy in 10 years for screening purposes. - depending on overall health at time of possible repeat - Continue present medications. My findings are described in the full procedure note, which is enclosed. If I can be of further assistance, please feel free to contact me at Doctor phone number(s): , Work: . Sincerely, MD Theresa Costa MD 06/23/2025 9:30:10 AM This report has been signed electronically.
--- NOTE | 2025-06-23 09:30 | OP.COLON_ITS ---
Patient Name: Evelyn Calle Procedure Date: 06/23/2025 9:07 AM Date of : 1955 Age: 70 Procedure: Colonoscopy Indications: Screening for colorectal malignant neoplasm Providers: Theresa Maurice MD Referring MD: Maddy Yao Medicines: Monitored Anesthesia Care Patient Profile: This is a 70 year old female. Last Colonoscopy: 2014. Complications: No immediate complications. Procedure: Pre-Anesthesia Assessment: - Prior to the procedure, a History and Physical was performed, and patient medications and allergies were reviewed. The patient's tolerance of previous anesthesia was also reviewed. The risks and benefits of the procedure and the sedation options and risks were discussed with the patient. All questions were answered, and informed consent was obtained. Prior Anticoagulants: The patient has taken no anticoagulant or antiplatelet agents. ASA Grade Assessment: Per anesthesia. After reviewing the risks and benefits, the patient was deemed in satisfactory condition to undergo the procedure. After I obtained informed consent, the scope was passed under direct vision. Throughout the procedure, the patient's blood pressure, pulse, and oxygen saturations were monitored continuously. The Colonoscope was introduced through the anus and advanced to the cecum, identified by appendiceal orifice and ileocecal valve. The patient tolerated the procedure well. The colonoscopy was somewhat difficult due to a tortuous colon. Scope In: 9:08:29 AM Scope Withdrawal Time 0 hours 6 minutes 18 seconds Scope Out: 9:22:16 AM Total Procedure Duration Time 0 hours 13 minutes 47 seconds Findings: Hemorrhoids were found on perianal exam. The entire examined colon appeared normal. Non-bleeding internal hemorrhoids were found. The hemorrhoids were Grade I (internal hemorrhoids that do not prolapse). Impression: - Hemorrhoids found on perianal exam. - The entire examined colon is normal. - Non-bleeding internal hemorrhoids. - No specimens collected. Recommendation: - Repeat colonoscopy in 10 years for screening purposes. - depending on overall health at time of possible repeat - Continue present medications. Procedure Code(s): --- Professional --- G0121, PT, Colorectal cancer screening; colonoscopy on individual not meeting criteria for high risk Diagnosis Code(s): --- Professional --- Z12.11, Encounter for screening for malignant neoplasm of colon K64.0, First degree hemorrhoids CPT copyright 2021 [employer]. All rights reserved. The codes documented in this report are preliminary and upon diesel engine mechanic review may be revised to meet current compliance requirements. MD Theresa Costa MD 06/23/2025 9:30:10 AM This report has been signed electronically. Number of Addenda: 0 Note Initiated On: 06/23/2025 9:07 AM
--- NOTE | 2025-06-23 09:30 | PCM.POST.ANE ---
Anesthesia: Postop Eval I Current Vital Signs Temperature: 98.2 F Pulse Rate: 74 Blood Pressure: 110/58 Respiratory Rate: 16 Pulse Ox: 95 Oxygen Delivery Method: Room Air Assessment Airway patent: Yes Spontaneous unlabored respirations: Yes Mental status: Asleep nausea: No Vomiting: No Anesthesia Complication: No Fluid Hydration Crystalloid volume administer (ml): 600 Total IV fluid infused: 600 Progress Note Anesthesia document: Postop Eval 1 completed: Yes
--- NOTE | 2025-06-23 10:27 | PCM.POSTANE2 ---
Anesthesia Postop Eval I Sum Postop Eval Completion status Anesthesia document: Postop Eval 1 completed: Yes Anesthesia Postop Eval I Summary Anesthesia Postop Eval I Summary: Anesthesia Postop Eval I: Assessment Summary Airway patent Yes 06/23/25 09:31 [email or web address] Spontaneous unlabored Yes 06/23/25 09:31 [email or web address] respirations Mental status Asleep 06/23/25 09:31 [email or web address] nausea No 06/23/25 09:31 [email or web address] Vomiting No 06/23/25 09:31 [email or web address] Anesthesia Postop Eval I: Fluid Summary Crystalloid volume administer 600 06/23/25 09:31 [email or web address] (ml) Colloids volume administered ( ml) Blood Product volume administered (ml) Total IV fluid infused 600 06/23/25 09:31 [email or web address] Anesthesia Postop Eval I: Summary Notes Anesthesia Complication No 06/23/25 09:31 [email or web address] Anesthesia Complication Comment: Post-operative progress note Anesthesia: Postop Eval II Evaluation Mental status: Awake Pain Level: 0 nausea: No Vomiting: No Complications Anesthesia Complication: No
== END 2025-06-23 10:21 | disposition home or self-care (01) ==
LOC: EN 06:57 → AC 06:58
PROVIDERS: PCP Physician Assistant; Referring Provider Physician Assistant; Visit Provider Surgery
DX: Z12.11 Encounter for screening for malignant neoplasm of colon (principal); K44.9 Diaphragmatic hernia without obstruction or gangrene; K29.50 Unspecified chronic gastritis without bleeding; K64.0 First degree hemorrhoids; K21.9 Gastro-esophageal reflux disease without esophagitis; Z87.891 Personal history of nicotine dependence; Z79.899 Other long term (current) drug therapy; E03.9 Hypothyroidism, unspecified; Z79.890 Hormone replacement therapy
CPT/HCPCS: 43239; G0121; 88305; 88342; J2405